=== PATIENT | male | born 1990 | race Two or more races ===

== ENCOUNTER → 2021-10-05 08:54 | Outpatient (BNVA) | payer MEDICAID, SELFPAY | PROVIDERS: PCP Internal Medicine; Visit Provider Internal Medicine Endocrinology, Diabetes & Metabolism | DX: E10.65 Type 1 diabetes mellitus with hyperglycemia (principal) | CPT/HCPCS: 82947; 83036; 99202 ==

== ENCOUNTER 2021-10-09 13:44 | Outpatient (REF) | payer MEDICAID, SELFPAY ==
[2021-10-09 15:16] LABS: Thyroid Stimulating Hormone 0.69 uIU/mL (0.32-4.0)
[2021-10-09 16:03] LABS: Creatinine Urine 72.47 mg/dL; Microalbumin Urine < 5.0 mg/L
[2021-10-12 14:17] LABS: Glutamic acid decarboxylase Ab <5 IU/mL (<5)
== END 2021-10-09 13:45 | disposition home or self-care (01) ==
LOC: HO.LAB 13:44
PROVIDERS: PCP Internal Medicine; Visit Provider Internal Medicine Endocrinology, Diabetes & Metabolism
DX: E10.65 Type 1 diabetes mellitus with hyperglycemia (principal)
CPT/HCPCS: 36415; 82043; 84439; 84443; 86341

== ENCOUNTER → 2021-10-20 07:55 | Outpatient (BNVA) | payer MEDICAID, SELFPAY | PROVIDERS: PCP Internal Medicine; Visit Provider Registered Nurse Diabetes Educator | DX: E10.65 Type 1 diabetes mellitus with hyperglycemia (principal) | CPT/HCPCS: 99211 ==

== ENCOUNTER → 2021-10-30 09:56 | Outpatient (BNVA) | payer MEDICAID, SELFPAY | PROVIDERS: PCP Internal Medicine; Visit Provider Dietitian, Registered | DX: E10.65 Type 1 diabetes mellitus with hyperglycemia (principal) | CPT/HCPCS: 97802 ==

== ENCOUNTER → 2021-11-03 09:58 | Outpatient (BNVA) | payer MEDICAID, SELFPAY | PROVIDERS: PCP Internal Medicine; Visit Provider Registered Nurse Diabetes Educator | DX: E10.65 Type 1 diabetes mellitus with hyperglycemia (principal); Z71.89 Other specified counseling | CPT/HCPCS: 99211 ==

== ENCOUNTER → 2021-12-04 10:05 | Outpatient (BNVA) | payer MEDICAID, SELFPAY | PROVIDERS: PCP Internal Medicine; Visit Provider Dietitian, Registered | DX: E10.65 Type 1 diabetes mellitus with hyperglycemia (principal) | CPT/HCPCS: 97803 ==

== ENCOUNTER → 2022-05-02 09:41 | Outpatient (BNVA) | payer MEDICAID, SELFPAY | PROVIDERS: PCP Internal Medicine; Visit Provider Internal Medicine Endocrinology, Diabetes & Metabolism | DX: E10.65 Type 1 diabetes mellitus with hyperglycemia (principal) | CPT/HCPCS: 82947; 83036; 99212 ==

== ENCOUNTER 2022-05-03 10:04 | Outpatient (REF) | payer MEDICAID, SELFPAY | END 2022-05-03 10:05 | disposition home or self-care (01) | LOC: HO.LAB 10:04 | PROVIDERS: PCP Internal Medicine; Visit Provider Internal Medicine Endocrinology, Diabetes & Metabolism | DX: Z13.89 Encounter for screening for other disorder (principal) ==

== ENCOUNTER 2022-05-10 15:17 | Outpatient (REF) | payer MEDICAID, SELFPAY ==
[2022-05-10 16:32] LABS: Glucose Random 215 mg/dL (60-115)
[2022-05-11 22:43] LABS: C Peptide 3.55 ng/mL (0.80-3.85)
== END 2022-05-10 15:18 | disposition home or self-care (01) ==
LOC: HO.LAB 15:17
PROVIDERS: PCP Internal Medicine; Visit Provider Internal Medicine Endocrinology, Diabetes & Metabolism
DX: E10.65 Type 1 diabetes mellitus with hyperglycemia (principal)
CPT/HCPCS: 36415; 82947; 84681

== ENCOUNTER 2022-12-20 16:01 | Outpatient (REF) | payer MEDICAID, SELFPAY ==
[2022-12-20 18:52] LABS: Anion Gap 15 (12-20); Blood Urea Nitrogen 12 mg/dL (9-16); Calcium 8.3 mg/dL (8.4-10.2); Carbon Dioxide 21 mmol/L (22-29); Chloride 106 mmol/L (96-108); Cholesterol 155 mg/dL; Estimated Glomerular Filt Rate > 60; Glucose Random 258 mg/dL (60-115); HDL Cholesterol 30 mg/dL; LDL Cholesterol Calculated 67 mg/dl; Potassium 3.9 mmol/L (3.3-5.1); Sodium 138 mmol/L (135-145); Triglycerides 290 mg/dL
[2022-12-20 18:59] LABS: Creatinine Urine 171.36 mg/dL; Microalbum/Creatinine Ratio Ur 7.5 ug/mg cr
== END 2022-12-20 16:02 | disposition home or self-care (01) ==
LOC: HO.LAB 16:01
PROVIDERS: PCP Internal Medicine; Visit Provider Internal Medicine Endocrinology, Diabetes & Metabolism
DX: E10.65 Type 1 diabetes mellitus with hyperglycemia (principal)
CPT/HCPCS: 36415; 80048; 80061; 82043

== ENCOUNTER 2022-12-21 09:17 | Outpatient (AMB) | payer MEDICAID, SELFPAY ==
--- NOTE | 2022-12-21 09:19 | MHC.OFFVIS ---
Intake Vital Signs 12/21/22 09:23 Height 5 ft 3 in Weight 222 lb 3.615 oz BMI 39.4 BP 140/86 H Blood Pressure Location Lt brachial Position Sitting Pulse 69 Intake Visit Reasons: DM Intake Note: Patient present today to follow up on Type 1 Diabetes Mellitus. Patient receives DME supplies through: [employer] Last Diabetic Eye exam: Last Podiatry Visit: Random Glucose: 292mg/dl HgA1C: 11.3 Barrel Tester Required: No Accompanied by: Self / Same As Patient Allergies levofloxacin [From Levaquin] Adverse Reaction (Verified 12/21/22 09:26) Swelling, drooling quetiapine [From Seroquel] Adverse Reaction (Verified 12/21/22 09:26) Swelling HPI HPI Comments History of Present Illness Details 32 YO M with is seen in consultation for T1DM at the request of PCP. Initially diagnosed with TDM in 2 wks ago 2021 when presented with DKA. Was initially started on treatment with insulin . Current regimen: Lantus 37 units Humalog 6- 10 units AC TID Tried Mounjaro - had GI side effects Unfortunately, patient did not bring log book or glucometer to follow-up visit Does not Reports low sugars never. . Family history of autoimmunity no -in grandparents have Type 2 Has eyes checked yearly, last eye exam yrs ago needs to make appt , no retinopathy. Denies neuropathy, . Denies nephropathy,Not on FRANCA/ARB. Has HLD, on statin recently started by PCP. Denies history of CAD. Not Had diabetes education. Diet/Carb counting: No Denies prior episodes of DKA. Denies prior severe episodes of hypoglycemia requiring help or hospitalization. Labs: Anti-LOREN 65 Ab were negative. C-peptide response was adequate [facility] Medical History (Updated 12/05/21 @ 14:11 by Krupa Rodriguez, RD, LDN) Uncontrolled type 1 diabetes mellitus with hyperglycemia, without long-term current use of insulin Surgical History History of lung surgery Family History Mother Arthritis Other Family history of diabetes mellitus Social History Alcohol intake: current Alcohol intake frequency: a few times a week Patient Tobacco Use Status: Never used Tobacco Substance Use Type: Marijuana Physical Exam Vital Signs: Last Vital Signs Pulse 69 12/21/22 09:23 BP 140/86 H 12/21/22 09:23 BMI result Body Mass Index 39.4 Absence of Cushingoid features. Absence of acromegalic features. Neck exam reveals nl size thyroid about 15 gms. No thyroid nodules palpable. No carotid bruits present. Lungs CTA. Heart S1 S2, Reg R/R. No M/R/ G. Skin exam reveals absence of vitiligo or acanthosis nigricans. Abdominal exam reveals Soft NT/ND with NA BS. No organomegaly present. Extrem Other: Visual exam of foot performed. No ulcerations or open lesions. No onchomycosis, no callouses.Pulses 2 + distally. Sensation intact to monofilament exam. Vibratory sensation sensed 10 seconds in right, 10 seconds in left with 128 Hz tuning fork Results AMB Hemoglobin A1c AMB Hemoglobin A1c 11.3 % Last Edit by Lashay Tompkins on 12/21/22 09:44 Results Reviewed Results Reviewed: 12/21/22 09:30 Glucose, Whole Blood Routine Laboratory Last Values Glucose (Clinic) 292 mg/dL (60-115) H 12/21/22 09:30 Assessment & Plan Assessment & Plan (1) Uncontrolled type 1 diabetes mellitus with hyperglycemia, without long-term current use of insulin: Comment: Pt gaining weight, he has gained 13 lbs from October to November Code(s): E10.65 - Type 1 diabetes mellitus with hyperglycemia Plan: Is a 32-year-old male recently admitted with new onset diabetes? Type 1 versus type 2 with atypical presentation of DKA. He is currently being treated with basal-bolus insulin with excellent glycemic control. There is no known microvascular or macrovascular complications . Antibodies were negative suggesting presence of type 2 diabetes. Measurement of C-peptide shows patient has good insulin reserve Plan is to start Trulicity 0.75 mg Q weekly and titrate as patient tolerates. Will also prescribe Dexcom G7 S patient to technical supervisor the Dexcom G7 prior to initiating the Trulicity. Went over side effects of Trulicity including but not limited to nausea, vomiting risk pancreatitis. Could also start metformin and/or an SGLT 2 inhibitor in future if needed. Will also have patient follow up with informatics educator Orders: Orders AMB Hemoglobin A1c Today E11.9 - Type 2 diabetes mellitus without complications Medications: New blood-glucose sensor (Dexcom G7 Sensor device) As directed change every 10 days 3 ea 4RF dulaglutide (Trulicity) 0.75 mg (0.5 mL) subcut QWEEK 2 mL 5RF Coding Level of Care Code Est Pt Level 4 (63562) Diagnoses Uncontrolled type 1 diabetes mellitus with hyperglycemia, without long-term current use of insulin E10.65
[2022-12-21 09:23] VITALS: BP 140/86; PULSE 69; BMI 39.4
[2022-12-21 09:34] LABS: Glucose, Whole Blood 292 mg/dL (60-115)
== END 2022-12-21 09:45 | disposition home or self-care (01) ==
PROVIDERS: PCP Internal Medicine; Visit Provider Internal Medicine Endocrinology, Diabetes & Metabolism
DX: E11.9 Type 2 diabetes mellitus without complications (principal); E10.65 Type 1 diabetes mellitus with hyperglycemia
CPT/HCPCS: 99214

== ENCOUNTER → 2022-12-21 09:17 | Outpatient (BNVA) | payer MEDICAID, SELFPAY | PROVIDERS: Visit Provider Internal Medicine Endocrinology, Diabetes & Metabolism | DX: E10.65 Type 1 diabetes mellitus with hyperglycemia (principal) | CPT/HCPCS: 82947; 83036; 99212 ==

== ENCOUNTER 2023-02-28 14:33 | Outpatient (REF) | payer MEDICAID, SELFPAY ==
--- NOTE | ~2023-02-28 | XR_ITS ---
EXAMINATION: XR HIP, RIGHT CLINICAL INFORMATION: Right hip pain. COMPARISON: None available. TECHNIQUE: AP and frog-leg lateral views of the right hip. FINDINGS: No fracture. Alignment is anatomic. Hip joint space is maintained. Soft tissues are unremarkable. XR/XR hip RT min 2V IMPRESSION: Normal right hip.
[2023-02-28 15:49] LABS: Estimated Average Glucose 260 mg/dL; Hemoglobin A1c % 10.7 % (<6.0)
[2023-02-28 16:27] LABS: Alanine Aminotransferase 21 U/L (0-40); Albumin Level 3.9 g/dL (3.5-5.0); Alkaline Phosphatase 123 U/L (39-117); Anion Gap 17 (12-20); Aspartate Amino Transferase 22 U/L (5-37); Bilirubin Total 0.7 mg/dL (0.0-1.0); Blood Urea Nitrogen 11 mg/dL (9-16); Calcium 8.8 mg/dL (8.4-10.2); Carbon Dioxide 21 mmol/L (22-29); Chloride 102 mmol/L (96-108); Cholesterol 142 mg/dL (<200); Estimated Glomerular Filt Rate > 60; HDL Cholesterol 26 mg/dL (>40); LDL Cholesterol Calculated 58 mg/dL (<100); Sodium 136 mmol/L (135-145); Total Protein 7.7 g/dL (6.5-8.0); Triglycerides 294 mg/dL (<150)
[2023-02-28 17:57] LABS: Glucose Random 485 mg/dL (60-115)
[2023-02-28 18:02] LABS: Creatinine Urine 127.63 mg/dL
== END 2023-02-28 14:34 | disposition home or self-care (01) ==
LOC: HO.LAB 14:33
PROVIDERS: PCP Internal Medicine; Visit Provider Internal Medicine
DX: Z00.01 Encounter for general adult medical examination with abnormal findings (principal); M25.551 Pain in right hip; E11.65 Type 2 diabetes mellitus with hyperglycemia; E78.00 Pure hypercholesterolemia, unspecified; I10 Essential (primary) hypertension
CPT/HCPCS: 36415; 73502; 80053; 80061; 82043; 82570; 83036

== ENCOUNTER 2023-07-24 08:09 | Outpatient (AMB) | payer OTHER, SELFPAY ==
--- NOTE | 2023-07-24 08:12 | A.OFFVIS_ITS ---
Intake Vital Signs 07/24/23 08:13 Height 53 ft Weight 208 lb 8.917 oz BMI 0.4 BP 130/94 H Blood Pressure Location Lt brachial Position Sitting Pulse 70 Pulse Source Pulse Oximeter Intake Visit Reasons: DM-Confirmed Intake Note: Patient presents today to follow up on D1MT. Last Diabetic Eye exam: 05/2023 Last Podiatry Visit: Doesn't have one. Random Glucose: 323 mg/dl HgA1c: 11.9% Three Dimensional Map Modeler Required: No Allergies levofloxacin [From Levaquin] Adverse Reaction (Verified 12/21/22 09:26) Swelling, drooling quetiapine [From Seroquel] Adverse Reaction (Verified 12/21/22 09:26) Swelling Medication List - Last Reconciled 07/24/23 by Roderick Trejo MD alcohol swabs (Alcohol Prep Pads) pad topical atorvastatin 40 mg PO DAILY blood sugar diagnostic (FreeStyle Lite Strips) As directed 3 times a day blood-glucose sensor ([employer] G7 Sensor device) As directed change every 10 days dulaglutide (Trulicity) 1.5 mg (0.5 mL) subcut QWEEK glucagon 3 mg/actuation (Baqsimi) 3 mg intranasal ONCE insulin glargine-yfgn (Semglee (insulin glargine-yfgn) Pen) 28 units subcut DAILY insulin lispro (Humalog KwikPen (U-100) Insulin) 6 - 16 units subcut TID lancets (FreeStyle Lancets) As directed 3 times a day losartan 50 mg PO DAILY pen needle, diabetic (BD Ultra-Fine Mini Pen Needle) As directed pen needle, diabetic (BD Stephanie 2nd Gen Pen Needle) As directed HPI HPI Comments History of Present Illness Details 32 YO M with is seen in consultation fo r T1DM at the request of PCP. Initially diagnosed with TDM in 2 wks ago 2021 when presented with DKA. Was initially started on treatment with insulin . Current regimen: Lantus 37 units Humalog 6- 10 units AC TID Tried Mounjaro - had GI side effects . On Trulicity 0.75 mg Q weekly Unfortunately, patient did not bring log book or glucometer to follow-up visit. Was not on sensor but started today Does not Reports low sugars never. . Family history of autoimmunity no -in grandparents have Type 2 Has eyes checked yearly, last eye exam2 mos ago , no retinopathy. Denies neuropathy, . Denies nephropathy,Not on FRANCA/ARB. Has HLD, on statin recently started by PCP. Denies history of CAD. Had diabetes education. Diet/Carb counting: No Denies prior episodes of DKA. Denies prior severe episodes of hypoglycemia requiring help or hospitalization. No recent episodes of hypoglycemia Labs: Anti-LOREN 65 Ab were negative. C-peptide response was adequate [facility] Medical History (Updated 12/24/22 @ 16:51 by Roderick Trejo MD) Uncontrolled type 2 diabetes mellitus with hyperglycemia Uncontrolled type 1 diabetes mellitus with hyperglycemia, without long-term current use of insulin Surgical History History of lung surgery Family History Mother Arthritis Other Family history of diabetes mellitus Social History Alcohol intake: current Alcohol intake frequency: a few times a week Patient Tobacco Use Status: Never used Tobacco Substance Use Type: Marijuana Physical Exam Vital Signs: Last Vital Signs Pulse 70 07/24/23 08:13 BP 130/94 H 07/24/23 08:13 BMI result Body Mass Index 0.4 Absence of Cushingoid features. Absence of acromegalic features. Neck exam reveals nl size thyroid about 15 gms. No thyroid nodules palpable. No carotid bruits present. Lungs CTA. Heart S1 S2, Reg R/R. No M/R/ G. Skin exam reveals absence of vitiligo or acanthosis nigricans. Abdominal exam reveals Soft NT/ND with NA BS. No organomegaly present. Extrem Other: Visual exam of foot performed. No ulcerations or open lesions. No onchomycosis, no callouses.Pulses 2 + distally. Sensation intact to monofilament exam. Vibratory sensation sensed 10 seconds in right, 10 seconds in left with 128 Hz tuning fork Results AMB Hemoglobin A1c AMB Hemoglobin A1c 11.9 % Last Edit by MONI Edwards on 07/24/23 08:33 Results Reviewed Results Reviewed: Laboratory Last Values Glucose (Clinic) 323 mg/dL (60-115) H 07/24/23 08:22 Assessment & Plan Assessment & Plan (1) Uncontrolled type 1 diabetes mellitus with hyperglycemia, without long-term current use of insulin: Comment: Pt gaining weight, he has gained 13 lbs from October to November Code(s): E10.65 - Type 1 diabetes mellitus with hyperglycemia Plan: See plan for type 2 diabetes (2) Uncontrolled type 2 diabetes mellitus with hyperglycemia: Code(s): E11.65 - Type 2 diabetes mellitus with hyperglycemia Plan: Is a 32-year-old male recently admitted with new onset Type 2 DM diabetes? He is currently being treated with basal-bolus insulin with excellent glycemic control. There is no known microvascular or macrovascular complications . Antibodies were negative suggesting presence of type 2 diabetes. Plan is to increase the Trulicity to 1.5 mg Q weekly will have the patient r reinitiate the sensor Dexcom. . Will also have patient follow up with nurse educator. Once again, went over relationship with the patient of poor glycemic control to development of progression complications Orders: Orders AMB Hemoglobin A1c Today E11.65 - Type 2 diabetes mellitus with hyperglycemia, Z13.9 - Encounter for screening, unspecified Medications: New dulaglutide (Trulicity) 1.5 mg (0.5 mL) subcut QWEEK 2 mL 5RF Discontinued dulaglutide (Trulicity) Discontinued Reason: Doctor's Order 0.75 mg (0.5 mL) subcut QWEEK 2 mL 5RF Coding Level of Care Code Est Pt Level 4 (48346) Diagnoses Uncontrolled type 1 diabetes mellitus with hyperglycemia, without long-term current use of insulin E10.65 Uncontrolled type 2 diabetes mellitus with hyperglycemia E11.65
[2023-07-24 08:13] VITALS: BP 130/94; PULSE 70
[2023-07-24 08:26] LABS: Glucose, Whole Blood 323 mg/dL (60-115)
== END 2023-07-24 09:02 | disposition home or self-care (01) ==
PROVIDERS: PCP Internal Medicine; Visit Provider Internal Medicine Endocrinology, Diabetes & Metabolism
DX: E11.65 Type 2 diabetes mellitus with hyperglycemia (principal); Z79.4 Long term (current) use of insulin
CPT/HCPCS: 99214

== ENCOUNTER → 2023-07-24 08:09 | Outpatient (BNVA) | payer OTHER, SELFPAY | PROVIDERS: PCP Internal Medicine; Visit Provider Internal Medicine Endocrinology, Diabetes & Metabolism | DX: E10.65 Type 1 diabetes mellitus with hyperglycemia (principal) | CPT/HCPCS: 82947; 83036 ==

== ENCOUNTER 2023-08-14 06:58 | Outpatient (AMB) | payer OTHER, SELFPAY ==
--- NOTE | 2023-08-14 07:30 | MHC.AMDMED ---
Intake Intake Visit Reasons: DM-confirmed Injection Molding Machine Offbearer Required: No Accompanied by: Self / Same As Patient Allergies levofloxacin [From Levaquin] Adverse Reaction (Verified 12/21/22 09:26) Swelling, drooling quetiapine [From Seroquel] Adverse Reaction (Verified 12/21/22 09:26) Swelling HPI Comprehensive Diabetes Asmnt Most Recent Diabetes Results: Microalb/Creat Ratio 7.0 ug/mg cr (<30) 02/28/23 Cholesterol 142 mg/dL (<200) 02/28/23 HDL Cholesterol 26 mg/dL (>40) L 02/28/23 Triglycerides 294 mg/dL (<150) H 02/28/23 Creatinine 1.31 mg/dL (0.5-1.4) 02/28/23 Blood Urea Nitrogen 11 mg/dL (9-16) 02/28/23 Sodium 136 mmol/L (135-145) 02/28/23 Potassium 4.0 mmol/L (3.3-5.1) 02/28/23 Chloride 102 mmol/L (96-108) 02/28/23 Carbon Dioxide 21 mmol/L (22-29) L 02/28/23 Calcium 8.8 mg/dL (8.4-10.2) 02/28/23 AST 22 U/L (5-37) 02/28/23 ALT 21 U/L (0-40) 02/28/23 Total Protein 7.7 g/dL (6.5-8.0) 02/28/23 Albumin 3.9 g/dL (3.5-5.0) 02/28/23 [facility] Medical History (Updated 12/24/22 @ 16:51 by Roderick Trejo MD) Uncontrolled type 2 diabetes mellitus with hyperglycemia Uncontrolled type 1 diabetes mellitus with hyperglycemia, without long-term current use of insulin Surgical History History of lung surgery Family History Mother Arthritis Other Family history of diabetes mellitus Social History Alcohol intake: current Alcohol intake frequency: a few times a week Patient Tobacco Use Status: Never used Tobacco Substance Use Type: Marijuana Assessment & Plan Assessment & Plan (1) Uncontrolled type 2 diabetes mellitus with hyperglycemia: Code(s): E11.65 - Type 2 diabetes mellitus with hyperglycemia Plan: CGM Info Instructed Pt on what CGM can and can't do CGM Can: Give Pt minute by minute reading of glucose levels Displays glucose trend arrows that represents the direction glucose levels are fluctuating Give insight on decisions about how to dose insulin CGM cannot: Improve glucose control on its own Completely eliminate the need for all finger sticks Make dosing decision for you CGM is the reading of glucose in the interstitial fluid not actual blood glucose, finger sticks are still necessary when Pt's symptom?s do not match sensor reading and if sensors prompts Pt to do a fingerstick Patient? is interested in the Dexcom G7 Reviewed delay of CGM from fingersticks Reminded pt that if symptoms do not match sensor still needs to check fingersticks. Pump Assessment: Type of DM: Type 2 Dx at age: 31 Previous DKA: yes, at diagnosis 2021 Current Insulin Rx: MDI Patient takes insulin as prescribed: yes Patient? will be restarting Dexcom G7 Downloaded meter today? Patient did not bring meter today Patient? reports glycemic control as: poor Most recent Hgb A1C: 11.9% July 2023 Frequency of low BG: Unknown Low BG treatment: Fruit juice Frequency of high BG: daily Does patient check Ketones? no Has pt been on a pump in the past? no Reviewed insulin pump basics today with Patient. Explained pros and cons of insulin pumps. Showed pt various pumps, infusion sets, and cgms currently available. Reviewed need to wear pump 24/7 and need to change infusion set every 3 days. Also stressed importance of frequent BG checks, 4x daily minimum or use pump that is integrated with CGM.? TDD: 76 units Patient demonstrated motivation for continued insulin pump education and understands the need to complete education prior to starting insulin pump for best outcome. Will follow up for continued education. Coding Level of Care Code Est Pt Level 1 (83237) Diagnoses Uncontrolled type 2 diabetes mellitus with hyperglycemia E11.65
== END 2023-08-14 07:33 | disposition home or self-care (01) ==
PROVIDERS: PCP Internal Medicine; Visit Provider Registered Nurse Diabetes Educator
DX: E11.65 Type 2 diabetes mellitus with hyperglycemia (principal)

== ENCOUNTER → 2023-08-14 06:58 | Outpatient (BNVA) | payer OTHER, SELFPAY | PROVIDERS: PCP Internal Medicine; Visit Provider Registered Nurse Diabetes Educator | DX: E11.65 Type 2 diabetes mellitus with hyperglycemia (principal) | CPT/HCPCS: 99211 ==

== ENCOUNTER 2023-09-04 14:03 | Outpatient (AMB) | payer OTHER, SELFPAY ==
[2023-09-04 14:06] VITALS: BP 120/76; PULSE 94; BMI 37.5
--- NOTE | 2023-09-04 14:06 | A.OFFVIS_ITS ---
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 Patient's symptoms of hemoptysis and recurrent pneumonia that time. Subsequent radiographic diagnose of cancer and undergoing left lower lobectomy. Since then he is done well and has no recurrence issues. A for about a year he has been diagnose with diabetes which has remained uncontrolled with hemoglobin A1c 10.4 range. He is currently on also high-intensity statin therapy since he was diagnose with diabetes and he said last checked his LDL was within normal limits although do not have a copy of it. 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 Symptoms lasted for some time but then dissipated. He then had chest pain over the next 4 days. Since then he has not had any recurrent chest pain. He said he can walk few miles without short of breath if he walks at a normal pace. However if he carries weight up a flight of stairs or tries to run he does get short of breath immediately. Thinks this is due to his reduced pulmonary capacity. He has no wheezing. Denies smoking. Denies any strong family history of premature coronary artery disease. Denies lightheadedness, syncope. No heart failure symptoms. He had EKG done at your office which was abnormal and was therefore referred here for further evaluation. [facility] Medical History Uncontrolled type 2 diabetes mellitus with hyperglycemia Uncontrolled type 1 diabetes mellitus with hyperglycemia, without long-term current use of insulin Surgical History History of lung surgery Family History Mother Arthritis Other Family history of diabetes mellitus Social History Alcohol intake: current Alcohol intake frequency: a few times a week Patient Tobacco Use Status: Never used Tobacco Substance Use Type: Marijuana Physical Exam Vital Signs: Last Vital Signs Pulse 94 09/04/23 14:06 BP 120/76 09/04/23 14:06 BMI result Body Mass Index 37.5 Const General: cooperative, comfortable, no acute distress, alert, awake and Physically active Nutritional Appearance: obese Orientation/consciousness: patient oriented x3 Limitations: no limitations HEENT Head: Yes normocephalic and Yes atraumatic Neck Neck: Yes trachea midline, Yes supple and Yes no JVD Carotids: no bruits Resp Effort & Inspection: normal respiratory effort Auscultation: clear to auscultation bilaterally Cardio Jugular venous distension: no JVD Palpation: normal PMI Rate: regular rate Rhythm: regular rhythm Heart sounds: S1 normal heart sound present, S2 normal heart sound present, no click, no gallops, no murmurs and no rubs GI Auscultation: normal bowel sounds Skin General skin exam: no rashes or lesions noted Neuro General: patient oriented x3 and no focal motor deficits Extrem General: Yes no clubbing, cyanosis or edema Office Procedures EKG Details: EKG shows normal sinus rhythm with inferior Q-waves [id number], Complete Assessment & Plan Assessment & Plan (1) Atypical chest pain: Code(s): R07.89 - Other chest pain Plan: Atypical chest pain in a young male with history of uncontrolled diabetes and hyperlipidemia developed chest pain syndrome after exertional activity although not immediately but a day later. Patient then had the symptoms for about 4 days intermittently. Concern would be myocardial ischemia given his diabetes and hyperlipidemia and sedentary lifestyle. Suggest him to undergo exercise treadmill stress test especially given that his EKG shows Q-waves in lead 3 and AVF which is most likely due to body habitus. Also obtain echocardiogram to assess for LV systolic and diastolic function. As well as to evaluate for wall motion abnormality. These tests will be scheduled in near future. I had a long discussion with him about risk factor modification. Aggressive diabetes management goal hemoglobin A1c less than 7% needs to be pursued. Advised him lifestyle modification with weight loss as well as increase aerobic activity once his cardiac workup was within normal limits. Also target goal LDL less than 70 mg/dL being pursue through office. Follow up in the clinic in 6 weeks time, sooner p.r.n.. Thank you for allowing me to partake in his care Coding Level of Care Code New Pt Level 4 (42717) Diagnoses Atypical chest pain R07.89 CPT Codes EKG - CPT: 12632-[id number], Complete ([id number])
== END 2023-09-04 14:46 | disposition home or self-care (01) ==
PROVIDERS: PCP Internal Medicine; Visit Provider Internal Medicine Cardiovascular Disease
DX: R07.89 Other chest pain (principal)
CPT/HCPCS: 93010; 99204

== ENCOUNTER → 2023-09-04 14:03 | Outpatient (BNVA) | payer OTHER, SELFPAY | PROVIDERS: PCP Internal Medicine; Visit Provider Internal Medicine Cardiovascular Disease | DX: R07.89 Other chest pain (principal); E11.9 Type 2 diabetes mellitus without complications; E78.5 Hyperlipidemia, unspecified | CPT/HCPCS: 93005 ==

== ENCOUNTER → 2023-09-09 08:02 | Outpatient (REF) | payer OTHER, SELFPAY ==
--- NOTE | 2023-09-09 08:04 | CA_ITS ---
Acquisition Time: 2023-09-09 09:22:12 Total Exercise Time: 00:07:55 Test Indications: ATYPICAL CHEST PAIN Medications: HUMALOG ATROVASTATIN Protocol: USMAN Max HR: 160 BPM 85% of Pred: 187 BPM Max BP: 150/080 mmHG Max Work Load: 9.9 METS Exercise stress test exercise 7 min 55 sec of Usman protocol achieving 85% MPHR, with mild SOB, without chest discomfort, without arrhythmias, with normotensive resposne to exercise, without EKG changes. Breathing resolved with rest. Test reviewed with Dr. Nava Referred By: Min Nava Overread By: Keira Juarez
--- NOTE | 2023-09-09 08:04 | CA_ITS ---
Transthoracic Echocardiogram Patient (Last, First, Middle): Bautista Wiggins I Gender: Male Date of : 1990 Age: 33 Procedure Date: 09/09/2023 Procedure Type: Transthoracic Echocardiogram Location: OP Height: 160.02 cm Weight: 94.35 kg BSA: 1.97 m2 Heart Rate: 75 bpm BP: 118 / 82 mmHg Psychiatric Clinical Nurse Specialist: ED Referring MD: Min Nava MD Grapple Operator: Min Nava MD Symptoms: R07.89 - Other chest pain Study Quality: Adequate ECG Rhythm: Sinus Conclusions: - 1. Technically limited study 2. Normal LV ejection fraction 55-60% next 3. Cardiac valvular Dopplers within normal limits Findings Procedure Information Contrast agent, definity, is being given per protocol without apparent complications. The quality of the study was technically difficult. The study quality is limited by patients body habitus. Left Ventricle Normal left ventricular size, thickness, and systolic function. The visually estimated ejection fraction is between 55-60%. Spectral Doppler is indicative of a normal filling pattern. Right Ventricle Normal right ventricular cavity size and systolic function. Atria The left atrium is normal in size. Interatrial shunt cannot be excluded. The right atrium was not well visualized. Aortic Valve The aortic valve structure and function is likely normal. There is no aortic valve stenosis. There is no aortic valve regurgitation. Mitral Valve Likely normal mitral valve structure and function. There is trace mitral valve regurgitation. There is no mitral valve stenosis. Pulmonic Valve The pulmonic valve was not well visualized. Tricuspid Valve The tricuspid valve was not well visualized. Tricuspid regurgitation envelope is inadequate for calculation of right ventricular systolic pressure. Normal right atrial pressure. Great Vessels The aorta was not well visualized. The pulmonary artery was not well visualized. Venous The inferior vena cava is normal in size and collapses greater than 50% with inspiration. Pericardium/Pleural The pericardium was not well visualized. Prior Study Comparison No prior study available for comparison. Measurements 2D Linear Measurements IVSd: 0.79 0.6-0.9/0.6-1.0 cm LVIDd: 4.95 3.9-5.3/4.2-5.9 cm LVIDd Index: 2.51 2.4-3.2/2.2-3.1 cm/m2 LVIDs: 3.40 2.0-3.6 cm LVPWd: 0.76 0.7-1.1 cm LA Diam: 3.80 2.7-3.8/3.0-4.0 cm LAIDs Index: 1.93 1.5-2.3 cm/m2 LV Mass: 159.47 67-162/88-224 g LV Mass Index: 80.95 43-95/49-115 g/m2 LVOT Diam: 2.00 3.0+(-)1.3 cm 2D Systolic Function EF 4C: 57.20 >55% EF 2C: 55.60 >55% EF BiP: 55.70 >55% Mitral Valve MV Pk E: 0.81 MV PK A: 0.75 MV Decel Time: 145.00 E/A: 1.10 E'Lateral: 7.83 E'Medial: 6.53 E/E' Med: 12.30 E/E' Lat: 10.30 PHT: 43.00 MVA PHT: 5.12 Decel [place]: 5.55 Aortic Valve AoV Pk Jose Alberto: 1.22 AoV Pk Grad: 6.00 ELIZABETH: 2.62 LVOT LVOT Pk Jose Alberto: 1.05 LVOT Mn Jose Alberto: 0.73 LVOT VTI: 0.22 LVOT Pk Grad: 4.00 LVOT Mn Grad: 2.00 LVOT Diam: 2.00 LVOT Area: 3.14 Diastolic Function MV Pk E: 0.81 MV Pk A: 0.75 E/A: 1.10 E'Medial: 6.53 E/E' Med: 12.30 E' Laterial: 7.83 E/E' Lat: 10.30 Right Ventricle TAPSE (mm): 15.30 TVS' Jose Alberto: 10.00 Tricuspid Valve RA Press: 8.00 Great Vessels Aorta Sinus of Valsalva: 3.50 2.0-3.5 cm Ao Asc: 2.90 2.1-3.4 cm Pulmonary Veins Pulm Vein S/D 1.00 Pulmonary Valve PV Pk Jose Alberto: 1.06 Peak PV Grad: 4.00 Updated in Other Vendor System with Status of Final Min Nava MD electronically signed on 09/09/2023 4:45:50 PM with status of Final
== END ==
LOC: HO.CARD 08:02
PROVIDERS: PCP Internal Medicine; Visit Provider Internal Medicine Cardiovascular Disease
DX: R07.89 Other chest pain (principal)
CPT/HCPCS: 93017; 93306; Q9957

== ENCOUNTER → 2023-09-09 08:04 | Outpatient (BNV) | payer OTHER, SELFPAY | PROVIDERS: PCP Internal Medicine; Visit Provider Nurse Practitioner | DX: R06.02 Shortness of breath (principal); R07.89 Other chest pain | CPT/HCPCS: 93016; 93018; 93320; 93325; 93350; 93352 ==

== ENCOUNTER 2023-09-11 07:06 | Outpatient (AMB) | payer OTHER, SELFPAY ==
--- NOTE | 2023-09-11 07:25 | MHC.AMDMED ---
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 by: Self / Same As Patient Allergies levofloxacin [From Levaquin] Adverse Reaction (Verified 12/21/22 09:26) Swelling, drooling quetiapine [From Seroquel] Adverse Reaction (Verified 12/21/22 09:26) Swelling HPI Comprehensive Diabetes Asmnt Most Recent Diabetes Results: Microalb/Creat Ratio 7.0 ug/mg cr (<30) 02/28/23 Cholesterol 142 mg/dL (<200) 02/28/23 HDL Cholesterol 26 mg/dL (>40) L 02/28/23 Triglycerides 294 mg/dL (<150) H 02/28/23 Creatinine 1.31 mg/dL (0.5-1.4) 02/28/23 Blood Urea Nitrogen 11 mg/dL (9-16) 02/28/23 Sodium 136 mmol/L (135-145) 02/28/23 Potassium 4.0 mmol/L (3.3-5.1) 02/28/23 Chloride 102 mmol/L (96-108) 02/28/23 Carbon Dioxide 21 mmol/L (22-29) L 02/28/23 Calcium 8.8 mg/dL (8.4-10.2) 02/28/23 AST 22 U/L (5-37) 02/28/23 ALT 21 U/L (0-40) 02/28/23 Total Protein 7.7 g/dL (6.5-8.0) 02/28/23 Albumin 3.9 g/dL (3.5-5.0) 02/28/23 [facility] Medical History Uncontrolled type 2 diabetes mellitus with hyperglycemia Uncontrolled type 1 diabetes mellitus with hyperglycemia, without long-term current use of insulin Surgical History History of lung surgery Family History Mother Arthritis Other Family history of diabetes mellitus Social History Alcohol intake: current Alcohol intake frequency: a few times a week Patient Tobacco Use Status: Never used Tobacco Substance Use Type: Marijuana Assessment & Plan Assessment & Plan (1) Uncontrolled type 2 diabetes mellitus with hyperglycemia: Code(s): E11.65 - Type 2 diabetes mellitus with hyperglycemia Plan: Personal Continuous Glucose Monitor: Patients CGM information reviewed Reviewed patient's sensor data: Hypoglycemia: ? 0% Hyperglycemia:? 40% Time in Range:?60% Average glucose for the last 2 weeks? 174 mg/dL Glucose has improved, Pt reports he has been mmore consistent with take both Lantus and Humalog 15 min before meals Pt has decided to start insulin pump therapy with the ilet. Reviewed how to interpret trend arrows Reminded patient that to check finger sticks if symptoms do not match sensor reading. Discussed lag time between finger stick and sensor data.? Patient able to insert sensor independently at home without issue.? Patient Instructions: Patient instruction: CGM provides information on blood glucose control throughout the day, including hyperglycemia and hypoglycemia. ? Continue to monitor blood glucose as instructed. Follow nutrition guidelines provided. Report any discomfort promptly to health care provider. ?Stay well-hydrated. You can bathe ,shower, swim and exerce while wearing the glucose sensor. Do not submerge glucose sensor in water for more than 30 minutes. Remove sensor for MRI or CAT scan. Avoid Xray machine in airports - remove sensor or request wand Coding Level of Care Code Est Pt Level 1 (94205) Diagnoses Uncontrolled type 2 diabetes mellitus with hyperglycemia E11.65
== END 2023-09-11 07:37 | disposition home or self-care (01) ==
PROVIDERS: PCP Internal Medicine; Visit Provider Registered Nurse Diabetes Educator
DX: E11.65 Type 2 diabetes mellitus with hyperglycemia (principal)

== ENCOUNTER → 2023-09-11 07:06 | Outpatient (BNVA) | payer OTHER, SELFPAY | PROVIDERS: PCP Internal Medicine; Visit Provider Registered Nurse Diabetes Educator | DX: E11.65 Type 2 diabetes mellitus with hyperglycemia (principal) | CPT/HCPCS: 99211 ==

== ENCOUNTER 2023-10-03 09:29 | Outpatient (AMB) | payer OTHER, SELFPAY ==
--- NOTE | 2023-10-03 10:15 | A.OFFVIS_ITS ---
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 by: Self / Same As Patient Allergies levofloxacin [From Levaquin] Adverse Reaction (Verified 12/21/22 09:26) Swelling, drooling quetiapine [From Seroquel] Adverse Reaction (Verified 12/21/22 09:26) Swelling HPI Comprehensive Diabetes Asmnt Most Recent Diabetes Results: No Data to Display [facility] Medical History Uncontrolled type 2 diabetes mellitus with hyperglycemia Uncontrolled type 1 diabetes mellitus with hyperglycemia, without long-term current use of insulin Surgical History History of lung surgery Family History Mother Arthritis Other Family history of diabetes mellitus Social History Alcohol intake: current Alcohol intake frequency: a few times a week Patient Tobacco Use Status: Never used Tobacco Substance Use Type: Marijuana Assessment & Plan Assessment & Plan (1) Uncontrolled type 2 diabetes mellitus with hyperglycemia: Code(s): E11.65 - Type 2 diabetes mellitus with hyperglycemia Plan: Patient presents for pump training for iLet pump and CGM training today. The following topics were reviewed today: -Pump therapy basic concepts: Basal/bolus -Device settings: Bluetooth/mobile connection (if applicable), correct date and time, sound volume -CGM settings(if integrated system): CGM graft views and trend arrows, alerts and alarms, Start new sensor Insulin delivery settings Instructed patient to only use room temperature insulin, how to load cartridge or fill pod, with insulin. Fill tubing and cannula (if applicable) Inserting infusion set or starting pod Troubleshooting after starting new pod or inserting new insulin set: Occlusion, adhesive tape sensitivity, redness Check BG 2 hours after site change Safety information: Importance of a backup plan, for manual injections, proper prescriptions and emergency supplies ketone strips, and rules for testing for ketones Patient was able to insert insulin set today without difficulty. Patient understands the basic concepts of pump therapy, how to give insulin for meals and snacks, how to troubleshoot for hyper and hypoglycemia. Patient will follow up with CDE as instructed Patient will contact CDE with questions or concerns, patient given IT number to support in any technical issues related to insulin pump Patient Instructions: Patient will follow-up with teachers' assistant in 1 week Coding Level of Care Code Est Pt Level 1 (61352) Diagnoses Uncontrolled type 2 diabetes mellitus with hyperglycemia E11.65
== END 2023-10-03 10:51 | disposition home or self-care (01) ==
PROVIDERS: PCP Internal Medicine; Visit Provider Registered Nurse Diabetes Educator
DX: E11.65 Type 2 diabetes mellitus with hyperglycemia (principal)

== ENCOUNTER → 2023-10-03 09:29 | Outpatient (BNVA) | payer OTHER, SELFPAY | PROVIDERS: PCP Internal Medicine; Visit Provider Registered Nurse Diabetes Educator | DX: Z46.81 Encounter for fitting and adjustment of insulin pump (principal); E11.65 Type 2 diabetes mellitus with hyperglycemia | CPT/HCPCS: 99211 ==

== ENCOUNTER 2023-10-15 09:55 | Outpatient (AMB) | payer OTHER, SELFPAY ==
--- NOTE | 2023-10-15 10:08 | MHC.AMDMED ---
Intake Intake Visit Reasons: New pump f/u Allergies levofloxacin [From Levaquin] Adverse Reaction (Verified 12/21/22 09:26) Swelling, drooling quetiapine [From Seroquel] Adverse Reaction (Verified 12/21/22 09:26) Swelling HPI Comprehensive Diabetes Asmnt Most Recent Diabetes Results: Microalb/Creat Ratio 7.0 ug/mg cr (<30) 02/28/23 Cholesterol 142 mg/dL (<200) 02/28/23 HDL Cholesterol 26 mg/dL (>40) L 02/28/23 Triglycerides 294 mg/dL (<150) H 02/28/23 Creatinine 1.31 mg/dL (0.5-1.4) 02/28/23 Blood Urea Nitrogen 11 mg/dL (9-16) 02/28/23 Sodium 136 mmol/L (135-145) 02/28/23 Potassium 4.0 mmol/L (3.3-5.1) 02/28/23 Chloride 102 mmol/L (96-108) 02/28/23 Carbon Dioxide 21 mmol/L (22-29) L 02/28/23 Calcium 8.8 mg/dL (8.4-10.2) 02/28/23 AST 22 U/L (5-37) 02/28/23 ALT 21 U/L (0-40) 02/28/23 Total Protein 7.7 g/dL (6.5-8.0) 02/28/23 Albumin 3.9 g/dL (3.5-5.0) 02/28/23 [facility] Medical History Uncontrolled type 2 diabetes mellitus with hyperglycemia Uncontrolled type 1 diabetes mellitus with hyperglycemia, without long-term current use of insulin Surgical History History of lung surgery Family History Mother Arthritis Other Family history of diabetes mellitus Social History Alcohol intake: current Alcohol intake frequency: a few times a week Patient Tobacco Use Status: Never used Tobacco Substance Use Type: Marijuana Assessment & Plan Assessment & Plan (1) Uncontrolled type 2 diabetes mellitus with hyperglycemia: Code(s): E11.65 - Type 2 diabetes mellitus with hyperglycemia Plan: Patient presents for pump training for iLet pump and CGM training today. The following topics were reviewed today: -Pump therapy basic concepts: Basal/bolus -Always dose 15 minutes prior to meals - Off pump backup insulin plan ??? High Alert: 70 mg/dl ??? Low Alert: 180 mg/dl CGM Above target 7.3% At target 92.2% Below target 0.2% Patient's average glucose for the past 7 days 137 mg/dL TDD: 37.9 units Basal: 18 units Instructed patient to only use room temperature insulin, how to load cartridge or fill pod, with insulin. Fill tubing and cannula (if applicable) Troubleshooting after starting new pod or inserting new insulin set: Occlusion, adhesive tape sensitivity, redness Check BG 2 hours after site change Reviewed Safety information: Importance of a backup plan, for manual injections, proper prescriptions and emergency supplies ketone strips, and rules for testing for ketones Patient understands the basic concepts of pump therapy, how to give insulin for meals and snacks, how to troubleshoot for hyper and hypoglycemia. Patient will follow up with [facility] as needed Patient will contact [facility] with questions or concerns, patient given IT number to support in any technical issues related to insulin pump Portions of this note were created using voice recognition software, please excuse any words or phrases that may have been misinterpreted. Coding Level of Care Code Est Pt Level 1 (85602) Diagnoses Uncontrolled type 2 diabetes mellitus with hyperglycemia E11.65
== END 2023-10-15 10:11 | disposition home or self-care (01) ==
PROVIDERS: PCP Internal Medicine; Visit Provider Registered Nurse Diabetes Educator
DX: E11.65 Type 2 diabetes mellitus with hyperglycemia (principal)

== ENCOUNTER → 2023-10-15 09:55 | Outpatient (BNVA) | payer OTHER, SELFPAY | PROVIDERS: PCP Internal Medicine; Visit Provider Registered Nurse Diabetes Educator | DX: Z46.81 Encounter for fitting and adjustment of insulin pump (principal); E11.65 Type 2 diabetes mellitus with hyperglycemia | CPT/HCPCS: 99211 ==

== ENCOUNTER 2023-11-01 05:37 | Emergency (ER) | payer OTHER, SELFPAY ==
--- NOTE | ~2023-11-01 | XR_ITS ---
EXAMINATION: XR HAND, RIGHT CLINICAL INFORMATION: Injury. COMPARISON: None available. TECHNIQUE: PA, lateral, and oblique views of the right hand. FINDINGS: Mildly displaced impacted fracture involving the base of the fifth digit proximal phalanx. No definite intra-articular extension. No dislocation. Regional soft tissue swelling. XR/XR hand RT 2V IMPRESSION: Mildly displaced impacted fracture involving the base of the fifth digit proximal phalanx.
[2023-11-01 05:39] VITALS: BP 144/93; PULSE 64; RESP 16; TEMP 36.8; O2SAT 99; BMI 38.3
--- NOTE | 2023-11-01 06:39 | ED_ITS ---
HPI - Extremity Problem General Chief complaint: Extremity Injury, Upper Stated complaint: r hand inj Time Seen by Provider: 11/01/23 06:35 Source: patient Mode of arrival: ambulatory Limitations: no limitations History of Present Illness ED Provider: Erin Palacio PA-C HPI Narrative: Patient is a 33 year old assigned male at with a history of DM presenting to the emergency department today with right 5th finger pain. Patient states that 2 days ago he was working on something and fell onto his right hand with a closed fist. Patient states that he has had pain ever since. Patient denies any head strike, loss of consciousness, dizziness, lightheadedness, abdominal pain, nausea, vomiting, fever, chills, blurry vision, double vision, loss of vision, chest pain, difficulty breathing, shortness of breath, back pain, night sweats, pain with urination, increased urinary frequency, increased urinary urgency, blood in his urine or stool, syncope or a near syncopal episode, bowel incontinence, bladder incontinence, or any other complaints at this time. MD Complaint: extremity pain Onset (ago): day(s) (2) Pain Consistency: constant Location: right and other (5th finger) Severity scale (1-10): 4 Quality: aching and dull Radiation: none Relieving factors: immobilization Exacerbating factors: range of motion and palpation Associated symptoms: denies other symptoms Related Data Home Medications ?Medication ?Instructions ?Recorded ?Confirmed alcohol swabs (Alcohol Prep Pads) pad topical 10/05/21 09/04/23 insulin lispro 100 unit/mL 6 - 16 unit subcut TID 10/05/21 09/04/23 subcutaneous pen (Humalog KwikPen (U-100) Insulin) pen needle, diabetic 31 gauge x #50 ea 10/05/21 05/02/22 3/16 (BD Ultra-Fine Mini Pen Needle) blood sugar diagnostic (FreeStyle #10 ea 05/02/22 05/02/22 Lite Strips) lancets 28 gauge (FreeStyle #100 ea 05/02/22 05/02/22 Lancets) pen needle, diabetic 32 gauge x #50 ea 05/02/22 05/02/22/32 (BD Stephanie 2nd Gen Pen Needle) atorvastatin 40 mg tablet 40 mg PO DAILY 07/24/23 09/04/23 losartan 50 mg tablet 50 mg PO DAILY 07/24/23 09/04/23 dulaglutide 1.5 mg/0.5 mL 1.5 mg subcut QWEEK 09/04/23 09/04/23 subcutaneous pen injector (Trulicity) Previous Rx's ?Medication ?Instructions ?Recorded glucagon 3 mg/actuation nasal 3 mg intranasal ONCE #1 ea 10/05/21 spray (Baqsimi) blood-glucose sensor (Dexcom G7 #3 ea 12/21/22 Sensor device) acetone (urine) test (Ketostix #100 ea 09/11/23 strips) insulin glargine 100 unit/mL (3 44 unit (0.44 mL) subcut QAM #45 mL 09/30/23 mL) subcutaneous pen (Lantus Solostar U-100 Insulin) insulin lispro 100 unit/mL See Rx Instructions subcut TID #30 09/30/23 subcutaneous solution (Humalog mL U-100 Insulin) Allergies Allergy/AdvReac Type Severity Reaction Status Date / Time levofloxacin [From Levaquin] AdvReac Swelling, Verified 11/01/23 05:42 drooling quetiapine [From Seroquel] AdvReac Swelling Verified 11/01/23 05:42 Review of Systems Constitutional: Constitutional: Reports no additional constitutional complaints, Denies chills, Denies fever(s) and Denies night sweats Eyes: Eyes: Reports no additional eye complaints, Denies blurry vision, Denies change in vision, Denies diplopia, Denies eye discharge, Denies loss of vision and Denies eye pain ENT: Denies dizziness Cardiovascular: Cardiovascular: Reports no additional cardiovascular complaints, Denies chest pain, Denies lightheadedness, Denies Loss of Consciousness and Denies dyspnea Respiratory: Respiratory: Reports no additional respiratory complaints and Denies dyspnea Gastrointestinal: Gastrointestinal: Reports no additional gastrointestinal c omplaints, Denies abdominal pain, Denies melena, Denies hematochezia, Denies change in bowel habits and Denies change in stool character Genitourinary: Genitourinary: Reports no additional male genitourinary complaints, Denies hematuria, Denies oliguria, Denies difficulty urinating, Denies dysuria, Denies urinary frequency, Denies urinary hesitancy, Denies urinary incontinence and Denies urinary urgency Musculoskeletal: Musculoskeletal: Reports no additional musculoskeletal complaints, Denies numbness and Denies tingling Comments: right 5th finger pain Neurologic: Denies dizziness, Denies loss of vision, Denies numbness and Denies tingling Psychiatric: Psychiatric: Reports no additional psychiatric complaints Endocrine: Endocrine: Reports no additional endocrine complaints Hematologic/Lymphatic: Hematologic/Lymphatic: Reports no additional hematologic/lymphatic complaints Allergic/Immunologic: Allergic/Immunologic: Reports no additional allergic/immunologic complaints PMF Past Medical History Attestation statement: The following information was validated with the patient. Source: old records reviewed and nursing notes reviewed Medical History Uncontrolled type 2 diabetes mellitus with hyperglycemia Uncontrolled type 1 diabetes mellitus with hyperglycemia, without long-term current use of insulin Surgical History History of lung surgery Family History Family History Mother Arthritis Other Family history of diabetes mellitus Social History Social History Alcohol intake: current Alcohol intake frequency: a few times a week Patient Tobacco Use Status: Never used Tobacco Substance Use Type: Marijuana Physical Exam Vital Signs: Vital Signs: Last Vital Signs Temp 97.8 F 11/01/23 08:57 Pulse 62 11/01/23 08:57 Resp 18 11/01/23 08:57 BP 142/89 H 11/01/23 08:57 Pulse Ox 98 11/01/23 08:57 O2 Del Method Room Air 11/01/23 08:57 BMI result Body Mass Index 38.3 Const: General: cooperative, no acute distress, alert and awake Nutritional Appearance: well nourished Orientation/consciousness: patient oriented x3 Limitations: no limitations HEENT: Head: Yes normal to inspection and Yes atraumatic Ears: hearing grossly normal bilaterally and external ears normal General nose exam: Normal external nose present, no nasal discharge noted and no epistaxis Face and sinus: Yes normal facial exam, No abrasion and No laceration Mouth: Normal oral and palatal mucosa present, no drooling and no muffled voice Eyes: General: appearance normal, both eyes and all related structures Periorbital: periorbital findings normal Eyelids: Yes eyelids normal Conjunctivae: conjunctivae normal Pupils: Equal, round and reactive pupils present EOM: EOMs intact bilaterally Neck: Neck: Yes normal visual inspection, Yes full ROM and Yes no lymphadenopathy Chest: Chest palpation & inspection: normal inspection of the chest Resp: Effort & Inspection: normal respiratory effort and able to speak in complete sentences GI: Inspection: Yes normal to inspection Neuro: General: patient oriented x3 and moves all extremities Cranial nerves: Yes Equal, round and reactive pupils present Cognition (Neuro): normal cognition Motor exam (neuro): 5/5 motor strength present throughout Sensory Exam: Normal double simultaneous stimulation for sensation Coordination: [id number] test normal Extrem: Other: pain with palpation of the right 5th finger. Able to passive General: Yes normal to inspection and Yes capillary refill normal Psych: Appearance: grossly normal Mental Status: mental status grossly normal Affect: normal affect Attitude: cooperative Thought process: Normal thought process present Thought content: Normal thought content pr esent Insight: Good insight present (Psych) Medical Decision Making Medical Decision Making MDM Narrative: Patient is a 33 year old assigned male at with a history of DM presenting to the emergency department today with right 5th finger pain. Patient's physical exam was as noted in the physical exam portion of this note. Patient's right hand x-ray showed a mildly displaced impacted fracture involving the base of the 5th digits proximal phalanx. I spoke to the orthopedic PA in home sales consultant who evaluated the patient and recommended an ulnar gutter splint with the 5th finger in extension and mild radial deviation. I explained my physical exam findings as well as all test results to the patient. I answered all questions asked by the patient. Patient's right 5th finger was placed in an ulnar gutter splint, without incident. Patient's PMS was intact prior to and after splint placement. Patient was also placed in a sling, without incident. Patient's PMS was intact prior to and after sling placement. I advised the patient that he should only be using the sling when ambulating. I stressed the importance of the patient taking his medication as prescribed. I stressed the importance of the patient following up with his primary care provider and an orthopedic provider. I stressed the importance of the patient returning to the emergency department immediately if his symptoms were to worsen or if he were to develop any dizziness, shortness of breath, difficulty breathing, chest pain, blurry vision, loss of vision, nausea, vomiting, abdominal pain, fever, chills, back pain, or any other complaints. Patient verbalized agreement and understanding with this treatment plan and discharge. Differential Diagnosis Differential Diagnoses: The differential diagnosis associated with the presentation includes Finger fracture Hand fracture Admission/Observation Consideration of admission/observation: Escalation of care including admission/observation considered Patient would have been admitted to the hospital had his work up had any findings where hospital admission was appropriate and his clinical presentation warranted hospital admission. Consult Healthcare Provider Management of the patient was discussed with: Medical Assistant Per Diem (spoke with the orthopedic PA as noted in the MDM Rationale portion of this note.) Independent Interpretation I performed an independent interpretation of an: Plain X-Ray Interpretation: My interpretation is in agreement with the radiologist's impression of this imaging study. ---- EXAMINATION: XR HAND, RIGHT CLINICAL INFORMATION: Injury. COMPARISON: None available. TECHNIQUE: PA, lateral, and oblique views of the right hand. FINDINGS: Mildly displaced impacted fracture involving the base of the fifth digit proximal phalanx. No definite intra-articular extension. No dislocation. Regional soft tissue swelling. XR/XR hand RT 2V IMPRESSION: Mildly displaced impacted fracture involving the base of the fifth digit proximal phalanx. Dictated By: Craig Silva MD Signed By: Electronically signed by Craig Silva MD 11/01/23 0818 Radiology Impression Discussion of test interpretation with radiology: I have reviewed the radiologist's reading. Procedures Orthopedic Splinting/Casting Injury #1: Side: right Upper Extremity Injury Location: finger (5th) Upper Extremity Immobilizer: sling/shoulder immobilizer and ulnar gutter Critical Care Time Critical Care Time Critical Care Time: Yes Total Critical Care Time: 38 Attestation: I spent 38 minutes of Critical Care Time with this patient. This does not include time spent on separately reported billable procedures. Discharge Plan Discharge Clinical Impression: Finger fracture Patient Disposition: Home, Self-Care Instructions: Finger Fracture (ED) Additional Instructions: Follow up with your primary care provider and an orthopedic provider. Do NOT get the splint wet. Please leave the splint in place. If your fingers begin to tingle or change color, loosen the outside FRANCA wrap. If you find yourself loosening the FRANCA wrap to the point where you see the splinting material underneath, please return to the ER immediately. Return to the emergency department immediately if your symptoms worsen or if you develop any dizziness, shortness of breath, difficulty breathing, chest pain, blurry vision, loss of vision, nausea, vomiting, abdominal pain, fever, chills, back pain, or any other complaints. Prescriptions: No Action (DME) Ketostix Strip See Rx Instructions .Route Qty: 100 4RF Rx Instructions: As directed insulin lispro [Humalog U-100 Insulin] 100 unit/mL solution See Rx Instructions subcut TID Qty: 30 4RF Rx Instructions: infuse up to 80 units via insulin pump subcutaneously 3 times a day; insulin glargine [Lantus Solostar U-100 Insulin] 100 unit/mL (3 mL) insulin pen 44 unit subcut QAM Qty: 45 4RF insulin lispro [Humalog KwikPen Insulin] 100 unit/mL insulin pen 6 - 16 unit subcut TID (DME) pen needle, diabetic [BD Ultra-Fine Mini Pen Needle] 31 gauge x 3/16 needle See Rx Instructions .ROUTE QID Qty: 50 Rx Instructions: As directed alcohol swabs [Alcohol Prep Pads] Pads, Medicated topical Baqsimi 3 mg/actuation spray,non-aerosol 3 mg intranasal ONCE Qty: 1 4RF (DME) lancets [FreeStyle Lancets] 28 gauge misc See Rx Instructions topical QID Qty: 100 Rx Instructions: As directed 3 times a day (DME) pen needle, diabetic [BD Stephanie 2nd Gen Pen Needle] 32 gauge x 5/32 needle See Rx Instructions .ROUTE QID Qty: 50 Rx Instructions: As directed (DME) FreeStyle Lite Strips Strip See Rx Instructions .ROUTE .MEDSUPPLY Qty: 10 Rx Instructions: As directed 3 times a day (DME) Dexcom G7 Sensor Device See Rx Instructions .Route Qty: 3 4RF Rx Instructions: As directed change every 10 days atorvastatin 40 mg tablet 40 mg PO DAILY losartan 50 mg tablet 50 mg PO DAILY Trulicity 1.5 mg/0.5 mL pen injector 1.5 mg subcut QWEEK Referrals: [facility] [Provider Group] (Call to establish and follow up with an orthopedic provider. ) Emelina Yanez MD [Primary Care Provider] - Stand Alone Forms: Work/School Release Interventions: ED Discharge Assessment Last Done: 11/01/23 08:57 Discharge Date/Time: 11/01/23 08:58 Print Language: Togolese
--- NOTE | 2023-11-01 08:04 | P.CONOP_ITS ---
History of Present Illness HPI Consult date: 11/01/23 <LIOR Coleman - Last Filed: 11/01/23 08:29> Chief complaint: r hand inj <LIOR Coleman - Last Filed: 11/01/23 08:29> Narrative: Patient is a 33-year-old male who presents to the ED after a fall onto the ulnar aspect of his right hand 2 days ago. The patient reports that he was attempting repairs on his car, when he slipped, fell, and landed with all of his weight on the ulnar aspect of his right hand. He reports that since that time, he has noticed that he is unable to extend his finger fully, and reports severe pain whenever something applied axial pressure to the small digit. While in the ED, x-rays were taken of his right hand, which demonstrate an extra-articular fracture in the base of the right small finger proximal phalanx. <LIOR Coleman - Last Filed: 11/01/23 08:29> Review of Systems Review of Systems: Yes all other systems are reviewed and are negative <LIOR Coleman - Last Filed: 11/01/23 08:29> [facility] Past Medical History Medical History: Medical History Uncontrolled type 2 diabetes mellitus with hyperglycemia Uncontrolled type 1 diabetes mellitus with hyperglycemia, without long-term current use of insulin <LIOR Coleman - Last Filed: 11/01/23 08:29> Family History Family History: Family History Mother Arthritis Other Family history of diabetes mellitus <LIOR Coleman - Last Filed: 11/01/23 08:29> Surgical History Surgical History: Surgical History History of lung surgery <LIOR Coleman - Last Filed: 11/01/23 08:29> Social History Social History: Social History Alcohol intake: current Alcohol intake frequency: a few times a week Patient Tobacco Use Status: Never used Tobacco Substance Use Type: Marijuana Advance Directives: No Advance Directives Information Provided: Yes <LIOR Coleman - Last Filed: 11/01/23 08:29> Meds Allergies/Adverse reactions: Allergies Allergy/AdvReac Type Severity Reaction Status Date / Time levofloxacin [From Levaquin] AdvReac Swelling, Verified 11/01/23 05:42 drooling quetiapine [From Seroquel] AdvReac Swelling Verified 11/01/23 05:42 <LIOR Coleman - Last Filed: 11/01/23 08:29> Home medications: Home Medications ?Medication ?Instructions ?Recorded ?Confirmed ?Last Taken ?Type alcohol swabs (Alcohol Prep Pads) pad topical 10/05/21 09/04/23 Unknown History insulin lispro 100 unit/mL 6 - 16 unit subcut TID 10/05/21 09/04/23 Unknown History subcutaneous pen (Humalog KwikPen (U-100) Insulin) pen needle, diabetic 31 gauge x #50 ea 10/05/21 05/02/22 Unknown History 3/16 (BD Ultra-Fine Mini Pen Needle) blood sugar diagnostic (FreeStyle #10 ea 05/02/22 05/02/22 Unknown History Lite Strips) lancets 28 gauge (FreeStyle #100 ea 05/02/22 05/02/22 Unknown History Lancets) pen needle, diabetic 32 gauge x #50 ea 05/02/22 05/02/22 Unknown History (BD Stephanie 2nd Gen Pen Needle) atorvastatin 40 mg tablet 40 mg PO DAILY 07/24/23 09/04/23 Unknown History losartan 50 mg tablet 50 mg PO DAILY 07/24/23 09/04/23 Unknown History dulaglutide 1.5 mg/0.5 mL 1.5 mg subcut QWEEK 09/04/23 09/04/23 Unknown History subcutaneous pen injector (Trulicity) <LIOR Coleman - Last Filed: 11/01/23 08:29> Physical Exam Vital Signs: Vital Signs: Last Vital Signs Temp 98.2 F 11/01/23 05:39 Pulse 64 11/01/23 05:39 Resp 16 11/01/23 05:39 BP 144/93 H 11/01/23 05:39 Pulse Ox 99 11/01/23 05:39 O2 Del Method Room Air 11/01/23 05:39 BMI result Body Mass Index 38.3 <LIOR Coleman - Last Filed: 11/01/23 08:29> Const: Other: Patient is alert, oriented, cooperative, and in no acute distress <LIOR Coleman Lori Last Filed: 11/01/23 08:29> HEENT: Head: Yes normocephalic and Yes atraumatic <LIOR Coleman Lori Last Filed: 11/01/23 08:29> Resp: Effort & Inspection: normal respiratory effort and able to speak in complete sentences <LIOR Coleman Lori Last Filed: 11/01/23 08:29> Cardio: Jugular venous distension: no JVD <LIOR Coleman Lori Last Filed: 11/01/23 08:29> Neuro: General: gait normal <LIOR Coleman Lori Last Filed: 11/01/23 08:29> Cognition (Neuro): normal cognition <LIOR Coleman Lori Last Filed: 11/01/23 08:29> Extrem: Other: On inspection, the patient demonstrates mild swelling in the right small finger. The patient holds the right small finger and approximately 30 degrees of flexion at the MCP joint, and 45 degrees of flexion at the PIP joint. There is ulnar deviation noted in the right small finger. Mild pain to palpation of the right small digit. The patient is able to fully make a fist with difficulty, is able to return the small finger to the same position he was holding it at rest, but is unable to extend his small finger fully at the MCP or PIP joints. No rotational deformity noted. NVI. All other findings WNL. <LIOR Coleman Lori Last Filed: 11/01/23 08:29> Psych: Appearance: grossly normal <LIOR Coleman Lori Last Filed: 11/01/23 08:29> Mental Status: mental status grossly normal <LIOR Coleman Lori Last Filed: 11/01/23 08:29> Results Labs Labs: All other labs normal. <LIOR Coleman Last Filed: 11/01/23 08:29> Diagnostic results Wrist/Hand x-ray: report reviewed and image reviewed (X-rays obtained in the ED today and independently reviewed by me, Felix Chahal PA-C, demonstrate extra-articular fracture of the right small finger proximal phalanx, with radial deviation. ) <LIOR Coleman - Last Filed: 11/01/23 08:29> Assessment and Plan (1) Fracture of proximal phalanx of digit of right hand: Qualifiers: Encounter type: initial encounter Fracture type: closed Qualified Code(s): S62.619A - Displaced fracture of proximal phalanx of unspecified finger, initial encounter for closed fracture <LIOR Coleman - Last Filed: 11/01/23 08:29> Status: Acute <LIOR Coleman - Last Filed: 11/01/23 08:29> At this time, the plan for this patient is to be placed into an ulnar gutter splint with the fingers held in extension with mild radial deviation. Patient will be seen in clinic by Dr. Quintana on Saturday for evaluation of fracture and potential extensor tendon injury. In the meantime, patient is advised to avoid heavy lifting with his right hand, the to keep the splint on at all times. <LIOR Coleman - Last Filed: 11/01/23 08:29> Procedures Date of Service Date of Service: 11/01/23 <LIOR Coleman - Last Filed: 11/01/23 08:29> 11/01/23 <Adan Lang PA-C - Last Filed: 11/01/23 08:53>
[2023-11-01 08:41] VITALS: BP 142/89; PULSE 62; RESP 18; TEMP 36.6; O2SAT 98
[2023-11-01 08:57] VITALS: BP 142/89; PULSE 62; RESP 18; TEMP 36.6; O2SAT 98
== END 2023-11-01 08:58 | disposition home or self-care (01) ==
PROVIDERS: Emergency Provider Emergency Medicine; PCP Internal Medicine
DX: S62.606A Fracture of unspecified phalanx of right little finger, initial encounter for closed fracture (principal); M79.644 Pain in right finger(s); W01.10XA Fall on same level from slipping, tripping and stumbling with subsequent striking against unspecified object, initial encounter; Y93.9 Activity, unspecified; Y92.9 Unspecified place or not applicable; Y99.8 Other external cause status
CPT/HCPCS: 29130; 73120; 99283; 99284

== ENCOUNTER → 2023-11-01 05:45 | Outpatient (BNV) | payer OTHER, SELFPAY | PROVIDERS: Emergency Provider Emergency Medicine; PCP Internal Medicine; Visit Provider Physician Assistant | DX: S62.616A Displaced fracture of proximal phalanx of right little finger, initial encounter for closed fracture (principal) | CPT/HCPCS: 99283 ==

== ENCOUNTER 2023-11-05 09:46 | Outpatient (REF) | payer OTHER, SELFPAY ==
--- NOTE | ~2023-11-05 | XR_ITS ---
EXAMINATION: XR HAND, RIGHT CLINICAL INFORMATION: Pain in right hand, attention small finger. COMPARISON: November 01, 2023. TECHNIQUE: 4 views of the hand, right hand. FINDINGS: Redemonstration of mildly displaced, impacted fracture involving the base of the fifth digit proximal phalanx. No definitive intra-articular extension. Regional soft tissue swelling. Fracture lines are less distinct, suggesting some mild interval bridging callus formation. Ulnar minus variance. XR/XR hand RT min 3V IMPRESSION: Redemonstration of mildly displaced, impacted fracture involving the base of the fifth digit proximal phalanx. No definitive intra-articular extension. Regional soft tissue swelling. Fracture lines are less distinct, suggesting some mild interval bridging callus formation.
== END 2023-11-05 09:47 | disposition home or self-care (01) ==
LOC: HO.HOSX 09:46
PROVIDERS: Visit Provider Orthopaedic Surgery
DX: M79.641 Pain in right hand (principal)
CPT/HCPCS: 73130

== ENCOUNTER 2023-11-05 12:25 | Outpatient (AMB) | payer OTHER, SELFPAY ==
--- NOTE | 2023-11-05 12:39 | A.OFFVIS_ITS ---
Vital Signs 11/05/23 12:49 Height 5 ft 3 in Weight 216 lb BMI 38.3 Intake Visit Reasons: FC-RT small digit fx w/ potential extensor tendon Intake Note: Bautista is a 33 year old right hand dominant male who presents today for fracture care on right small digit with potential extensor tendon. Patient reports he lost his footing causing him to trip and fall, attempting to block his face with his right hand he hit his hand on the curb. He presented to [facility] a couple of days later due to swelling and not able to move his finger. Patient was placed into an ulnar gutter splint with the fingers held in extension with mild radial deviation on 11/01/23 by TM. He continues to have pain and discomfort in his SF with a slight tingling sensation at the tip of his small finger. Allergies levofloxacin [From Levaquin] Adverse Reaction (Verified 11/05/23 12:52) Swelling, drooling quetiapine [From Seroquel] Adverse Reaction (Verified 11/05/23 12:52) Swelling HPI HPI FC-RT small digit fx w/ potential extensor tendon: Details: Bautista is a 33 year old right hand dominant Diabetic man who presents for a right small finger fracture, DOI: 10/30/23. He says he tripped and fell, landing on his right hand which he used to protect his face. He was seen in the ED on 11/01/23 for pain & stiffness, and was fitted for an ulnar gutter splint. He presents today complaining of some pain & discomfort in his small finger, and tingling to the tip of his small finger. His most recent HgA1c was 11.9% on 07/24/23. He says he has been working hard to improve his Diabetes and overall health in the last 3 months. He now has an insulin pump & a says his daily sugars are much lower and better controlled. He smokes Marijuana occasionally. 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 He says he has dogs and drives a stick shift, which he is worried will be difficult. He is concerned there will not be light duty for him at work. [facility]LY [facility], [facility] Medical History Uncontrolled type 2 diabetes mellitus with hyperglycemia Uncontrolled type 1 diabetes mellitus with hyperglycemia, without long-term current use of insulin Surgical History History of lung surgery Family History Mother Arthritis Other Family history of diabetes mellitus Social History (Updated 11/05/23 @ 12:48 by MONI Montes) Alcohol intake: current Alcohol intake frequency: a few times a week Patient Tobacco Use Status: Never used Tobacco Substance Use Type: Marijuana Current occupational status: employed Current occupation: [employer] [facility] [facility] [place], right hand dominant Review of Systems Const All systems reviewed & are unremarkable except as noted in HPI and below Physical Exam Vital Signs: BMI result Body Mass Index 38.3 Const General: cooperative, healthy appearing and no acute distress Orientation/consciousness: patient oriented x3 HEENT Head: Yes normocephalic and Yes atraumatic Eyes EOM: EOMs intact bilaterally Resp Effort & Inspection: normal respiratory effort and able to speak in complete sentences Cardio Jugular venous distension: no JVD Skin General skin exam: turgor normal Rashes: no rashes Neuro General: patient oriented x3 Extrem Other: Evaluation of Right Upper Extremity: The patient is alert, oriented, and in no acute distress Neuro: Median, Ulnar, Radial nerves motor and sensory intact and sensation is normal to the tips of all digits Vascular: Cap refill brisk ROM: He can bring his fingers closed to a weak fist. When extending his digits, he went into some hyper extension extension at the small finger fracture site and had an ~30-40 degree extensor lag at the PIP joint When bringing the MCP joint into flexion, this reduced the PIP joint to an ~10 degree extensor lag Mild ABduction of the small finger, he could actively ADduct No clinical mal-rotation He has a clinical apex volar angular deformity at the small finger base of the proximal phalanx fracture site Radiographs: 3 views of the right hand, with attention to the small finger, were taken and viewed by me today in clinic. They show a small finger proximal phalanx base fracture, with ~23 degrees+ apex volar angulation and slight apex radial angulation Psych Appearance: grossly normal Affect: normal affect Attitude: cooperative Assessment & Plan Assessment & Plan (1) Fracture of proximal phalanx of digit of right hand: Comment: R SF Code(s): S62.619A - Displaced fracture of proximal phalanx of unspecified finger, initial encounter for closed fracture Category: Medical Qualifiers: Encounter type: initial encounter Fracture type: closed Qualified Code(s): S62.619A - Displaced fracture of proximal phalanx of unspecified finger, initial encounter for closed fracture (2) Uncontrolled type 2 diabetes mellitus with hyperglycemia: Code(s): E11.65 - Type 2 diabetes mellitus with hyperglycemia Category: Medical Plan Assessment & Plan: 1. Right small finger proximal phalanx base fracture DOI: 10/30/23 Good FDS & FDP tendon function I educated him about this condition I discussed operative and non-operative treatment options The patient would like to proceed with surgery His ring & small fingers were rober-taped today. The risks and benefits of operative treatment were discussed with the patient and the patient wishes to proceed with surgery. These risks include, but are not limited to risk of damage to blood vessels, nerves, tendons, infection, recurrence, incomplete relief of preoperative symptoms, persistent pain, possible need for further surgery and the risks associated with regional blocks and anesthesia. The plan is to take the patient to the operating room sometime on either 11/07/23 or 11/11/23 for the following procedures: 1. Left small finger CRPP, under general All of the preoperative paperwork including the consent was reviewed today. All the patient's questions were answered. The patient understands that they will be contacted by our field artillery cannoneer soon to schedule this procedure He denies blood thinners, asthma, heart, lung, kidney issues He is a Diabetic, his most recent HgA1c was 11.9% on 07/24/23. He has been working on managing his Diabetes in the last few months and feels he has greatly improved since he began using an insulin pump I educated him about the effects of smoking on bone healing, and explained that he should quit smoking Marijuana for the next few weeks at least while he is healing. He expressed understanding. Scribed for Makayla Quintana MD by Blayne Gilliland, medical manager, on 11/05/23 at 1:05 PM, EST. Orders: Orders XR hand RT min 3V Today M79.641 - Pain in right hand Coding Level of Care Code Est Pt Level 4 (90214) Diagnoses Closed fracture of proximal phalanx of digit of right hand, initial encounter S62.619A Encounter type: initial encounter Fracture type: closed Uncontrolled type 2 diabetes mellitus with hyperglycemia E11.65
[2023-11-05 12:49] VITALS: BMI 38.3
== END 2023-11-05 13:26 | disposition home or self-care (01) ==
PROVIDERS: PCP Internal Medicine; Visit Provider Orthopaedic Surgery
DX: S62.616A Displaced fracture of proximal phalanx of right little finger, initial encounter for closed fracture (principal); E11.65 Type 2 diabetes mellitus with hyperglycemia
CPT/HCPCS: 99214

== ENCOUNTER 2023-11-11 08:58 | Day surgery (SDC) | payer OTHER, SELFPAY ==
[2023-11-11] VITALS (8 sets, daily range): BP systolic 89–116; BP diastolic 50–77; PULSE 57–89; RESP 16–18; TEMP 36.2–37.2; O2SAT 94–99; BMI 39.4
--- NOTE | ~2023-11-11 | FL_ITS ---
EXAMINATION: XR FLUOROSCOPY WITH IMAGES CLINICAL INFORMATION: Fracture right small finger. COMPARISON: Right hand radiographs 11/05/2023. TECHNIQUE: Fluoroscopy Supervised By: Dr. Makayla Quintana. Fluoroscopy Time: 21.92 seconds. Cumulative Dose: 0.4709 mGy. DAP: 0.0285 Gycm2. Images: 3. FINDINGS: Intraoperative fluoroscopy and spot films were performed during a procedure in the OR. 2 pins are seen through the fractured base of the fifth proximal phalanx. Please correlate with Dr. Makayla Quintana's report for complete details. FL/FL guidance in OR IMPRESSION: Intraoperative fluoroscopy and spot films were obtained. Please see Dr. Makayla Quintana's report for complete details.
[2023-11-11] MEDS: Lactated Ringers 1,000 ML 100 ML IVCONT (09:35)
[2023-11-11 09:39] LABS: Glucose, Whole Blood 141 mg/dL (60-115)
--- NOTE | 2023-11-11 10:30 | P.CONAN_ITS ---
Documented by User: Kayla Neal NP 11/07/23 11:53 HPI - Anesthesia Eval Consult details Narrative: 33yo M for Right Small Finger Closed Reduction Perc Pinning 08/2023 [place] [facility] [place] atypical [place]. Testing ok Anesthesia Pre-Procedure Meds Is the patient on any of the following meds?: GLP1/DPP4 PMFSH Active Problems Active Problems: All Active Problems Fracture of proximal phalanx of digit of right hand (Acute) Atypical chest pain (Acute) Uncontrolled type 2 diabetes mellitus with hyperglycemia (Acute) Uncontrolled type 1 diabetes mellitus with hyperglycemia, without long-term current use of insulin (Acute) Past Medical History Medical History Uncontrolled type 2 diabetes mellitus with hyperglycemia Uncontrolled type 1 diabetes mellitus with hyperglycemia, without long-term current use of insulin Family History Family History Mother Arthritis Other Family history of diabetes mellitus Surgical History Surgical History History of lung surgery Social History Social History (Updated 11/05/23 @ 12:48 by MONI Montes) Alcohol intake: current Alcohol intake frequency: does not drink Patient Tobacco Use Status: Never used Tobacco Second Hand Smoke Exposure: No Use of substances other than those prescribed or required for medical reasons: Yes Substance Use Type: Marijuana Substance Use Frequency: Daily Are you DNR?: No Advance Directives: No Advance Directives Information Provided: Yes Advance Directives on File: No Current occupational status: employed Current occupation: [employer] [place] right hand dominant Meds Allergies Allergy/AdvReac Type Severity Reaction Status Date / Time levofloxacin [From Levaquin] AdvReac Swelling, Verified 11/05/23 12:52 drooling quetiapine [From Seroquel] AdvReac Swelling Verified 11/05/23 12:52 Home Medications ?Medication ?Instructions ?Recorded ?Confirmed ?Last Taken ?Type alcohol swabs (Alcohol Prep Pads) pad topical 10/05/21 09/04/23 Unknown History insulin lispro 100 unit/mL 6 - 16 unit subcut TID 10/05/21 09/04/23 Unknown History subcutaneous pen (Humalog KwikPen (U-100) Insulin) pen needle, diabetic 31 gauge x #50 ea 10/05/21 05/02/22 Unknown History 08/02 (BD Ultra-Fine Mini Pen Needle) blood sugar diagnostic (FreeStyle #10 ea 05/02/22 05/02/22 Unknown History Lite Strips) lancets 28 gauge (FreeStyle #100 ea 05/02/22 05/02/22 Unknown History Lancets) pen needle, diabetic 32 gauge x #50 ea 05/02/22 05/02/22 Unknown History (BD Stephanie 2nd Gen Pen Needle) atorvastatin 40 mg tablet 40 mg PO DAILY 07/24/23 09/04/23 Unknown History losartan 50 mg tablet 50 mg PO DAILY 07/24/23 09/04/23 Unknown History dulaglutide 1.5 mg/0.5 mL 1.5 mg subcut QWEEK 09/04/23 09/04/23 Unknown History subcutaneous pen injector (Trulicity) Exam Pertinent Lab Results Pertinent Lab Results: A1C 07/2022 = 11.9 Narrative Narrative: EKG 08/2023 normal sinus rhythm with inferior Q-waves ECHO 08/2023 Conclusions: - 1. Technically limited study 2. Normal LV ejection fraction 55-60% next 3. Cardiac valvular Dopplers within normal limits Exercise Stress 08/2023 Protocol: YURIY Max HR: 160 BPM 85% of Pred: 187 BPM Max BP: 150/080 mmHG Max Work Load: 9.9 METS Exercise stress test exercise 7 min 55 sec of Yuriy protocol achieving 85% MPHR, with mild SOB, without chest discomfort, without arrhythmias, with normotensive resposne to exercise, without EKG changes. Breathing resolved with rest. Test reviewed with Dr. Nava Assessment and Plan Assessment Anesthesia Assessment: Chart Reviewed Documented by User: Chelle Cortés DO 11/11/23 10:34 [facility]LY [facility] Past Medical History Medical History Uncontrolled type 2 diabetes mellitus with hyperglycemia Uncontrolled type 1 diabetes mellitus with hyperglycemia, without long-term current use of insulin Family History Family History Mother Arthritis Other Family history of diabetes mellitus Family history of problems with anesthesia: No Surgical History Surgical History History of lung surgery History of Problems with Anesthesia: No Social History Social History (Updated 11/05/23 @ 12:48 by MONI Montes) Alcohol intake: current Alcohol intake frequency: does not drink Patient Tobacco Use Status: Never used Tobacco Second Hand Smoke Exposure: No Use of substances other than those prescribed or required for medical reasons: Yes Substance Use Type: Marijuana Substance Use Frequency: Daily Are you DNR?: No Advance Directives: No Advance Directives Information Provided: Yes Advance Directives on File: No Current occupational status: employed Current occupation: [employer], right hand dominant Meds Allergies Allergy/AdvReac Type Severity Reaction Status Date / Time levofloxacin [From Levaquin] AdvReac Swelling, Verified 11/05/23 12:52 drooling quetiapine [From Seroquel] AdvReac Swelling Verified 11/05/23 12:52 Home Medications ?Medication ?Instructions ?Recorded ?Confirmed ?Last Taken ?Type alcohol swabs (Alcohol Prep Pads) pad topical 10/05/21 09/04/23 Unknown History insulin lispro 100 unit/mL 6 - 16 unit subcut TID 10/05/21 09/04/23 Unknown History subcutaneous pen (Humalog KwikPen (U-100) Insulin) pen needle, diabetic 31 gauge x #50 ea 10/05/21 05/02/22 Unknown History 3 (BD Ultra-Fine Mini Pen Needle) blood sugar diagnostic (FreeStyle #10 ea 05/02/22 05/02/22 Unknown History Lite Strips) lancets 28 gauge (FreeStyle #100 ea 05/02/22 05/02/22 Unknown History Lancets) pen needle, diabetic 32 gauge x #50 ea 05/02/22 05/02/22 Unknown History (BD Stephanie 2nd Gen Pen Needle) atorvastatin 40 mg tablet 40 mg PO DAILY 07/24/23 09/04/23 Unknown History losartan 50 mg tablet 50 mg PO DAILY 07/24/23 09/04/23 Unknown History dulaglutide 1.5 mg/0.5 mL 1.5 mg subcut QWEEK 09/04/23 09/04/23 Unknown History subcutaneous pen injector (Trulicity) Exam Exam Date and Time: November 11, 2023 1030 Height,Weight and Vital Signs: Height 5 ft 3 in Weight 100.868 kg Vital Signs Temperature 98.9 F 11/11/23 09:35 Pulse Rate 89 11/11/23 09:35 Respiratory Rate 16 11/11/23 09:35 Blood Pressure 112/76 11/11/23 09:35 Pulse Oximetry 96 11/11/23 09:35 Oxygen Delivery Method Room Air 11/11/23 09:35 Temperature 98.9 F 11/11/23 09:35 Pulse Rate 89 11/11/23 09:35 Respiratory Rate 16 11/11/23 09:35 Blood Pressure 112/76 11/11/23 09:35 Pulse Oximetry 96 11/11/23 09:35 Oxygen Delivery Method Room Air 11/11/23 09:35 Airway Mallampati Class: III TM Dist: >3cm Neck ROM: Full Loose/Missing/Broken Teeth: No (patient denies any loose or broken teeth) Heart: S1S2 Lungs: CTAB Assessment and Plan Assessment Anesthesia Assessment: Anesthesia Plan Discussed and Chart Reviewed Final Anesthetic Review Family History of Problems with Anesthesia: No History of Problems with Anesthesia: No NPO: Yes ASA Class: III Final Preanesthetic Review: No Changes in Pt Med Stat, Meds/Allgs Chart Reviewed, Consent Obtained/Reviewed and Anes Risks/Benef Reviewed Patient Risk: Intermediate Procedure Risk: Low Anesthetic Plan Anesthetic Plan: GA and Agree w/ Assess. and Plan Disposition: Standard PACU
--- NOTE | 2023-11-11 11:12 | MHC.SHP ---
Pre-Procedural Eval Section A - 24 Hr Update-Section A only Date of Service: 11/11/23 The patient is an INPATIENT: No Changes since office visit: No Cold of Flu in the past 2 weeks, No New Medical Problems, No Changes in Medication and No Patient answered all questions The patient has been examined within 24 hours of the surgical procedure. The History & Physical has been completed within 30 days and I have reviewed it.: Yes Section B - Complete if H&P > 30 days Chief Complaint: Displaced fracture of proximal phalanx of unspecif Allergies: Allergies Allergy/AdvReac Type Severity Reaction Status Date / Time levofloxacin [From Levaquin] AdvReac Swelling, Verified 11/05/23 12:52 drooling quetiapine [From Seroquel] AdvReac Swelling Verified 11/05/23 12:52 Plan I have reviewed the history and physical and performed a pertinent physical examination on my patient. No changes have occurred unless specified. Time Spent With Patient Time: Total time managing care of this patient today ____ minutes.
--- NOTE | 2023-11-11 11:13 | W.PM.OPN ---
Operative Note Operative Note Date of Service: 11/11/23 Narrative: Operative Note Narrative: Preop diagnosis: 1. Right small finger proximal phalanx base fracture Postop diagnosis: Same Procedure: 1. Right small finger proximal phalanx fracture closed reduction percutaneous pinning 2. Ulnar nerve block Surgeon: Makayla Quintana MD Anesthesia: General Anesthesia Findings: finger fracture Implants: 0.045 K-wires times 2 Tourniquet time: None EBL: Minimal Specimen: None Drains: None Complications: None Disposition: Brought to the recovery room in stable condition Plan: Follow-up in 10-14 days for a wound check, postop radiographs and for placement in a short-arm finger spica cast Anticipate K-wire removal in 4 weeks based on interval bony healing Educate the patient that full fracture healing anticipated in approximately 8-12 weeks. Indications: The patient is 33 years old with right small finger proximal phalanx base fracture . The risks and benefits of operative treatment, including but not limited to risk of damage to blood vessels, nerves, tendons, infection, recurrence, delayed or nonunion of fracture, persistent pain or numbness, incomplete resolution of preoperative symptoms, or need for further surgery were discussed with the patient and they wished to proceed with surgery. Procedure: Once consent was obtained patient was brought back to the operating suite and placed in the operating table in a supine position. . Perioperative antibiotics and general anesthesia was administered by the anesthesia team. A tourniquet was applied to the proximal aspect of the right upper extremity and the limb was prepped and draped in a standard surgical fashion. Tourniquet was not inflated during the case. The FluoroScan was used during the case to assist with our fracture reduction and placement of all implants. A closed reduction was performed on the patient's right small finger proximal phalanx base fracture. A 0.045 K-wire was placed through the ulnar base of the proximal phalanx. This was advanced across the fracture site and into the shaft. A 2nd 0.045 K-wire was placed through the radial base of the proximal phalanx and similarly advanced across the fracture site and into the shaft. Fracture alignment was assessed for both angular and rotational malalignment. Once satisfied with our fracture reduction and implant placement, the K-wires were bent and cut short and pin caps applied. Final fluoroscopic images were then obtained. The wounds were copiously irrigated with normal saline. An ulnar nerve block was then performed by infiltrating about the ulnar nerve at the wrist with some 1% lidocaine with epinephrine for postop pain control. A Sterile dressing and short volar splint extending to the forearm was applied. The patient appears to have tolerated the procedure well and with no complications. All digits were well vascularized at the conclusion of the case.
[2023-11-11] MEDS: oxyCODONE HCl Immed Release 5 MG TABLET PO (12:48)
== END 2023-11-11 13:22 | disposition home or self-care (01) ==
PROVIDERS: PCP Internal Medicine; Visit Provider Orthopaedic Surgery
PROC: (CPT 26727; principal; 2023-11-11 10:30)
DX: S62.616A Displaced fracture of proximal phalanx of right little finger, initial encounter for closed fracture (principal); W01.198A Fall on same level from slipping, tripping and stumbling with subsequent striking against other object, initial encounter; Y93.9 Activity, unspecified; Y92.410 Unspecified street and highway as the place of occurrence of the external cause; Y99.9 Unspecified external cause status; E10.65 Type 1 diabetes mellitus with hyperglycemia; Z79.4 Long term (current) use of insulin; Z79.85 Long-term (current) use of injectable non-insulin antidiabetic drugs; R07.89 Other chest pain; Z79.899 Other long term (current) drug therapy; Z96.41 Presence of insulin pump (external) (internal); Z88.1 Allergy status to other antibiotic agents; Z88.8 Allergy status to other drugs, medicaments and biological substances
CPT/HCPCS: 26727; 82947; J0131; J0690; J1100; J2250; J2405; J2704; J2795; J3010

== ENCOUNTER → 2023-11-11 08:58 | Outpatient (BNV) | payer OTHER, SELFPAY | PROVIDERS: PCP Internal Medicine; Visit Provider Orthopaedic Surgery | DX: S62.616A Displaced fracture of proximal phalanx of right little finger, initial encounter for closed fracture (principal) | CPT/HCPCS: 26727 ==

== ENCOUNTER 2023-11-26 10:16 | Outpatient (AMB) | payer OTHER, SELFPAY ==
--- NOTE | 2023-11-26 10:21 | MHC.OFFVIS ---
Vital Signs 11/26/23 10:33 Height 5 ft 3 in Weight 216 lb BMI 38.3 Handedness Right Intake Visit Reasons: PO-Rt SF CRPP 11/11/23 Intake Note: Bautista is a 33 year old right hand dominant male who presents today post operatively s/p Right Small Finger CRPP 11/11/23. Patient reports on and off pain since last visit. He states he had dull radiating pain when he had to flatten his hand for his x-rays today. The oxycodone did provide him with relief when his pain came on. Hx of DM. Allergies levofloxacin [From Levaquin] Adverse Reaction (Verified 11/26/23 10:36) Swelling, drooling quetiapine [From Seroquel] Adverse Reaction (Verified 11/26/23 10:36) Swelling HPI HPI PO-Rt SF CRPP 11/11/23: Details: Bautista is a 33 year old right hand dominant Diabetic man who returns S/P right small finger proximal phalanx CRPP, DOS: 11/11/23. He says he tripped and fell, landing on his right hand which he used to protect his face, DOI: 10/30/23. He reports having an increase of pain when placing his hand flat for X-rays today. He says the tingling in his small finger has not improved, he also feels his ring finger sensation is not normal either when compared to his index or middle fingers. His most recent HgA1c was 11.9% on 07/24/23. He says he has been working hard to improve his Diabetes and overall health in the last 3 months. He now has an insulin pump & a says his daily sugars are much lower and better controlled. He smokes Marijuana occasionally. 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 He says he has dogs and drives a stick shift, which he is worried will be difficult. He is concerned there will not be light duty for him at work. PENDING SALE TO [facility] Medical History Uncontrolled type 2 diabetes mellitus with hyperglycemia Uncontrolled type 1 diabetes mellitus with hyperglycemia, without long-term current use of insulin Surgical History History of lung surgery Family History Mother Arthritis Other Family history of diabetes mellitus Social History Alcohol intake: current Alcohol intake frequency: does not drink Patient Tobacco Use Status: Never used Tobacco Second Hand Smoke Exposure: No Substance Use Type: Marijuana Current occupational status: employed Current occupation: [employer], right hand dominant Review of Systems Const All systems reviewed & are unremarkable except as noted in HPI and below Physical Exam Vital Signs: BMI result Body Mass Index 38.3 Const General: no acute distress and alert Orientation/consciousness: patient oriented x3 Neuro General: patient oriented x3 Extrem Other: The patient was alert oriented and in no acute distress The pin-sites are healing well with no erythema drainage or evidence of infection. Fracture site not particularly tender today. Sensation is intact Cap refill is brisk Radiographs: 3 views of the right hand, with attention to the small finger, were taken and viewed by me today in clinic. They show a small finger proximal phalanx fracture with satisfactory fracture alignment and position of all K-wires. Psych Appearance: grossly normal Affect: normal affect Attitude: cooperative Assessment & Plan Assessment & Plan (1) Fracture of proximal phalanx of digit of right hand: Comment: R Code(s): S62.619A - Displaced fracture of proximal phalanx of unspecified finger, initial encounter for closed fracture Category: Medical Qualifiers: Encounter type: initial encounter Fracture type: closed Qualified Code(s): S62.619A - Displaced fracture of proximal phalanx of unspecified finger, initial encounter for closed fracture (2) Uncontrolled type 2 diabetes mellitus with hyperglycemia: Code(s): E11.65 - Type 2 diabetes mellitus with hyperglycemia Category: Medical Plan Assessment & Plan: 1. Right small finger proximal phalanx base fracture, S/P CRPP DOI: 10/30/23 DOS: 11/11/23 Good FDS & FDP tendon function The patient appears to be doing well post-operatively I educated him about the post-operative course & pin-site care He was placed in a short arm finger spica cast, to be worn for the next 2 weeks I explained the signs and symptoms of infection, if the patient develops any new or worsening erythema, drainage, pain, or warmth they should contact the clinic or attend the ED. I discussed activity modifications, he is to lift nothing heavier than a cellphone for the next 3 weeks I educated him about the effects of smoking on bone healing, and explained that he should quit smoking Marijuana for the next few weeks at least while he is healing. He expressed understanding. 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 He says he is on FMLA and does not need a work note at this time. We also encouraged him to continue to work on maintaining better control of his diabetes. He will follow up in 2 weeks, with X-rays 3V attn R SF. Anticipate K-wire removal depending on healing. Scribed for Makayla Quintana MD by Blayne Gilliland, internist medical doctor md, on 11/26/23 at 10:55 AM EST. Orders: Orders XR hand RT min 3V Today M79.641 - Pain in right hand Scribe Plan - Not visible on output: Scribed for Makayla Quintana MD by Blayne Gilliland internist medical doctor md, on [ ] at [ ], EST. Coding Level of Care Code Global (98722) Diagnoses Closed fracture of proximal phalanx of digit of right hand, initial encounter S62.619A Encounter type: initial encounter Fracture type: closed Uncontrolled type 2 diabetes mellitus with hyperglycemia E11.65
[2023-11-26 10:33] VITALS: BMI 38.3
== END 2023-11-26 12:12 | disposition home or self-care (01) ==
PROVIDERS: PCP Internal Medicine; Visit Provider Orthopaedic Surgery
DX: S62.619A Displaced fracture of proximal phalanx of unspecified finger, initial encounter for closed fracture (principal); E11.65 Type 2 diabetes mellitus with hyperglycemia
CPT/HCPCS: 99024

== ENCOUNTER 2023-11-26 11:30 | Outpatient (REF) | payer OTHER, SELFPAY ==
--- NOTE | ~2023-11-26 | XR_ITS ---
EXAMINATION: XR HAND, RIGHT CLINICAL INFORMATION: Pain in right hand. COMPARISON: 11/11/2023 fluoroscopy images, 11/05/2023 and 11/01/2023 radiographs. TECHNIQUE: PA, lateral, and oblique views of the right hand. FINDINGS: Two (2) pins span previously noted fracture at the base of the fifth proximal phalanx. Hardware appears intact. Fracture lines are less distinct suggesting some interval bridging callus formation. Ulnar minus variance. XR/XR hand RT min 3V IMPRESSION: Two (2) pins span previously noted fracture at the base of the fifth proximal phalanx. Hardware appears intact. Fracture lines are less distinct suggesting some interval bridging callus formation.
== END 2023-11-26 11:31 | disposition home or self-care (01) ==
LOC: HO.HOSX 11:30
PROVIDERS: Visit Provider Orthopaedic Surgery
DX: M79.641 Pain in right hand (principal)
CPT/HCPCS: 73130

== ENCOUNTER 2023-11-27 08:23 | Outpatient (AMB) | payer OTHER, SELFPAY ==
[2023-11-27 08:26] VITALS: BP 120/74; PULSE 86; BMI 39.4
--- NOTE | 2023-11-27 08:26 | A.OFFVIS_ITS ---
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 Accompanied by: Self / Same As Patient Allergies levofloxacin [From Levaquin] Adverse Reaction (Verified 11/27/23 08:27) Swelling, drooling quetiapine [From Seroquel] Adverse Reaction (Verified 11/27/23 08:27) Swelling Medication List - Last Reconciled 11/27/23 by Kate Hdez MD acetone (urine) test (Ketostix strips) As directed alcohol swabs (Alcohol Prep Pads) pad topical atorvastatin 40 mg PO DAILY blood sugar diagnostic (FreeStyle Lite Strips) As directed 3 times a day blood-glucose sensor (Dexcom G7 Sensor device) As directed change every 10 days glucagon 3 mg/actuation (Baqsimi) 3 mg intranasal ONCE insulin infusion set-cartridge (iLET Infusion Kit-Inset 23 combo pack) As directed insulin lispro (Humalog U-100 Insulin) infuse up to 80 units via insulin pump subcutaneously 3 times a day; lancets (FreeStyle Lancets) As directed 3 times a day losartan 50 mg PO DAILY pen needle, diabetic (BD Ultra-Fine Mini Pen Needle) As directed pen needle, diabetic (BD Stephanie 2nd Gen Pen Needle) As directed subcutaneous insulin pump (iLet Insulin Pump) As directed HPI Comments Details: The patient is a 33 year old male with a past medical history of type 2 diabetes presenting for follow up. Diagnosed in 2021 in DKA Since his last MD visit he has initiated the iLet pump and the results have been remarkable. 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 Current regimen: humalog via iLET pump. On ARB, statin. Previously on short and long acting insulin preparations. Tried Mounjaro - had GI side effects. Stopped trulicity. POC A1C today 6.8%. Dexcom downloaded today and reviewed GMI 6.7% with avg glucose 141 with SD 31, target range 9%, high 1%, very high <1%, 0%low No known microvascular, macrovascular complications. (-)alb/cr, LDL<100 Notes UTD eye exam Labs: Anti-LOREN 65 Ab were negative. C-peptide response was adequate ROS CONSTITUTIONAL: Denies weight loss, fever and chills. HEENT: Denies changes in vision and hearing. RESPIRATORY: Denies SOB and cough. CV: Denies palpitations and CP GI: Denies abdominal pain, nausea, vomiting and diarrhea. : Denies dysuria and urinary frequency. MSK: Denies new myalgia and joint pain. SKIN: Denies rash and pruritus. NEUROLOGICAL: Denies headache PSYCHIATRIC: Denies recent changes in mood. PHYSICAL EXAM: GENERAL: Alert and oriented x 3. NAD EYES: EOMI. Anicteric. HENT: Moist mucous membranes. No scleral icterus. No cervical lymphadenopathy. LUNGS: Clear to auscultation bilaterally. CARDIOVASCULAR: Regular rate and rhythm. No murmur. No JVD. ABDOMEN: Soft, non-tender +bs EXTREMITIES: No edema. Non-tender. SKIN: No rashes or lesions. Warm. NEUROLOGIC: No focal neurological deficits. CN II-XII grossly intact. Normal monofilament. Normal vibratory exam. +DP pulses bilaterally PSYCHIATRIC: Cooperative. Appropriate mood and affect [facility] Medical History Uncontrolled type 2 diabetes mellitus with hyperglycemia Uncontrolled type 1 diabetes mellitus with hyperglycemia, without long-term current use of insulin Surgical History History of lung surgery Family History Mother Arthritis Other Family history of diabetes mellitus Social History Alcohol intake: current Alcohol intake frequency: does not drink Patient Tobacco Use Status: Never used Tobacco Second Hand Smoke Exposure: No Substance Use Type: Marijuana Current occupational status: employed Current occupation: [employer] [place] [place], right hand dominant Physical Exam Vital Signs: Last Vital Signs Pulse 86 11/27/23 08:26 BP 120/74 11/27/23 08:26 BMI result Body Mass Index 39.4 Results AMB Hemoglobin A1c AMB Hemoglobin A1c 6.8 % Last Edit by MONI Sy on 11/27/23 08:47 Results Reviewed Results Reviewed: Laboratory Last Values Glucose (Clinic) 144 mg/dL (60-115) H 11/27/23 08:35 Assessment & Plan Assessment & Plan (1) Controlled type 2 diabetes mellitus: Code(s): E11.9 - Type 2 diabetes mellitus without complications Category: Medical Qualifiers: Diabetes mellitus half-way insulin use: with half-way use Diabetes mellitus complication status: without complication Qualified Code(s): E11.9 - Type 2 diabetes mellitus without complications; Z79.4 - [facility] (current) use of insulin (2) Long-term insulin use: Code(s): 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 Due for lipids, urine and A1C prior to next visit. These are ordered. 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
[2023-11-27 08:39] LABS: Glucose, Whole Blood 144 mg/dL (60-115)
== END 2023-11-27 08:57 | disposition home or self-care (01) ==
PROVIDERS: PCP Internal Medicine; Visit Provider Internal Medicine
DX: E11.9 Type 2 diabetes mellitus without complications (principal); Z79.4 Long term (current) use of insulin
CPT/HCPCS: 99215

== ENCOUNTER → 2023-11-27 08:23 | Outpatient (BNVA) | payer OTHER, SELFPAY | PROVIDERS: PCP Internal Medicine; Visit Provider Internal Medicine | DX: E11.9 Type 2 diabetes mellitus without complications (principal); Z79.4 Long term (current) use of insulin | CPT/HCPCS: 82947; 83036 ==

== ENCOUNTER 2023-11-29 13:14 | Outpatient (REF) | payer OTHER, SELFPAY ==
--- NOTE | ~2023-11-29 | XR_ITS ---
EXAMINATION: XR HAND, RIGHT CLINICAL INFORMATION: Pain right hand. COMPARISON: 11/26/2023, 11/11/2023 fluoroscopy images, 11/05/2023 and 11/01/2023 radiographs. TECHNIQUE: PA, lateral, and oblique views of the right hand. FINDINGS: Two (2) pins redemonstrated spanning previously noted fracture at the base of the fifth digit proximal phalanx. Hardware appears intact. Alignment maintained. Ulnar minus variance. XR/XR hand RT min 3V IMPRESSION: Status post ORIF fifth digit proximal phalanx fracture.
== END 2023-11-29 13:15 | disposition home or self-care (01) ==
LOC: HO.HOSX 13:14
PROVIDERS: PCP Internal Medicine
DX: S62.606D Fracture of unspecified phalanx of right little finger, subsequent encounter for fracture with routine healing (principal)
CPT/HCPCS: 73130

== ENCOUNTER 2023-11-29 13:14 | Outpatient (AMB) | payer OTHER, SELFPAY ==
--- NOTE | 2023-11-29 13:19 | A.OFFVIS_ITS ---
Intake Visit Reasons: PO- Cast evaluation Rt SF CRPP 11/11/23 Intake Note: Bautista is a 33 year old male who presents today for a cast evaluation s/p Right Small Finger CRPP 11/11/23 w/ AR. Patient reports he went to sleep and woke up the today and feels like his cast shifted and moved up on his arm/hand. Says he feels pressure around his pins when he moves his hand certain ways. Allergies levofloxacin [From Levaquin] Adverse Reaction (Verified 11/29/23 13:21) Swelling, drooling quetiapine [From Seroquel] Adverse Reaction (Verified 11/29/23 13:21) Swelling HPI HPI PO- Cast evaluation Rt SF CRPP 11/11/23: Details: Patient is a 33-year-old male who presents for cast change and evaluation status post right small finger CRPP with Dr. Quintana, DOS 11/11/2023. Patient reports that he woke up this morning and he felt his cast had shifted distally. Patient reports that he was working in the yard for his grandmother, and feels that he may have gotten sweaty year than he should have, and feels that this is likely what caused the cast shifting overnight. The patient also expresses concern that the cast shifting may have moved his pins, so he would like evaluation that as well. Patient reports no pain or other associated symptoms, but that the diminished sensation in his small finger he has been experiencing since prior to surgery has remained. [facility] Medical History Uncontrolled type 2 diabetes mellitus with hyperglycemia Uncontrolled type 1 diabetes mellitus with hyperglycemia, without long-term current use of insulin Surgical History History of lung surgery Family History Mother Arthritis Other Family history of diabetes mellitus Social History Alcohol intake: current Alcohol intake frequency: does not drink Patient Tobacco Use Status: Never used Tobacco Second Hand Smoke Exposure: No Substance Use Type: Marijuana Current occupational status: employed Current occupation: [employer], right hand dominant Physical Exam Extrem Other: R Hand Exam Pins in place, no evidence of shifting No evidence of infection Patient reports no pain at this time Dressing in place Results Reviewed Results Reviewed: X-rays obtained in the office today and independently reviewed by me, Felix Chahal PA-C, demonstrate well approximated fracture of the proximal phalanx of the right small finger, with pins in place, unchanged from previous post fitzpatrick rgical x-rays. Assessment & Plan Assessment & Plan (1) Fracture of proximal phalanx of digit of right hand: Comment: R Code(s): S62.619A - Displaced fracture of proximal phalanx of unspecified finger, initial encounter for closed fracture Category: Medical Qualifiers: Encounter type: initial encounter Fracture type: closed Qualified Code(s): S62.619A - Displaced fracture of proximal phalanx of unspecified finger, initial encounter for closed fracture Plan 1. Proximal phalanx fracture of right small finger Patient is recovering well postoperatively Patient is educated about the typical postoperative course Cast changed today Pain still in satisfactory clinical placement, unchanged from previous x-rays Patient will follow-up with me for previously scheduled postop appointment, sooner with any acute concerns Orders: Orders XR hand RT min 3V Today M79.641 - Pain in right hand Coding Level of Care Code Global (78972) Diagnoses Closed fracture of proximal phalanx of digit of right hand, initial encounter S62.619A Encounter type: initial encounter Fracture type: closed
== END 2023-11-29 14:34 | disposition home or self-care (01) ==
PROVIDERS: PCP Internal Medicine
DX: S62.619A Displaced fracture of proximal phalanx of unspecified finger, initial encounter for closed fracture (principal)
CPT/HCPCS: 99024

== ENCOUNTER 2023-12-11 09:52 | Outpatient (REF) | payer OTHER, SELFPAY ==
--- NOTE | ~2023-12-11 | XR_ITS ---
EXAMINATION: XR HAND, RIGHT CLINICAL INFORMATION: Pain in the right hand COMPARISON: Multiple prior x-rays most recent 11/29/2023 TECHNIQUE: PA, lateral, and oblique views of the right hand. FINDINGS: [address] wires remain in place longitudinally extending through the previously noted fracture of the proximal portion of the fifth proximal phalanx. The fracture remains visible but unchanged in alignment. The remaining bones joints and soft tissues unremarkable. XR/XR hand RT min 3V IMPRESSION: Stable postsurgical changes of the proximal fifth metacarpal as above
== END 2023-12-11 09:53 | disposition home or self-care (01) ==
LOC: HO.HOSX 09:52
DX: M79.641 Pain in right hand (principal)
CPT/HCPCS: 73130

== ENCOUNTER 2023-12-11 11:06 | Outpatient (AMB) | payer OTHER, SELFPAY ==
--- NOTE | 2023-12-11 11:33 | MHC.OFFVIS ---
Vital Signs 12/11/23 11:39 Height 5 ft 3 in Weight 222 lb BMI 39.3 Handedness Right Intake Visit Reasons: PO-Rt SF CRPP 11/11/23-w/Xrays cast off Intake Note: Bautista is a 33 year old male who presents today for a cast evaluation s/p Right Small Finger CRPP 11/11/23 w/ AR. Patient reports he is doing well. No pain or discomfort at the moment. He states when he was outside he could feel his sweat go into the pins so he turned on his AC. Allergies levofloxacin [From Levaquin] Adverse Reaction (Verified 12/11/23 11:38) Swelling, drooling quetiapine [From Seroquel] Adverse Reaction (Verified 12/11/23 11:38) Swelling HPI HPI PO-Rt SF CRPP 11/11/23-w/Xrays cast off: Details: Patient is a 33-year-old male who presents for 1 month postop evaluation of minimally displaced fracture of proximal phalanx of right small finger, status post CRPP with Dr. Quintana, DOS 11/11/2023. Today, the patient reports that he is feeling well, and has no acute complaints or concerns. Patient reports that the sensation in the right small finger, diminished at last visit, has begun to return. Patient reports no pain at this time. Patient does report that his fingers have become stiff, although he attributes this to the pins. [facility] Medical History Uncontrolled type 2 diabetes mellitus with hyperglycemia Uncontrolled type 1 diabetes mellitus with hyperglycemia, without long-term current use of insulin Surgical History History of lung surgery Family History Mother Arthritis Other Family history of diabetes mellitus Social History Alcohol intake: current Alcohol intake frequency: does not drink Patient Tobacco Use Status: Never used Tobacco Second Hand Smoke Exposure: No Substance Use Type: Marijuana Current occupational status: employed Current occupation: [employer], right hand dominant Review of Systems Const All systems reviewed & are unremarkable except as noted in HPI and below Physical Exam Vital Signs: BMI result Body Mass Index 39.3 Extrem Other: Patient is alert, oriented, and in no acute distress. Neuro: Median, ulnar, radial nerves motor and sensory intact and sensation is normal to the tips of all digits. Vascular: Cap refill brisk Pain: Patient reports no tenderness to palpation at this time. ROM: Patient has limited range of motion of the ring and small fingers of the right hand, likely secondary to cast and pins Skin: No evidence of drainage or infection about the pin sites General: No ecchymosis, erythema, or evidence of infection. Psych: Appears grossly normal Affect normal Attitude cooperative Results Reviewed Results Reviewed: X-rays obtained in the office today and independently reviewed by me, Felix Chahal PA-C, demonstrate minimally displaced fracture of the proximal phalanx of the right small finger, with evidence of interval bony healing. Pins in place. Assessment & Plan Assessment & Plan (1) Fracture of proximal phalanx of digit of right hand: Comment: R SF Code(s): S62.619A - Displaced fracture of proximal phalanx of unspecified finger, initial encounter for closed fracture Category: Medical Qualifiers: Encounter type: initial encounter Fracture type: closed Qualified Code(s): S62.619A - Displaced fracture of proximal phalanx of unspecified finger, initial encounter for closed fracture Plan 1. Right small finger proximal phalanx fracture, minimally displaced, status post CRPP DOS 11/11/2023 Patient is recovering well postoperatively Patient is educated about the typical recovery course Pins are removed at this time, antibiotic ointment and bandages applied Patient is educated to cover pin sites and avoid getting the pin sites wet until they close Patient is amenable to this plan Patient is taken out of the cast at this time Patient is to rober tape the small and ring fingers for the next 4 weeks Patient is also provided with a Velcro wrist splint to wear crowded areas or with public activities in order to remind himself and others that he has an injury to his hand, and to prevent any accidental worsening of his injury Patient inquires if he can return to work on a light duty basis starting next week Patient is given a note stating that he has a 2 lb weight restriction in his right hand, but can return to work in a light duty basis Patient is amenable to this Patient will follow-up in 4 weeks with repeat x-rays for reassessment, sooner with any acute concerns Orders: Orders XR hand RT min 3V Today M79.641 - Pain in right hand Coding Level of Care Code Global (29971) Diagnoses Closed fracture of proximal phalanx of digit of right hand, initial encounter S62.619A Encounter type: initial encounter Fracture type: closed
[2023-12-11 11:39] VITALS: BMI 39.3
== END 2023-12-11 12:07 | disposition home or self-care (01) ==
PROVIDERS: PCP Internal Medicine
DX: S62.619A Displaced fracture of proximal phalanx of unspecified finger, initial encounter for closed fracture (principal)
CPT/HCPCS: 99024

== ENCOUNTER 2023-12-19 13:29 | Outpatient (AMB) | payer OTHER, SELFPAY ==
--- NOTE | 2023-12-19 13:55 | MHC.OFFVIS ---
Vital Signs 12/19/23 13:56 Height 5 ft 3 in Weight 220 lb BMI 39.0 BP 118/68 Blood Pressure Location Lt brachial Position Sitting Pulse 78 Pulse Source Pulse Oximeter Intake Visit Reasons: follow up after testing Allergies levofloxacin [From Levaquin] Adverse Reaction (Verified 12/20/23 15:09) Swelling, drooling quetiapine [From Seroquel] Adverse Reaction (Verified 12/20/23 15:09) Swelling HPI Comments Details: 33[facility]. He had a stress test and echocardiogram performed. He reports he has had no chest pains, shortness of breath, palpitations, or orthopnea. He just got a glucose pump and has felt great since then. His blood sugar levels have improved. [facility], [facility] Medical History Uncontrolled type 2 diabetes mellitus with hyperglycemia Uncontrolled type 1 diabetes mellitus with hyperglycemia, without long-term current use of insulin Surgical History History of lung surgery Family History Mother Arthritis Other Family history of diabetes mellitus Social History Alcohol intake: current Alcohol intake frequency: does not drink Patient Tobacco Use Status: Never used Tobacco Second Hand Smoke Exposure: No Substance Use Type: Marijuana Current occupational status: employed Current occupation: [employer], right hand dominant Review of Systems Const Denies weakness ENT Denies dizziness Card Denies chest pain, Denies chest pain with activity, Denies syncope, Denies rapid heart rate, Denies pedal edema, Denies edema, Denies leg edema, Denies lightheadedness, Denies palpitations, Denies dyspnea, Denies dyspnea on exertion and Denies orthopnea Resp Denies cough, Denies dyspnea and Denies dyspnea on exertion GI Denies hematochezia and Denies change in stool character Musc Denies abnormal gait, Denies muscle cramps, Denies muscle weakness, Denies numbness, Denies radiating pain into limb and Denies tingling Neuro Denies abnormal gait, Denies dizziness, Denies syncope, Denies numbness, Denies tingling and Denies weakness Endo Denies palpitations Physical Exam Vital Signs: Last Vital Signs Pulse 78 12/19/23 13:56 BP 118/68 12/19/23 13:56 BMI result Body Mass Index 39.0 Const General: healthy appearing and no acute distress Orientation/consciousness: patient oriented x3 HEENT Head: Yes normal to inspection Eyes General: appearance normal, both eyes and all related structures Neck Neck: Yes normal visual inspection Chest Chest palpation & inspection: normal inspection of the chest Resp Effort & Inspection: normal respiratory effort Auscultation: clear to auscultation bilaterally Cardio Jugular venous distension: no JVD Palpation: normal PMI Rate: regular rate Rhythm: regular rhythm Heart sounds: S1 normal heart sound present, S2 normal heart sound present, no click, no gallops, no murmurs and no rubs GI Inspection: Yes normal to inspection Palpation (GI): Soft to palpation Skin General skin exam: no rashes or lesions noted Neuro General: patient oriented x3 Extrem General: Yes normal to inspection Psych Appearance: grossly normal Results Reviewed Results Reviewed: Protocol: USMAN Max HR: 160 BPM 85% of Pred: 187 BPM Max BP: 150/080 mmHG Max Work Load: 9.9 METS Exercise stress test exercise 7 min 55 sec of Usman protocol achieving 85% MPHR, with mild SOB, without chest discomfort, without arrhythmias, with normotensive resposne to exercise, without EKG changes. Breathing resolved with rest. Test reviewed with Dr. Nava Conclusions: - 1. Technically limited study 2. Normal LV ejection fraction 55-60% next 3. Cardiac valvular Dopplers within normal limits Assessment & Plan Assessment & Plan (1) Atypical chest pain: Code(s): R07.89 - Other chest pain Category: Medical Plan Atypical chest pains with no reoccurrence. Diabetes better controlled now on CGM which has improved his blood sugar greatly. A1C down to 6.8. Discussed the risk factors of uncontrolled diabetes to the cardiovascular system. Patient reports understanding. Weight loss and heart healthy diet encouraged. If any new symptoms occur patient can schedule an appointment for evaulation. ED care if needed. Coding Level of Care Code Est Pt Level 3 (18919) Diagnoses Atypical chest pain R07.89
[2023-12-19 13:56] VITALS: BP 118/68; PULSE 78; BMI 39.0
== END 2023-12-19 14:44 | disposition home or self-care (01) ==
PROVIDERS: PCP Internal Medicine; Visit Provider Nurse Practitioner
DX: R07.89 Other chest pain (principal)
CPT/HCPCS: 99213

== ENCOUNTER → 2023-12-19 13:29 | Outpatient (BNVA) | payer OTHER, SELFPAY | PROVIDERS: PCP Internal Medicine; Visit Provider Nurse Practitioner | DX: R07.89 Other chest pain (principal) ==

== ENCOUNTER 2023-12-20 14:57 | Outpatient (AMB) | payer OTHER, SELFPAY ==
[2023-12-20 15:06] VITALS: BMI 39.0
--- NOTE | 2023-12-20 15:06 | MHC.OFFVIS ---
Vital Signs 12/20/23 15:06 Height 5 ft 3 in Weight 220 lb BMI 39.0 Intake Visit Reasons: PO-Rt SF CRPP 11/11/23 ROM check Intake Note: Bautista a 33 year old male who presents today for a post operative ROM check s/p right SF CRPP on 11/11/23 AR. Patient reports no improvement in his ROM, states he is not able to extend his finger. Patient continues to do at home hand exercises. He is concerned of redness located at his PIP. Allergies levofloxacin [From Levaquin] Adverse Reaction (Verified 12/24/23 15:11) Swelling, drooling quetiapine [From Seroquel] Adverse Reaction (Verified 12/24/23 15:11) Swelling HPI HPI PO-Rt SF CRPP 11/11/23 ROM check: Details: Patient is a 33 YO M who presents for evaluation of redness and decreased ROM of the Rt Small finger s/p CRPP on 11/11/[address] Quintana. Patient reports that over the last 2-3 days, he has noticed decreased capacity for range of motion, in addition to increasing erythema and edema of the proximal phalanx of the right small finger. The patient is very concerned that this could be suspicious for infection, or the fracture worsening, so he requested repeat evaluation. The patient reports that there is no increased erythema, edema, or discharge from the pin sites just distal to the 5th MCP joint. No other acute complaints or concerns at this time. [facility] Medical History Uncontrolled type 2 diabetes mellitus with hyperglycemia Uncontrolled type 1 diabetes mellitus with hyperglycemia, without long-term current use of insulin Surgical History History of lung surgery Family History Mother Arthritis Other Family history of diabetes mellitus Social History Alcohol intake: current Alcohol intake frequency: does not drink Patient Tobacco Use Status: Never used Tobacco Second Hand Smoke Exposure: No Substance Use Type: Marijuana Current occupational status: employed Current occupation: [employer], right hand dominant Physical Exam Vital Signs: BMI result Body Mass Index 39.0 Extrem Other: Patient is alert, oriented, and in no acute distress. Neuro: Median, ulnar, radial nerves motor and sensory intact and sensation is normal to the tips of all digits. Vascular: Cap refill brisk Pain: Pain to palpation over the radial and ulnar aspects of the proximal phalanx of the right small finger noted. No tenderness to palpation at or about the pin sites. ROM: Decreased range of motion of the right small finger noted Skin: No lacerations or abrasions. General: Noted erythema and slight edema of the radial and ulnar aspects of the proximal phalanx of the right small finger noted However, there is noted to be edema on the radial and ulnar aspects of the proximal phalanges of other digits as well, although less pronounced No erythema, edema, evidence of infection at or about the pin sites Psych: Appears grossly normal Affect normal Attitude cooperative Assessment & Plan Assessment & Plan (1) Fracture of proximal phalanx of digit of right hand: Comment: R SF Code(s): S62.619A - Displaced fracture of proximal phalanx of unspecified finger, initial encounter for closed fracture Category: Medical Qualifiers: Encounter type: initial encounter Fracture type: closed Qualified Code(s): S62.619A - Displaced fracture of proximal phalanx of unspecified finger, initial encounter for closed fracture Plan 1. 1. Fracture of proximal phalanx of right small finger, status post CRPP DOS 11/11/2023 At this time, due to increasing redness, pain, and decreased range of motion, the patient is placed on a 1 week course of Augmentin Patient is also advised to continue to take it easy on the right hand, with a strict 2 lb weight limit being reinforced Patient is advised to finish his course of Augmentin Patient is amenable to this plan Patient will follow-up next week with Dr. Quintana for repeat evaluation and assessment of right small finger, sooner with any acute concerns. Medications: New amoxicillin-pot clavulanate 875-125 mg 1 tab PO BID 14 tabs 0RF 7 days Coding Level of Care Code Global (37447) Diagnoses Closed fracture of proximal phalanx of digit of right hand, initial encounter S62.619A Encounter type: initial encounter Fracture type: closed
== END 2023-12-20 15:24 | disposition home or self-care (01) ==
PROVIDERS: PCP Internal Medicine
DX: S62.619A Displaced fracture of proximal phalanx of unspecified finger, initial encounter for closed fracture (principal)
CPT/HCPCS: 99024

== ENCOUNTER → 2023-12-20 14:57 | Outpatient (BNVA) | payer OTHER, SELFPAY | PROVIDERS: PCP Internal Medicine ==

== ENCOUNTER 2023-12-24 11:13 | Outpatient (REF) | payer OTHER, SELFPAY ==
--- NOTE | ~2023-12-24 | XR_ITS ---
EXAMINATION: XR HAND, RIGHT CLINICAL INFORMATION: Pain COMPARISON: 12/11/2023 and 11/05/2023 TECHNIQUE: PA, lateral, and oblique views of the right hand. FINDINGS: Fifth digit K wires have been removed. Mild increased sclerosis identified about mildly displaced fracture at the base of the fifth proximal phalanx identified on 11/05/2023 study. XR/XR hand RT min 3V IMPRESSION: Healing fifth proximal phalangeal fracture following K wire removals. Electronically signed by: Emmy Cloud MD 01/21/2024 11:23 AM EDT
== END 2023-12-24 11:14 | disposition home or self-care (01) ==
LOC: HO.HOSX 11:13
PROVIDERS: Visit Provider Orthopaedic Surgery
DX: M79.641 Pain in right hand (principal); S62.616D Displaced fracture of proximal phalanx of right little finger, subsequent encounter for fracture with routine healing; Z98.890 Other specified postprocedural states
CPT/HCPCS: 73130

== ENCOUNTER 2023-12-24 14:32 | Outpatient (AMB) | payer OTHER, SELFPAY ==
--- NOTE | 2023-12-24 15:10 | A.OFFVIS_ITS ---
Intake Visit Reasons: PO-Rt SF CRPP 11/11/23 Intake Note: Bautista is a 33 yo right hand dominant male who presents today for a post operative ROM check s/p right SF CRPP on 11/11/23 AR. Patient reports no improvement in his ROM, states he is not able to extend his finger. Patient continues to do at home hand exercises. He is concerned of redness located at his PIP. Patient continues to take Augmentin. He reports his main concern today is the fact he is unable to move his finger. Allergies levofloxacin [From Levaquin] Adverse Reaction (Verified 12/24/23 15:11) Swelling, drooling quetiapine [From Seroquel] Adverse Reaction (Verified 12/24/23 15:11) Swelling HPI HPI PO-Rt SF CRPP 11/11/23: Details: Bautista is a 33 year old right hand dominant Diabetic man who returns S/P right small finger proximal phalanx CRPP, DOS: 11/11/23. He returns today with complaints of stiffness in his small finger, and he says that he is struggling to make a closed fist without pain. He also says he is struggling to fully extend his small finger, and he finds this motion the most difficult. He continues to perform ROM exercises at home and says this has not been helpful. He has been Seven-taping his ring & small fingers. The redness in his finger has resolved. He denies any drainage or evidence of infection near his pin-sites. He has been taking his PO Augmentin as instructed. His most recent HgA1c was 11.9% on 07/24/23. He says he has been working hard to improve his Diabetes and overall health in the last 3 months. He now has an insulin pump & a says his daily sugars are much lower and better controlled. He smokes Marijuana occasionally. 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 He says he has dogs and drives a stick shift, which he is worried will be difficult. He was cleared to return to work on light duty with a 2lb weight limit on 12/11/23 [facility] Medical History Uncontrolled type 2 diabetes mellitus with hyperglycemia Uncontrolled type 1 diabetes mellitus with hyperglycemia, without long-term current use of insulin Surgical History History of lung surgery Family History Mother Arthritis Other Family history of diabetes mellitus Social History Alcohol intake: current Alcohol intake frequency: does not drink Patient Tobacco Use Status: Never used Tobacco Second Hand Smoke Exposure: No Substance Use Type: Marijuana Current occupational status: employed Current occupation: [employer] [place], right hand dominant Physical Exam Const General: no acute distress and alert Orientation/consciousness: patient oriented x3 Neuro General: patient oriented x3 Extrem Other: The patient was alert oriented and in no acute distress The pin-sites are well-healed with no erythema drainage or evidence of infection. No erythema or swelling. Fracture is completely nontender He does have some small finger stiffness. We worked on ROM exercises today in clinic. After these exercises he could passively bring his small fingertip closed to a full fist and then actively hold this for 10 seconds. After he could better actively bring his finger down to a fist He has good extension of the small finger at the MCP joint, poor extension at the PIP & DIP joints, with a mild flexion contracture No tenderness over the fracture site Sensation is intact Cap refill is brisk Radiographs: 3 views of the right hand, with attention to the small finger, were taken and viewed by me today in clinic. They show a small finger proximal phalanx fracture with satisfactory fracture alignment and good evidence of interval bony healing. Psych Appearance: grossly normal Affect: normal affect Attitude: cooperative Assessment & Plan Assessment & Plan (1) Fracture of proximal phalanx of digit of right hand: Comment: R Code(s): S62.619A - Displaced fracture of proximal phalanx of unspecified finger, initial encounter for closed fracture Category: Medical Qualifiers: Encounter type: initial encounter Fracture type: closed Qualified Code(s): S62.619A - Displaced fracture of proximal phalanx of unspecified finger, initial encounter for closed fracture (2) Stiffness of finger joint of right hand: Code(s): M25.641 - Stiffness of right hand, not elsewhere classified Category: Medical (3) Controlled type 2 diabetes mellitus: Code(s): E11.9 - Type 2 diabetes mellitus without complications Category: Medical Qualifiers: Diabetes mellitus complication status: without complication Diabetes mellitus fdc insulin use: with fdc use Qualified Code(s): E11.9 - Type 2 diabetes mellitus without complications; Z79.4 - ocean transportation intermediary (current) use of insulin Plan Assessment & Plan: 1. Right small finger proximal phalanx base fracture, S/P CRPP DOI: 10/30/23 DOS: 11/11/23 Good FDS & FDP tendon function K-wires removed: 12/11/23 2. 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 We also encouraged him to continue to work on maintaining better control of his diabetes. He will follow up in 4 weeks for a ROM check Scribed for Makayla Quintana MD by Blayne Gilliland medical sales consultant, on 12/24/23 at 3:30 PM EST. Orders: Orders OT Evaluation and Treatment Today M25.649 - Stiffness of unspecified hand, not elsewhere classified, S62.619A - Displaced fracture of proximal phalanx of unspecified finger, initial encounter for closed fracture XR hand RT min 3V Today M79.641 - Pain in right hand Scribe Plan - Not visible on output: Scribed for Makayla Quintana MD by Blayne Gilliland medical sales consultant, on [ ] at [ ], EST. 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
== END 2023-12-24 15:49 | disposition home or self-care (01) ==
PROVIDERS: PCP Internal Medicine; Visit Provider Orthopaedic Surgery
DX: S62.619A Displaced fracture of proximal phalanx of unspecified finger, initial encounter for closed fracture (principal); M25.641 Stiffness of right hand, not elsewhere classified; E11.9 Type 2 diabetes mellitus without complications; Z79.4 Long term (current) use of insulin
CPT/HCPCS: 99024

== ENCOUNTER 2024-01-08 08:29 | Outpatient (AMB) | payer OTHER, SELFPAY ==
--- NOTE | 2024-01-08 08:39 | A.OFFVIS_ITS ---
Vital Signs 01/08/24 08:44 Handedness Right Intake Visit Reasons: PO-Rt SF CRPP 11/11/23 Intake Note: Bautista is a 33 year old right hand dominant male who presents today for a post operative visit s/p right Small Finger CRPP, DOS: 11/11/23 w/ AR. Patient reports he is still having trouble with his ROM of the right small finger. He is currently still doing OT, his last visit was this morning. They provided him with home exercises so he can continue to work on ROM at home. He expresses it is uncomfortable when he tries to straighten his finger but has no major concerns besides that. Denies numbness, tingling, and pain. Allergies levofloxacin [From Levaquin] Adverse Reaction (Verified 01/08/24 08:43) Swelling, drooling quetiapine [From Seroquel] Adverse Reaction (Verified 01/08/24 08:43) Swelling HPI HPI PO-Rt SF CRPP 11/11/23: Details: Patient is a 33-year-old male who presents for follow-up postop evaluation status post right small finger CRPP DOS 11/11/2023. Today, the patient reports that he is feeling well, and isn't experiencing any pain at this time. However, patient does report that he is still experiencing difficulty with extension of the right small finger, particularly in the PIP joint. The patient reports that he has been working with occupational therapy, and his range of motion of the right small finger has not improved significantly. The patient reports that he is able to extend fully at the MCP and PIP joints, but continues to experience difficulty with extension at the PIP joint. The patient reports that OT told him that they are not concerned for an extensor tendon injury, as he is able to extend to his current baseline of extension, but they feel that he is just weak in his joint and needs to work on his range of motion. The patient reports that he is able to passively extend the finger fully without difficulty. Patient reports no numbness or tingling at this time. No other acute complaints or concerns. [facility] Medical History Uncontrolled type 2 diabetes mellitus with hyperglycemia Uncontrolled type 1 diabetes mellitus with hyperglycemia, without long-term current use of insulin Surgical History History of lung surgery Family History Mother Arthritis Other Family history of diabetes mellitus Social History Alcohol intake: current Alcohol intake frequency: does not drink Patient Tobacco Use Status: Never used Tobacco Second Hand Smoke Exposure: No Substance Use Type: Marijuana Current occupational status: employed Current occupation: [employer], right hand dominant Physical Exam Extrem Other: Patient is alert, oriented, and in no acute distress. Neuro: Patient reports normal sensation to the tips of all digits of the right hand Vascular: Cap refill brisk Pain: Patient reports mild ?discomfort and ?tightness? with passive full extension of the right small finger, but does not report any brittny pain No other tenderness to palpation or pain with range of motion noted. ROM: Of note, the patient is noted to have an approximately 45 degree extensor lag in the PIP joint of the right small finger Able to passively extend without difficulty Patient is able to extend both the PIP and MCP joints of the right small finger fully without difficulty All other range of motion of the right hand full and intact Skin: Well-healed pin sites over the 5th metacarpal No open areas, or evidence of infection noted General: No ecchymosis, erythema, or evidence of infection. Psych: Appears grossly normal Affect normal Attitude cooperative Assessment & Plan Assessment & Plan (1) Stiffness of finger joint of right hand: Code(s): M25.641 - Stiffness of right hand, not elsewhere classified Category: Medical (2) Fracture of proximal phalanx of digit of right hand: Comment: R Code(s): S62.619A - Displaced fracture of proximal phalanx of unspecified finger, initial encounter for closed fracture Category: Medical Qualifiers: Encounter type: initial encounter Fracture type: closed Qualified Code(s): S62.619A - Displaced fracture of proximal phalanx of unspecified finger, initial encounter for closed fracture Plan 1. Fracture proximal phalanx of the small finger status post CRPP Date of injury 10/30/2023 DOS 11/11/2023 Patient appears to be recovering well postoperatively Patient is educated about the typical recovery course Patient is educated that the likelihood of an extensor tendon injury in the area where he is having difficulty extending is quite low, so he should continue working with occupational hand therapy to improve his range of motion Patient is also informed that there is no mechanical obstruction to extension, as he is able to passively extend fully Patient is amenable to this plan Patient will follow up in 6 weeks for xqdnv-bz-[id number] check, sooner with any acute concerns Coding Level of Care Code Global (98414) Diagnoses Stiffness of finger joint of right hand M25.641 Closed fracture of proximal phalanx of digit of right hand, initial encounter S62.619A Encounter type: initial encounter Fracture type: closed
== END 2024-01-08 09:02 | disposition home or self-care (01) ==
PROVIDERS: PCP Internal Medicine
DX: M25.641 Stiffness of right hand, not elsewhere classified (principal); S62.619A Displaced fracture of proximal phalanx of unspecified finger, initial encounter for closed fracture
CPT/HCPCS: 99024

== ENCOUNTER → 2024-01-08 08:29 | Outpatient (BNVA) | payer OTHER, SELFPAY | PROVIDERS: PCP Internal Medicine ==

== ENCOUNTER 2024-01-21 08:49 | Outpatient (REF) | payer OTHER, SELFPAY | END 2024-01-21 08:50 | disposition home or self-care (01) | LOC: HO.HOSX 08:49 | PROVIDERS: Visit Provider Orthopaedic Surgery | DX: Z13.89 Encounter for screening for other disorder (principal) ==

== ENCOUNTER 2024-01-21 11:12 | Outpatient (AMB) | payer OTHER, SELFPAY ==
[2024-01-21 11:35] VITALS: BMI 39.0
--- NOTE | 2024-01-21 11:35 | A.OFFVIS_ITS ---
Vital Signs 01/21/24 11:35 Height 5 ft 3 in Weight 220 lb BMI 39.0 Intake Visit Reasons: PO-Rt SF CRPP 11/11/23 Intake Note: Bautista is a 33 year old right hand dominant male who presents today for ROM check s/p right Small Finger CRPP, DOS: 11/11/[address] Quintana. Patient reports minimal improvement with PT/OT. He reports he is unable to fully extend his right small finger. Allergies levofloxacin [From Levaquin] Adverse Reaction (Verified 01/21/24 11:35) Swelling, drooling quetiapine [From Seroquel] Adverse Reaction (Verified 01/21/24 11:35) Swelling HPI HPI PO-Rt SF CRPP 11/11/23: Details: Bautista is a 33 year old right hand dominant Diabetic man who returns S/P right small finger proximal phalanx CRPP, DOS: 11/11/23. He is here for a ROM check. He continues to have difficulty with & is struggling to fully extend his small finger, particularly at the PIP joint. He has been attending OT hand therapy and finds limited improvement. He continues to perform ROM exercises at home and says this has not been helpful. He has been wearing the finger splint given to him by OT, both overnight & occasionally during the day. He is frustrated that he has not improved as much as he would like. His most recent HgA1c was 6.8% on 11/27/23. He smokes Marijuana occasionally. 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 He says he has dogs and drives a stick shift, which he is wor ried will be difficult. He was cleared to return to work on light duty with a 2lb weight limit on 12/11/23 [facility] Medical History Uncontrolled type 2 diabetes mellitus with hyperglycemia Uncontrolled type 1 diabetes mellitus with hyperglycemia, without long-term current use of insulin Surgical History History of lung surgery Family History Mother Arthritis Other Family history of diabetes mellitus Social History Alcohol intake: current Alcohol intake frequency: does not drink Patient Tobacco Use Status: Never used Tobacco Second Hand Smoke Exposure: No Substance Use Type: Marijuana Current occupational status: employed Current occupation: [employer], right hand dominant Review of Systems Const All systems reviewed & are unremarkable except as noted in HPI and below Physical Exam Vital Signs: BMI result Body Mass Index 39.0 Const General: no acute distress and alert Orientation/consciousness: patient oriented x3 Neuro General: patient oriented x3 Extrem Other: Evaluation of Right Upper Extremity: The patient is alert, oriented, and in no acute distress Neuro: Median, Ulnar, Radial nerves motor and sensory intact and sensation is normal to the tips of all digits Vascular: Cap refill brisk ROM: He can bring his fingers closed to a fist He can actively extend his thumb, index, middle, and ring fingers fully at the MCP & PIP joints He can actively extend his small finger MCP joint, and also bring it into slight hyperextension He has an ~45 degree active extensor lag of the small finger PIP joint Passively his small finger can be brought almost into full extension He continues to have some tightness in the volar plate Radiographs: 3 views of the right hand, with attention to the small finger, were taken and viewed by me today in clinic. They show a small finger proximal phalanx fracture with satisfactory fracture alignment and good evidence of interval bony healing. 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 Right small finger proximal phalanx base fracture, S/P CRPP DOI: 10/30/23 DOS: 11/11/23 Good FDS & FDP tendon function K-wires removed: 12/11/23 2. Right small finger stiffness & lacking about 45 degrees of active PIP joint extension The patient appears to be doing well post-operatively His fracture has gone on to heal well. He has had some improvement in the small finger MCP extension, and in the range of motion of the ring finger MCP and PIP joints It sounds like the PIP joint is improving but not as fast as he would like. He has been attending OT hand therapy & working on ROM exercises at home He should continue with OT hand therapy on ROM & normalizing hand function, with a focus on passive and active PIP extension We worked on range of motion exercises today in clinic. 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 He will return in 4 weeks for a follow up appointment with LI[facility] [place] for rang e-of-motion check. No radiographs are necessary. I am hopeful that he will continue to improve with his exercises. Scribed for Makayla Quintana MD by Blayne Gilliland, medical device sales representative, on 01/21/24 at 12:05 PM EST. Orders: Orders XR hand RT min 3V Today M79.641 - Pain in right hand Scribe Plan - Not visible on output: Scribed for Makayla Quintana MD by Blayne Gilliland medical device sales representative, on [ ] at [ ], EST. Coding Level of Care Code Global (67215) Diagnoses Stiffness of finger joint of right hand M25.641 Controlled type 2 diabetes mellitus without complication, with long-term current use of insulin E11.9; Z79.4 Diabetes mellitus complication status: without complication Diabetes mellitus group home insulin use: with group home use
== END 2024-01-21 12:22 | disposition home or self-care (01) ==
PROVIDERS: PCP Internal Medicine; Visit Provider Orthopaedic Surgery
DX: M25.641 Stiffness of right hand, not elsewhere classified (principal); E11.9 Type 2 diabetes mellitus without complications; Z79.4 Long term (current) use of insulin
CPT/HCPCS: 99024

== ENCOUNTER 2024-01-28 08:00 | Outpatient (RCR) | payer OTHER, SELFPAY ==
--- NOTE | 2023-12-31 13:02 | MHC.OT.OEV ---
[address] [phone] F: [phone] Occupational Therapy Evaluation Patient Name: Bautista Wiggins Diagnosis: (R)SF CRPP Date of Onset: 10/30/23 Date of Surgery: 11/11/23 Attending Provider: Makayla Quintana Prescribed Treatment: Follow Up Appointment: History of Current Condition: Patient is a 33 y/o male with PMHx of Lung CA (2013), and DMII 7 weeks s/p (R)SF CRPP from a fall at his grandmothers house. Per patient report he trip on untied shoe laces and place hand out to block his fall resulting in a displaced proximal phalanx fx. 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 He lives with raven in a 1 level home. He enjoys driving, play video games and snow boarding. He stated he has difficulty with writing, gripping/grabbing items, washing a counter down or doing the dishes. He states his pain is a 0/10 at rest and 4/10 with movement. He has numbness/tingling that comes and goes. His main goal for therapy is for his small finger to be straight again. Significant Medical History: DM II Lung CA (10 years ago) Precautions/Contraindications: Patient Goals: Hopefully, for the finger to work the right way. 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 [employer] Drives, plays video games, snow boards Living Situation, Family and/or Social Support: Lives with girlfriend Current Level of Function and Occupation Self Care, Employment, Leisure: min (A)ADLs/IADLs Sleep: Driving: Vision: Balance: Pain Assessment Pain Score: 4 Pain Scale Used: Numeric (0 - 10) Pain Location and Description: lateral side of SF 4/10 pain Aggravating Factors: Alleviating Factors: Not using anything Skin and Soft Tissue Assessment Skin and Soft Tissue: Comments: Nerve assessment Ulnar Nerve: Median Nerve: Radial Nerve: Comments: Sensory Assessment Temperature: Light Touch: Proprioception: Vibration: Comments: Monofilament Test= WFL Edema Assessment Upper Extremity: Lower Extremity: Comments: mild edema present (R)SF PIP Dexterity Assessment Dexterity: Comments: Functional Dexterity Test= WFL Special Tests Comments: AROM(PROM) Strength Cervical Cervical Flexion: Cervical Extension: Cervical Lateral Flexion: Cervical Rotation: Comments: Shoulder Flexion: Extension: Abduction: Internal Rotation: External Rotation: Comments: WFL Flexion: Extension: Abduction: Internal Rotation: External Rotation: Comments: WFL Elbow Flexion: Extension: Pronation: Supination: Comments: Flexion: Extension: Pronation: Supination: Comments: WFL Wrist Flexion: Extension: Ulnar Deviation: Radial Deviation: Comments: WFL Flexion: Extension: Ulnar Deviation: Radial Deviation: Comments: WFL Thumb Thumb CMC Flexion: Thumb MCP Flexion: Thumb IP Flexion: Radial Abduction: Palmar Abduction: [place] (Kapandji 0-10): Comments: WFL Digits Index MCP: PIP: DIP: Long MCP: PIP: DIP: Ring MCP: PIP: DIP: Small MCP: WFL PIP: 59 flexion/ 30 extension/ 10 Passively DIP: 52* flexion Comments: Gross Grasp: (L)85lbs. (R)N/A Lateral Pinch: Two-Point Pinch: Three-Jaw Merlin: Comments: Patient Education Primary Language: Romanian Warp Bleaching Vat Tender Required: No Current Knowledge: Teaching Method: Education Needs Identified on Evaluation: How did patient/family demonstrate learning? Barriers to Learning: Readiness for Learning: Who was educated? Comments: Plan of Care Assessment: Patient is a 33 y/o male 7weeks s/p SF CRPP with c/o limited ROM. Based on initial assessment patient's current (R)5th digit ROM is as follows: MCP WFL, PIP 59* flexion, 30* extension, 10 passive extension, DIP 52* flexion, WFL extension. He reports 4/10 pain during activity with tingling/ numbness that comes and goes. Monofilament Test= WFL, Functional Dexterity Test= WFL. Quick DASH=50 indicating patient's perceived impairment on UE during self care tasks. Patient's CLOF is min (A) as patient presents with impaired ROM, impaired strength, pain and impaired performance during self care tasks. Due to the documented impairments it is recommended that patient receive skilled OT services in order for patient to achieve his PLOF. Thank you for your referral. STG Duration: 2 weeks Short Term Goals: Patient will be (I) with wear schedule of finger extension brace Patient will report 2/10 pain in (R)SF Patient will increase (R)SF PIP extension by 10* LTG Duration: 4 weeks Custodial Goals: Patient will be (I) with HEP Patient will achieve 0* PIP extension Patient will report 0/10 pain Frequency and Duration: The patient will be seen 2x a week for 4 weeks Treatment Plan: Therapeutic Exercise Therapeutic Activity Home Exercise Program Splinting Edema Control OT eval and treat Electronically Signed By: Kayla Freitas OTR/L Reviewed/agree with student documentation: Therapist: Please sign and return to therapist, Thank you for your referral.
--- NOTE | 2024-01-15 08:49 | MHC.OT.OP ---
[address] [phone] F: [phone] Occupational Therapy Progress Note Patient Name: Bautista Wiggins Diagnosis: (R) SF CRPP Date of Surgery: 11/11/23 Date of Evaluation: 12/30/23 Treatments to Date: 5 Subjective: I can see progress but not as fast as I want Pain Score: 1 Pain Location: right small finger Objective Measures: Full digit flexion and passive PIP extension Pt w/ PIP extensor lag ~40 degrees, but actively to 30 w/ MCP blocked in flexion Gross grasp R 70lb L 100lb Status: Progressing Assessment: 9 weeks post-op D5 CRPP, good follow through w/ HEP including ROM and scar management. He has good gross grasp and composite fist, full passive small finger extension, but still w/ extension lag. Focus has been on scar management and active movement, progressing but slowly. Short Term Goals: Patient will be (I) with wear schedule of finger extension brace Patient will report 2/10 pain in (R)SF Patient will increase (R)SF PIP extension by 10* Nursing Home Goals: Patient will be (I) with HEP Patient will achieve 0* PIP extension Patient will report 0/10 pain Frequency and Duration: The patient will be seen 2x/wk for 4 weeks Treatment Plan: Therapeutic Exercise Therapeutic Activity Home Exercise Program Splinting Patient Education Edema Control ADL Training Ultrasound Paraffin Fluidotherapy MHP Cold Packs Joint Mobilization Soft Tissue Mobilization Kinesiotaping OT eval and treat Electronically Signed By: Lucia Escobar, OTR/L CHT Reviewed/agree with student documentation: Therapist:
--- NOTE | 2024-03-12 09:28 | MHC.OT.DC ---
[address] [phone] F: [phone] Occupational Therapy Discharge Note Patient Name: Bautista Wiggins Provider: Makayla Quintana Diagnosis: (R) SF CRPP Date of Surgery: 11/11/23 Date of Evaluation: 12/30/23 Date of Discharge: Treatments to Date: 7 Cancellations to Date: No Shows to Date: Discharge Status: Visit Non-compliance Discharge Summary: Patient is discharged Electronically Signed By: JUDD Hill/Neris, CLT Reviewed/agree with student documentation: Therapist: Please Sign and return to therapist, thank you for your referral.
== END 2024-03-12 09:29 | disposition home or self-care (01) ==
LOC: HO.OT 08:00
PROVIDERS: PCP Internal Medicine; Visit Provider Orthopaedic Surgery
DX: S62.616D Displaced fracture of proximal phalanx of right little finger, subsequent encounter for fracture with routine healing (principal); M25.641 Stiffness of right hand, not elsewhere classified
CPT/HCPCS: 97110; 97140; 97165; 97760

== ENCOUNTER 2024-02-24 08:04 | Outpatient (AMB) | payer OTHER, SELFPAY ==
--- NOTE | 2024-02-24 08:19 | A.OFFVIS_ITS ---
Vital Signs 02/24/24 08:20 Height 5 ft 3 in Weight 220 lb BMI 39.0 Handedness Right Intake Visit Reasons: PO-Rt SF CRPP 11/11/23 Intake Note: Bautista is a 33 year old right hand dominant male who presents today for a post operative visit s/p right Small Finger CRPP, DOS: 11/11/[address] Quintana. Patient expresses his ROM is the same as his last visit, has not improved or changed. He continues doing the exercises from OT at home. Denies numbness, tingling or pain. Allergies levofloxacin [From Levaquin] Adverse Reaction (Verified 02/24/24 08:21) Swelling, drooling quetiapine [From Seroquel] Adverse Reaction (Verified 02/24/24 08:21) Swelling HPI HPI PO-Rt SF CRPP 11/11/23: Details: Patient is a 33-year-old male who presents for bbdkt-vo-uhsmjy check status post right small finger CRPP with Dr. Quintana, DOS 11/11/2023. Today, the patient reports that he does feel his range of motion has improved, although he is still unable to straight in the right small finger fully at the PIP joint. The patient reports that he was discharged from occupational therapy early due to missing to appointments, but states that he did feel it was more helpful to do aqwse-eu-vdhuai exercises at home then occupational therapy was in the 1st place. Patient reports that he has been back to work full duty without difficulty. No numbness or tingling in the right hand. No other acute complaints or concerns at this time. [facility] Medical History Uncontrolled type 2 diabetes mellitus with hyperglycemia Uncontrolled type 1 diabetes mellitus with hyperglycemia, without long-term current use of insulin Surgical History History of lung surgery Family History Mother Arthritis Other Family history of diabetes mellitus Social History Alcohol intake: current Alcohol intake frequency: does not drink Patient Tobacco Use Status: Never used Tobacco Second Hand Smoke Exposure: No Substance Use Type: Marijuana Current occupational status: employed Current occupation: [employer], right hand dominant Physical Exam Vital Signs: BMI result Body Mass Index 39.0 Const General: no acute distress and alert Orientation/consciousness: patient oriented x3 Neuro General: patient oriented x3 Extrem Other: Evaluation of Right Upper Extremity: The patient is alert, oriented, and in no acute distress Neuro: Median, Ulnar, Radial nerves motor and sensory intact and sensation is normal to the tips of all digits Vascular: Cap refill brisk ROM: He can bring his fingers closed to a fist He can actively extend his thumb, index, middle, and ring fingers fully at the MCP & PIP joints He can actively extend his small finger MCP joint, and also bring it into slight hyperextension He has an ~30-34 degree active extensor lag of the small finger PIP joint Passively his small finger can be brought almost into full extension He continues to have some tightness in the volar plate Psych Appearance: grossly normal Affect: normal affect Attitude: cooperative Assessment & Plan Assessment & Plan (1) Stiffness of finger joint of right hand: Code(s): M25.641 - Stiffness of right hand, not elsewhere classified Category: Medical (2) Controlled type 2 diabetes mellitus: Code(s): E11.9 - Type 2 diabetes mellitus without complications Category: Medical Qualifiers: 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 Right small finger proximal phalanx base fracture, S/P CRPP DOI: 10/30/23 DOS: 11/11/23 Good FDS & FDP tendon function K-wires removed: 12/11/23 2. Right small finger stiffness & lacking about 45 degrees of active PIP joint extension The patient appears to be doing well post-operatively His fracture has gone on to heal well. He has had some improvement in the small finger MCP extension, and in the range of motion of the ring finger MCP and PIP joints It sounds like the PIP joint is improving but not as fast as he would like. Patient should continue with home brekh-tq-qtahle exercises to help to improve range of motion and functional capacity, but should call our office if he feels he does not experience any further improvement to be re-referred to occupational therapy We worked on range of motion exercises today in clinic. He should continue working on ROM exercises at home, with a focus on extension of the small finger PIP joint volar plate He will follow-up in 4-6 weeks for prltu-[id number] check with either myself or Dr. Quintana, sooner with any acute concerns Scribe Plan - Not visible on output: Scribed for Makayla Quintana MD by Blayne Gilliland, medical records administrator, on [ ] at [ ], EST. 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
[2024-02-24 08:20] VITALS: BMI 39.0
== END 2024-02-24 08:43 | disposition home or self-care (01) ==
PROVIDERS: PCP Internal Medicine
DX: M25.641 Stiffness of right hand, not elsewhere classified (principal); E11.9 Type 2 diabetes mellitus without complications; Z79.4 Long term (current) use of insulin
CPT/HCPCS: 99213

== ENCOUNTER → 2024-02-24 08:04 | Outpatient (BNVA) | payer OTHER, SELFPAY | PROVIDERS: PCP Internal Medicine ==

== ENCOUNTER 2024-02-27 08:23 | Outpatient (AMB) | payer OTHER, SELFPAY ==
--- NOTE | 2024-02-27 08:37 | A.OFFVIS_ITS ---
Vital Signs 02/27/24 08:38 Height 5 ft 3 in Weight 220 lb 7.396 oz BMI 39.0 BP 120/80 Blood Pressure Location Rt brachial Position Sitting Pulse 70 Pulse Source Pulse Oximeter Intake Visit Reasons: DM/CONFIRMED Intake Note: Patient presents today for a follow-up on DM TYPE 2: Most recent Diabetic Eye Exam: 06/2023 Most recent Podiatry Exam: Does not see a Microbiology Instructor Most recent HbA1c: 6.9%, 02/27/2024 Random Glucose- 199 mg/dL, Ring Stamper Required: No Accompanied by: Self / Same As Patient Allergies levofloxacin [From Levaquin] Adverse Reaction (Verified 02/24/24 08:21) Swelling, drooling quetiapine [From Seroquel] Adverse Reaction (Verified 02/24/24 08:21) Swelling HPI Comments Details: The patient is a 33 year old male with a past medical history of type 2 diabetes presenting for follow up. Diagnosed in 2021 in DKA Since his last MD visit he has initiated the iLet pump and the results have been remarkable. He has been following with our senior clinical data manager. Current regimen: humalog via iLET pump. On ARB, statin. Previously on short and long acting insulin preparations. Tried Mounjaro - had GI side effects. Stopped trulicity. POC A1C today 6.8%. Dexcom downloaded today and reviewed GMI 6.6% with avg glucose 138, TGT 100% No known microvascular, macrovascular complications. (-)alb/cr, LDL<100 Notes UTD eye exam Labs: Anti-LOREN 65 Ab were negative. C-peptide response was adequate ROS CONSTITUTIONAL: Denies weight loss, fever and chills. HEENT: Denies changes in vision and hearing. RESPIRATORY: Denies SOB and cough. CV: Denies palpitations and CP GI: Denies abdominal pain, nausea, vomiting and diarrhea. : Denies dysuria and urinary frequency. MSK: Denies new myalgia and joint pain. SKIN: Denies rash and pruritus. NEUROLOGICAL: Denies headache PSYCHIATRIC: Denies recent changes in mood. PHYSICAL EXAM: GENERAL: Alert and oriented x 3. NAD EYES: EOMI. Anicteric. HENT: Moist mucous membranes. No scleral icterus. No cervical lymphadenopathy. LUNGS: Clear to auscultation bilaterally. CARDIOVASCULAR: Regular rate and rhythm. No murmur. No JVD. ABDOMEN: Soft, non-tender +bs EXTREMITIES: No edema. Non-tender. SKIN: No rashes or lesions. Warm. NEUROLOGIC: No focal neurological deficits. CN II-XII grossly intact. Normal monofilament. Normal vibratory exam. +DP pulses bilaterally PSYCHIATRIC: Cooperative. Appropriate mood and affect [facility] Medical History Uncontrolled type 2 diabetes mellitus with hyperglycemia Uncontrolled type 1 diabetes mellitus with hyperglycemia, without long-term current use of insulin Surgical History History of lung surgery Family History Mother Arthritis Other Family history of diabetes mellitus Social History Alcohol intake: current Alcohol intake frequency: does not drink Patient Tobacco Use Status: Never used Tobacco Second Hand Smoke Exposure: No Substance Use Type: Marijuana Current occupational status: employed Current occupation: [employer] [place], right hand dominant Physical Exam Vital Signs: Last Vital Signs Pulse 70 02/27/24 08:38 BP 120/80 02/27/24 08:38 BMI result Body Mass Index 39.0 Results AMB Hemoglobin A1c AMB Hemoglobin A1c 6.9 % Last Edit by MONI Sy on 02/27/24 08:50 Results Reviewed Results Reviewed: Laboratory Last Values Glucose (Clinic) 199 mg/dL (60-115) H 02/27/24 08:42 Hgb A1c (Clinic) 6.9 % (4.0-6.0) H 02/27/24 08:46 Assessment & Plan Assessment & Plan (1) Controlled type 2 diabetes mellitus: Code(s): E11.9 - Type 2 diabetes mellitus without complications Category: Medical Qualifiers: Diabetes mellitus complication status: without complication Diabetes mellitus terminal computer operator insulin use: with terminal computer operator use Qualified Code(s): E11.9 - Type 2 diabetes mellitus without complications; Z79.4 - skilled nursing (current) use of insulin Plan: Well controlled. Continue iLet, current dosing. Return in 3 months Orders: Orders AMB Hemoglobin A1c Today E11.65 - Type 2 diabetes mellitus with hyperglycemia Hemoglobin A1c 3 Months E11.9 - Type 2 diabetes mellitus without complications, Z79.4 - terminal computer operator (current) use of insulin Coding Level of Care Code Est Pt Level 3 (83612) Diagnoses Controlled type 2 diabetes mellitus without complication, with long-term current use of insulin E11.9; Z79.4 Diabetes mellitus complication status: without complication Diabetes mellitus fci insulin use: with fci use
[2024-02-27 08:38] VITALS: BP 120/80; PULSE 70; BMI 39.0
[2024-02-27 08:46] LABS: Glucose, Whole Blood 199 mg/dL (60-115)
== END 2024-02-27 09:01 | disposition home or self-care (01) ==
PROVIDERS: PCP Internal Medicine; Visit Provider Internal Medicine
DX: E11.9 Type 2 diabetes mellitus without complications (principal); Z79.4 Long term (current) use of insulin; E11.65 Type 2 diabetes mellitus with hyperglycemia

== ENCOUNTER → 2024-02-27 08:23 | Outpatient (BNVA) | payer OTHER, SELFPAY | PROVIDERS: PCP Internal Medicine; Visit Provider Internal Medicine | DX: E11.9 Type 2 diabetes mellitus without complications (principal); Z79.4 Long term (current) use of insulin | CPT/HCPCS: 82947; 83036 ==

== ENCOUNTER 2024-03-30 08:25 | Outpatient (AMB) | payer OTHER, SELFPAY ==
--- NOTE | 2024-03-30 08:28 | MHC.OFFVIS ---
Vital Signs 03/30/24 08:30 Height 5 ft 3 in Weight 220 lb BMI 39.0 Handedness Right Intake Visit Reasons: PO-Rt SF CRPP 11/11/23 Intake Note: Bautista is a 33 year old right hand dominant male who presents today for a follow up visit s/p right Small Finger CRPP, DOS: 11/11/[address] Quintana. K-wires removed: 12/11/23. Patient reports his ROM feels the same as last visit and has not changed. His right hand small finger feels stiff. He says when he puts on his splint and does his stretches his finger straightens out for a short amount amount of time but once he stops is goes back to being bent inward. Denies numbness and tingling. Allergies levofloxacin [From Levaquin] Adverse Reaction (Verified 03/30/24 08:30) Swelling, drooling quetiapine [From Seroquel] Adverse Reaction (Verified 03/30/24 08:30) Swelling HPI HPI PO-Rt SF CRPP 11/11/23: Details: Patient is a 33-year-old male who presents for jrpii-st-jzkgin check status post small finger CRPP, DOS 11/11/2023. Today, the patient reports that he does feel that the range of motion in his right small finger has improved slightly since last visit, and states that when he performs his exercises regularly, he does notice that he is able to straighten the right small finger, but the patient states that if he goes more than 1 day without performing his exercises he feels that the right small finger returns to its postoperative baseline. Patient reports that he was discharged from occupational therapy. The patient reports that this does not cause him any pain, although he is bothered by the appearance of his right small finger. Patient denies any numbness or tingling in the right hand. No other acute complaints or concerns at this time. [facility] Medical History Uncontrolled type 2 diabetes mellitus with hyperglycemia Uncontrolled type 1 diabetes mellitus with hyperglycemia, without long-term current use of insulin Surgical History History of lung surgery Family History Mother Arthritis Other Family history of diabetes mellitus Social History Alcohol intake: current Alcohol intake frequency: does not drink Patient Tobacco Use Status: Never used Tobacco Second Hand Smoke Exposure: No Substance Use Type: Marijuana Current occupational status: employed Current occupation: [employer] [place], right hand dominant Physical Exam Vital Signs: BMI result Body Mass Index 39.0 Const General: no acute distress and alert Orientation/consciousness: patient oriented x3 Neuro General: patient oriented x3 Extrem Other: Evaluation of Right Upper Extremity: The patient is alert, oriented, and in no acute distress Neuro: Median, Ulnar, Radial nerves motor and sensory intact and sensation is normal to the tips of all digits Vascular: Cap refill brisk ROM: He can bring his fingers closed to a fist He can actively extend his thumb, index, middle, and ring fingers fully at the MCP & PIP joints He can actively extend his small finger MCP joint, and also bring it into slight hyperextension He has an ~30 degree active extensor lag of the small finger PIP joint Passively his small finger can be brought almost into full extension He continues to have some tightness in the volar plate Psych Appearance: grossly normal Affect: normal affect Attitude: cooperative Assessment & Plan Assessment & Plan (1) Stiffness of finger joint of right hand: Code(s): M25.641 - Stiffness of right hand, not elsewhere classified Category: Medical (2) Controlled type 2 diabetes mellitus: Code(s): E11.9 - Type 2 diabetes mellitus without complications Category: Medical Qualifiers: Diabetes mellitus senior care insulin use: with senior care use Diabetes mellitus complication status: without complication Qualified Code(s): E11.9 - Type 2 diabetes mellitus without complications; Z79.4 - FPC (current) use of insulin Plan Assessment & Plan: 1. Right small finger proximal phalanx base fracture, S/P CRPP DOI: 10/30/23 DOS: 11/11/23 Good FDS & FDP tendon function K-wires removed: 12/11/23 2. Right small finger stiffness & lacking about 45 degrees of active PIP joint extension The patient appears to be doing well post-operatively His fracture has gone on to heal well. He has had some improvement in the small finger MCP extension, and in the range of motion of the ring finger MCP and PIP joints We worked on range of motion exercises today in clinic. He should continue working on ROM exercises at home, with a focus on extension of the small finger PIP joint volar plate Patient will follow-up with Dr. Quintana for [id number]-[id number] check and discussion of any further treatment options if indicated, sooner with any acute concerns Scribe Plan - Not visible on output: Scribed for Makayla Quintana MD by Blayne Gilliland, pediatrician/medical doctor, on [ ] at [ ], EST. Coding Level of Care Code Est Pt Level 3 (61277) Diagnoses Stiffness of finger joint of right hand M25.641 Controlled type 2 diabetes mellitus without complication, with long-term current use of insulin E11.9; Z79.4 Diabetes mellitus superintendent container terminal insulin use: with superintendent container terminal use Diabetes mellitus complication status: without complication
[2024-03-30 08:30] VITALS: BMI 39.0
== END 2024-03-30 08:49 | disposition home or self-care (01) ==
PROVIDERS: PCP Internal Medicine
DX: M25.641 Stiffness of right hand, not elsewhere classified (principal); E11.9 Type 2 diabetes mellitus without complications; Z79.4 Long term (current) use of insulin
CPT/HCPCS: 99213

== ENCOUNTER 2024-04-08 13:10 | Outpatient (REF) | payer OTHER, SELFPAY | END 2024-04-08 13:11 | disposition home or self-care (01) | LOC: HO.HOSX 13:10 | PROVIDERS: Visit Provider Orthopaedic Surgery | DX: M79.641 Pain in right hand (principal) | CPT/HCPCS: 73130 ==

== ENCOUNTER 2024-04-08 13:14 | Outpatient (AMB) | payer OTHER, SELFPAY ==
[2024-04-08 14:16] VITALS: BMI 39.0
--- NOTE | 2024-04-08 14:16 | MHC.OFFVIS ---
Vital Signs 04/08/24 14:16 Height 5 ft 3 in Weight 220 lb BMI 39.0 Intake Visit Reasons: PO-Rt SF CRPP 11/11/23 Intake Note: Bautista is a 33 year old right hand dominant male who presents today for a ROM check s/p right Small Finger CRPP, DOS: 11/11/[address] Quintana. Patient reports he continues to have difficulty extending his right small finger at the PIP joint. He has completed OT. Allergies levofloxacin [From Levaquin] Adverse Reaction (Verified 04/08/24 14:20) Swelling, drooling quetiapine [From Seroquel] Adverse Reaction (Verified 04/08/24 14:20) Swelling HPI HPI PO-Rt SF CRPP 11/11/23: Details: Bautista is a 33 year old right hand dominant Diabetic man who returns S/P right small finger proximal phalanx CRPP, DOS: 11/11/23. He is here for a ROM check. He continues to have difficulty with & is struggling to fully extend his small finger, particularly at the PIP joint. He is able to make a fist. He continues to perform ROM exercises at home and says this has not been helpful. He was discharged from OT due to visit non-compliance on 03/12/24. His most recent HgA1c was 6.8% on 11/27/23. He smokes Marijuana occasionally. 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 He says he has dogs and drives a stick shift, which he is worried will be difficult. He was cleared to return to work on light duty with a 2lb weight limit on 12/11/23 [facility] Medical History Uncontrolled type 2 diabetes mellitus with hyperglycemia Uncontrolled type 1 diabetes mellitus with hyperglycemia, without long-term current use of insulin Surgical History History of lung surgery Family History Mother Arthritis Other Family history of diabetes mellitus Social History Alcohol intake: current Alcohol intake frequency: does not drink Patient Tobacco Use Status: Never used Tobacco Second Hand Smoke Exposure: No Substance Use Type: Marijuana Current occupational status: employed Current occupation: [employer] [place], right hand dominant Physical Exam Vital Signs: BMI result Body Mass Index 39.0 Const General: no acute distress and alert Orientation/consciousness: patient oriented x3 Neuro General: patient oriented x3 Extrem Other: Evaluation of Right Upper Extremity: The patient is alert, oriented, and in no acute distress Neuro: Median, Ulnar, Radial nerves motor and sensory intact and sensation is normal to the tips of all digits Vascular: Cap refill brisk ROM: He can bring his fingers closed to a fist He can actively extend his thumb, index, middle, and ring fingers fully at the MCP & PIP joints He can actively extend his small finger MCP joint, and also bring it into slight hyperextension He has an ~45 degree active extensor lag of the small finger PIP joint Passively his small finger can be brought almost into full extension He continues to have some tightness in the volar plate Radiographs: 3 views of the right hand, with attention to the small finger, were taken and viewed by me today in clinic. They show a healed small finger proximal phalanx fracture with satisfactory fracture alignment Psych Appearance: grossly normal Affect: normal affect Attitude: cooperative Assessment & Plan Assessment & Plan (1) Central slip extensor tendon injury (boutonniere): Code(s): M20.029 - Boutonniere deformity of unspecified finger(s) Category: Medical (2) Controlled type 2 diabetes mellitus: Code(s): E11.9 - Type 2 diabetes mellitus without complications Category: Medical Qualifiers: Diabetes mellitus complication status: without complication Diabetes mellitus care home insulin use: with terminal supervisor use Qualified Code(s): E11.9 - Type 2 diabetes mellitus without complications; Z79.4 - nursing home (current) use of insulin Plan Assessment & Plan: 1. Right small finger central slip injury Likely secondary to his fall, DOI: 10/30/23 With an ~45 degree extensor lag at the PIP joint I educated him about this condition I discussed operative and non-operative treatment options The patient would like to proceed with non-operative treatment at this time He was fitted for a finger splint until he is seen by OT hand therapy I referred him to OT hand therapy to have TWO custom thermoplastic splint made to hold his small finger PIP joint in full extension, and allow for MCP & DIP joint motion I discuss the nature and importance of / splinting and extension for 6 weeks. I am hopeful that this will help reduce his extensor lag, and that we can do this in such a way that he does not miss more work. Following this he would need 6-8 hours a day of extension splinting. He does understands possible if this does not work that he may need operative treatment. 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 He will follow up in 6 weeks to see how he is doing. If he has managed to keep his finger splinted in extension at all times we may proceed to 6 weeks of 8 hours daily splinting. Otherwise we may again consider operative treatment 2. Right small finger proximal phalanx base fracture, S/P CRPP DOI: 10/30/23 DOS: 11/11/23 Good FDS & FDP tendon function K-wires removed: 12/11/23 This went on to heal well. Scribed for Makayla Quintana MD by Blayne Gilliland, behavioral medical director, on 04/08/24 at 2:25 PM EST. Orders: Orders XR hand RT min 3V Today M79.641 - Pain in right hand OT Evaluation and Treatment Today M20.029 - Boutonniere deformity of unspecified finger(s) Scribe Plan - Not visible on output: Scribed for Makayla Quintana MD by Blayne Gilliland behavioral medical director, on [ ] at [ ], EST. Coding Level of Care Code Est Pt Level 4 (50474) Diagnoses Central slip extensor tendon injury (boutonniere) M20.029 Controlled type 2 diabetes mellitus without complication, with long-term current use of insulin E11.9; Z79.4 Diabetes mellitus complication status: without complication Diabetes mellitus care home insulin use: with terminal supervisor use
== END 2024-04-08 14:42 | disposition home or self-care (01) ==
PROVIDERS: PCP Internal Medicine; Visit Provider Orthopaedic Surgery
DX: M20.029 Boutonniere deformity of unspecified finger(s) (principal); E11.9 Type 2 diabetes mellitus without complications; Z79.4 Long term (current) use of insulin
CPT/HCPCS: 99214

== ENCOUNTER 2024-04-22 13:11 | Outpatient (AMB) | payer OTHER, SELFPAY ==
[2024-04-22 13:50] VITALS: BMI 39.0
--- NOTE | 2024-04-22 13:50 | MHC.OFFVIS ---
Vital Signs 04/22/24 13:50 Height 5 ft 3 in Weight 220 lb BMI 39.0 Intake Visit Reasons: O/V RT SF proximal fx,S/P CRPP DOS: 11/11/23 Intake Note: Bautista is a 33 year old right hand dominant male who presents today for a ROM check s/p right Small Finger CRPP, DOS: 11/11/[address] Quintana. Patient reports he is limited ROM and has stiffness in his small finger. Patient has bought in finger splint he was goiven in O.T which states did not workmto keep his finger in extension. Allergies levofloxacin [From Levaquin] Adverse Reaction (Verified 04/22/24 13:50) Swelling, drooling quetiapine [From Seroquel] Adverse Reaction (Verified 04/22/24 13:50) Swelling HPI HPI O/V RT SF proximal fx,S/P CRPP DOS: 11/11/23: Details: Bautista is a 33 year old right hand dominant Diabetic man who returns S/P right small finger proximal phalanx CRPP, DOS: 11/11/23. He was also noted after discontinuing his cast that he had a significant extensor lag at the PIP joint of his small finger. OT hand therapy provided him with an extension splint to help improve his PIP flexion contracture and tightness of the volar plate. He has been wearing this for 8 hours a day, at night, and feels like it has helped some with the tightness on the volar side the PIP joint. However, he still has an extensor lag. He was discharged from OT due to visit non-compliance on 03/12/24. His most recent HgA1c was 6.8% on 11/27/23. He smokes Marijuana occasionally. 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 He says he has dogs and drives a stick shift, which he is worried will be difficult. 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 [facility] Medical History Uncontrolled type 2 diabetes mellitus with hyperglycemia Uncontrolled type 1 diabetes mellitus with hyperglycemia, without long-term current use of insulin Surgical History History of lung surgery Family History Mother Arthritis Other Family history of diabetes mellitus Social History Alcohol intake: current Alcohol intake frequency: does not drink Patient Tobacco Use Status: Never used Tobacco Second Hand Smoke Exposure: No Substance Use Type: Marijuana Current occupational status: employed Current occupation: [employer] [place], right hand dominant Review of Systems Const All systems reviewed & are unremarkable except as noted in HPI and below Physical Exam Vital Signs: BMI result Body Mass Index 39.0 Const General: no acute distress and alert Orientation/consciousness: patient oriented x3 Neuro General: patient oriented x3 Extrem Other: Evaluation of Right Upper Extremity: The patient is alert, oriented, and in no acute distress Neuro: Median, Ulnar, Radial nerves motor and sensory intact Vascular: Cap refill brisk ROM: He can bring his fingers closed to a fist He can actively extend his thumb, index, middle, and ring fingers fully at the MCP & PIP joints He can actively extend his small finger MCP joint, and also bring it into slight hyperextension He has an ~40 degree active extensor lag of the small finger PIP joint Passively his small finger can be brought almost into full extension He continues to have some tightness in the volar plate, though this appears to be improving with the nighttime splinting provided by OT. No hyper extension at the D IP joint/no boutonniere Radiographs three views of the right hand from 04/08/2024 were again reviewed. They show no fracture about the PIP joint of the right small finger. The proximal phalanx base fracture appears to have healed in satisfactory alignment. Psych Appearance: grossly normal Affect: normal affect Attitude: cooperative Assessment & Plan Assessment & Plan (1) Central slip extensor tendon injury (boutonniere): Code(s): M20.029 - Boutonniere deformity of unspecified finger(s) Category: Medical (2) Controlled type 2 diabetes mellitus: Code(s): E11.9 - Type 2 diabetes mellitus without complications Category: Medical Qualifiers: Diabetes mellitus complication status: without complication Diabetes mellitus senior living insulin use: with ferry terminal supervisor use Qualified Code(s): E11.9 - Type 2 diabetes mellitus without complications; Z79.4 - manager intermediate (current) use of insulin (3) 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 Right small finger PIP extension lag 2. Right small finger PIP flexion contracture At this point it is somewhat difficult to ascertain whether this is secondary to volar plate tightness and secondary weakness of the extensor mechanism, versus possible non laceration related rupture or stretching of the central slip. I educated him about this condition I discussed operative and non-operative treatment options We would both like to try and treat this non operatively. He has been wearing a custom nighttime splint made for him by OT hand therapy. This has likely been helpful in correcting his flexion contracture, and stretching the volar plate. He is going to continue to do this for a few more weeks while he finishes up his fall classes. Beginning after [place] I would like for him to change to 24/ splinting of the small finger PIP joint in extension, potentially for 6 weeks. I would like for OT to make him a volar splint that will allow for flexion at both the MCP and D IP joints but that will hold the PIP joint in full extension. If he can have 2 of the splints then he could change the splint after showering. He is going to be seen by OT on 04/28/2024. I am hopeful that they can provide this new splint for him to start wearing after . Any questions, and they can tiger text me or call. My plan would be to then check him at 4 weeks to see how well this is working to alleviate his extensor lag. If it is working then he would continue for 2 more weeks. At that time we would then switch to nighttime splinting for an additional 4 weeks. He does understands possible if this does not work that he may need operative treatment. 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 He will follow up in 6 weeks to see how he is doing. If he has managed to keep his finger splinted in extension at all times we may proceed to 6 weeks of 8 hours daily splinting. Otherwise we may again consider operative treatment 3. Right small finger proximal phalanx base fracture, S/P CRPP DOI: 10/30/23 DOS: 11/11/23 Good FDS & FDP tendon function K-wires removed: 12/11/23 This went on to heal well. Scribed for Makayla Quintana MD by Blayne Gilliland, medical technologist hematology, on 04/22/24 at 2:25 PM EST. 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
== END 2024-04-22 14:39 | disposition home or self-care (01) ==
PROVIDERS: PCP Internal Medicine; Visit Provider Orthopaedic Surgery
DX: M20.029 Boutonniere deformity of unspecified finger(s) (principal); E11.9 Type 2 diabetes mellitus without complications; Z79.4 Long term (current) use of insulin; M24.541 Contracture, right hand
CPT/HCPCS: 99214

== ENCOUNTER → 2024-04-22 13:11 | Outpatient (BNVA) | payer OTHER, SELFPAY | PROVIDERS: PCP Internal Medicine; Visit Provider Orthopaedic Surgery ==

== ENCOUNTER 2024-04-28 14:30 | Outpatient (RCR) | payer OTHER, SELFPAY ==
--- NOTE | 2024-04-29 14:43 | MHC.OT.EP ---
[address] [phone] Occupational Therapy Plan of Care Patient Name: Bautista Wiggins Date of Evaluation: 04/28/24 Diagnosis: Pt is a 33 yr. old R hand dominant male who had a CRPP surgery on 11/11/23. Pt attended OT therapy and was making great progress. He was d/charged in February of 2024 due to non compliance (pt's last visit was 01/27). He saw the MD on 04/08/2024 for a follow up and was referred to skilled OT Therapy at that time for fabrication of 2 orthoses. Pt did not follow up w/ OT to have the orthoses fabricated. Pt had another follow up w/ Dr. Quintana (04/22/24) who referred him again to OT therapy for fabrication of 2 orthoses in order to correct a central slip injury; pt is to be splinted for 24 hrs. for the next 6 weeks and will follow up w/ the MD accordingly. He presents today w/ a flexion contracture of 30/ but passively the PIP J can be brought to 0. Pt would benefit from PIP J extension splinting (to 0) and adhering to the wear schedule as provided by Dr. Quintana in order to improve the functional use of his R hand for participation in ADLs Pain Location: Pain Score: Pain Scale Used: Aggravating Factors: Alleviating Factors: Assessment: Pt is a 33 yr. old R hand dominant male who had a CRPP surgery on 11/11/23. Pt attended OT therapy and was making great progress. He was d/charged in February of 2024 due to non compliance (pt's last visit was 01/27). He saw the MD on 04/08/2024 for a follow up and was referred to skilled OT Therapy at that time for fabrication of 2 orthoses. Pt did not follow up w/ OT to have the orthoses fabricated. Pt had another follow up w/ Dr. Quintana (04/22/24) who referred him again to OT therapy for fabrication of 2 orthoses in order to correct a central slip injury; pt is to be splinted for 24 hrs. for the next 6 weeks and will follow up w/ the MD accordingly. He presents today w/ a flexion contracture of 30/ but passively the PIP J can be brought to 0. Pt would benefit from PIP J extension splinting (to 0) and adhering to the wear schedule as provided by Dr. Quintana in order to improve the functional use of his R hand for participation in ADLs Frequency and Duration: The patient will be seen Short Term Goals: SEE BELOW Trauma Director Goals: Pt. will be complaint w/ orthoses wear Pt will have 0 extension of his PIP J Treatment Plan: Therapeutic Exercise Splinting Patient Education Edema Control Electronically Signed By: Josiane Piper OTR/L Please Sign and return to therapist. Thank you once again for your referral.
== END 2024-04-29 14:50 | disposition home or self-care (01) ==
LOC: HO.OT 14:30
PROVIDERS: PCP Internal Medicine; Visit Provider Orthopaedic Surgery
DX: M20.021 Boutonniere deformity of right finger(s) (principal)
CPT/HCPCS: 97165; 97760

== ENCOUNTER 2024-05-18 15:13 | Outpatient (REF) | payer OTHER, SELFPAY ==
[2024-05-18 15:44] LABS: MANUAL DIFF FLAG NO
[2024-05-18 16:12] LABS: Basophils Absolute Auto 0.1 X10*3/uL (0.0-0.2); Basophils Percent Auto 0.5 % (0-2); Eosinophils Absolute Auto 0.1 X10*3/uL (0.0-0.4); Eosinophils Percent Auto 0.7 % (0-4); Hematocrit 43.8 % (42.0-52.0); Hemoglobin 14.6 g/dl (14.0-18.0); Imm Gran Abs Auto 0.04 X10*3/uL (0.00-0.03); Imm Gran Pct Auto 0.4 % (0.0-0.4); Lymphocytes Absolute Auto 1.9 X10*3/uL (1.2-4.9); Lymphocytes Percent Auto 18.5 % (20-40); Mean Corpuscular HGB Conc 33.3 g/dl (31.0-36.0); Mean Corpuscular Hemoglobin 28.3 pg (27.0-33.0); Mean Corpuscular Volume 84.9 fL (80.0-98.0); Mean Platelet Volume 10.9 fL (9.4-12.4); Monocytes Absolute Auto 0.5 X10*3/uL (0.1-1.2); Monocytes Percent Auto 5.1 % (2-11); Neutrophils Absolute Auto 7.6 x10*3/uL (2.0-8.3); Neutrophils Percent Auto 74.8 % (45-73); Platelet Count 271 X10*3/uL (160-400); Red Blood Count 5.16 X10*6/uL (4.60-5.80); Red Cell Distribution Width 13.1 % (11.0-16.0); White Blood Count 10.1 X10*3/uL (4.8-10.8)
[2024-05-18 16:37] LABS: Alanine Aminotransferase 24 U/L (0-40); Alkaline Phosphatase 86 U/L (39-117); Anion Gap 10 (12-20); Aspartate Amino Transferase 23 U/L (5-37); Bilirubin Total 0.5 mg/dL (0.0-1.0); Blood Urea Nitrogen 13 mg/dL (9-16); Calcium 8.5 mg/dL (8.4-10.2); Carbon Dioxide 24 mmol/L (22-29); Chloride 109 mmol/L (96-108); Cholesterol 132 mg/dL (<200); Estimated Glomerular Filt Rate > 60; Glucose Random 126 mg/dL (60-115); HDL Cholesterol 29 mg/dL (>40); LDL Cholesterol Calculated 79 mg/dL (<100); Potassium 3.9 mmol/L (3.3-5.1); Sodium 139 mmol/L (135-145); Total Protein 7.6 g/dL (6.5-8.0); Triglycerides 122 mg/dL (<150)
[2024-05-18 16:58] LABS: Creatinine Urine 197.21 mg/dL
[2024-05-19 03:55] LABS: HBS Num1 339.35 mIU/mL (0-7.99); ~Hepatitis B Surface Antibody REACTIVE (Nonreactive)
[2024-05-19 13:48] LABS: Rubella IgG Antibody 1.87 Index; Rubeola IgG (Measles) >300.00 AU/mL; Varicella IgG Antibody 5.66 S/CO
[2024-05-21 11:07] LABS: TS Negative Control Passed; TS Panel A 0; TS Panel B 0; TS Positive Control Passed; TSpotTB Negative (Negative)
== END 2024-05-18 15:14 | disposition home or self-care (01) ==
LOC: HO.LAB 15:13
PROVIDERS: PCP Internal Medicine; Visit Provider Internal Medicine
DX: Z00.01 Encounter for general adult medical examination with abnormal findings (principal); E11.9 Type 2 diabetes mellitus without complications; E78.00 Pure hypercholesterolemia, unspecified; I10 Essential (primary) hypertension
CPT/HCPCS: 36415; 80053; 80061; 82043; 82570; 85025; 86481; 86706; 86735; 86762; 86765; 86787

== ENCOUNTER 2024-05-28 08:55 | Outpatient (AMB) | payer OTHER, SELFPAY ==
--- NOTE | 2024-05-28 08:56 | MHC.OFFVIS ---
Vital Signs 05/28/24 08:57 Height 5 ft 3 in Weight 222 lb 10.67 oz BMI 39.4 BP 122/82 Blood Pressure Location Rt brachial Position Sitting Pulse 72 Pulse Source Pulse Oximeter Intake Visit Reasons: DM/Left vm Intake Note: Patient presents today for a follow-up on Type 1 Diabetes Mellitus: Last Diabetic eye exam was on: 06/2023 Last Podiatry Exam: Does not see a Student Liaison Officer Most recent HbA1c: 6.8%, 05/28/2024 Random Glucose- 186 mg/dL, Today Concrete Pavement Installer Required: No Accompanied by: Self / Same As Patient Allergies levofloxacin [From Levaquin] Adverse Reaction (Verified 04/22/24 13:50) Swelling, drooling quetiapine [From Seroquel] Adverse Reaction (Verified 04/22/24 13:50) Swelling HPI Comments Details: The patient is a 33 year old male with a past medical history of type 2 diabetes presenting for follow up. Diagnosed in 2021 in DKA Continues to well on iLet pump and the results have been remarkable. A1C is stable at 6.8%. Reviewed CGM today. 90% target 10% high. He seen residential appliance repair technician. Current regimen: humalog via iLET pump. On ARB, statin. Previously on short and long acting insulin preparations. Tried Mounjaro - had GI side effects. Stopped trulicity. No known microvascular, macrovascular complications. (-)alb/cr, LDL<100 Notes UTD eye exam Labs: Anti-LOREN 65 Ab were negative. C-peptide response was adequate ROS CONSTITUTIONAL: Denies weight loss, fever and chills. HEENT: Denies changes in vision and hearing. RESPIRATORY: Denies SOB and cough. CV: Denies palpitations and CP GI: Denies abdominal pain, nausea, vomiting and diarrhea. : Denies dysuria and urinary frequency. MSK: Denies new myalgia and joint pain. SKIN: Denies rash and pruritus. NEUROLOGICAL: Denies headache PSYCHIATRIC: Denies recent changes in mood. PHYSICAL EXAM: GENERAL: Alert and oriented x 3. NAD EYES: EOMI. Anicteric. HENT: Moist mucous membranes. No scleral icterus. No cervical lymphadenopathy. LUNGS: Clear to auscultation bilaterally. CARDIOVASCULAR: Regular rate and rhythm. No murmur. No JVD. ABDOMEN: Soft, non-tender +bs EXTREMITIES: No edema. Non-tender. SKIN: No rashes or lesions. Warm. NEUROLOGIC: No focal neurological deficits. CN II-XII grossly intact. Normal monofilament. Normal vibratory exam. +DP pulses bilaterally PSYCHIATRIC: Cooperative. Appropriate mood and affect [facility] Medical History Uncontrolled type 2 diabetes mellitus with hyperglycemia Uncontrolled type 1 diabetes mellitus with hyperglycemia, without long-term current use of insulin Surgical History History of lung surgery Family History Mother Arthritis Other Family history of diabetes mellitus Social History Alcohol intake: current Alcohol intake frequency: does not drink Patient Tobacco Use Status: Never used Tobacco Second Hand Smoke Exposure: No Substance Use Type: Marijuana Current occupational status: employed Current occupation: [employer] [place], right hand dominant Physical Exam Vital Signs: Last Vital Signs Pulse 72 05/28/24 08:57 BP 122/82 05/28/24 08:57 BMI result Body Mass Index 39.4 Results AMB Hemoglobin A1c AMB Hemoglobin A1c 6.8 % Last Edit by MONI Sy on 05/28/24 09:24 Results Reviewed Results Reviewed: Laboratory Last Values Glucose (Clinic) 186 mg/dL (60-115) H 05/28/24 09:04 Assessment & Plan Assessment & Plan (1) Controlled type 2 diabetes mellitus: Code(s): E11.9 - Type 2 diabetes mellitus without complications Category: Medical Qualifiers: Diabetes mellitus complication status: without complication Diabetes mellitus dope weigh operator insulin use: with residential use Qualified Code(s): E11.9 - Type 2 diabetes mellitus without complications; Z79.4 - chief executive officer (current) use of insulin Plan: controlled on ilet, insulin continue current regimen Follow up in 3 months here, 6 months with PCP rotating. UTD with eye exam. Orders: Orders AMB Hemoglobin A1c Today E10.65 - Type 1 diabetes mellitus with hyperglycemia Medications: Changed From blood sugar diagnostic (FreeStyle Lite Strips) As directed 3 times a day 10 ea E11.9 - Type 2 diabetes mellitus without complications, Z79.4 - retirement (current) use of insulin To FreeStyle Lite Strips (blood sugar diagnostic) As directed 3 times a day 200 ea 3RF NS E11.9 - Type 2 diabetes mellitus without complications, Z79.4 - chief executive officer (current) use of insulin Coding Level of Care Code Est Pt Level 3 (22657) Diagnoses Controlled type 2 diabetes mellitus without complication, with long-term current use of insulin E11.9; Z79.4 Diabetes mellitus complication status: without complication Diabetes mellitus residential insulin use: with dope weigh operator use
[2024-05-28 08:57] VITALS: BP 122/82; PULSE 72; BMI 39.4
[2024-05-28 09:08] LABS: Glucose, Whole Blood 186 mg/dL (60-115)
== END 2024-05-28 09:23 | disposition home or self-care (01) ==
PROVIDERS: PCP Internal Medicine; Visit Provider Internal Medicine
DX: E11.9 Type 2 diabetes mellitus without complications (principal); Z79.4 Long term (current) use of insulin; E10.65 Type 1 diabetes mellitus with hyperglycemia

== ENCOUNTER → 2024-05-28 08:55 | Outpatient (BNVA) | payer OTHER, SELFPAY | PROVIDERS: PCP Internal Medicine; Visit Provider Internal Medicine | DX: E11.9 Type 2 diabetes mellitus without complications (principal); Z79.4 Long term (current) use of insulin | CPT/HCPCS: 82947; 83036 ==

== ENCOUNTER 2024-08-26 09:46 | Outpatient (REF) | payer OTHER, SELFPAY ==
--- NOTE | ~2024-08-26 | XR_ITS ---
EXAMINATION: XR HAND 3 OR MORE VIEWS RIGHT HISTORY: M79.641 - Pain in right hand COMPARISON: Comparison is made with the prior examination dated 04/08/2024. FINDINGS: Three views of the right hand are submitted. Osseous mineralization is normal. The previously seen fracture of the base of the proximal phalanx of the 5th finger has healed. There is no acute fracture or dislocation. The joint spaces are preserved. The soft tissues are unremarkable. XR/XR hand RT min 3V IMPRESSION: The previously seen fracture at the base of the proximal phalanx of the 5th finger has healed. No acute abnormality is identified. Electronically signed by: Roderick Durand MD 08/26/2024 12:03 PM EDT
== END 2024-08-26 09:47 | disposition home or self-care (01) ==
LOC: HO.HOSX 09:46
PROVIDERS: Visit Provider Orthopaedic Surgery
DX: M79.641 Pain in right hand (principal)
CPT/HCPCS: 73130

== ENCOUNTER 2024-08-26 10:56 | Outpatient (AMB) | payer OTHER, SELFPAY ==
--- NOTE | 2024-08-26 11:15 | A.OFFVIS_ITS ---
Vital Signs 08/26/24 11:16 Height 5 ft 3 in Weight 222 lb BMI 39.3 Intake Visit Reasons: O/Vs/p right Small Finger CRPP, DOS: Intake Note: Bautista is a 33 year old right hand dominant male who presents today for a ROM check s/p right Small Finger CRPP, DOS: 11/11/[address] Quintana. States his finger has not straighten out since using the finger splint. States used his finger splint about 3 weeks and a day and then he woke up one day with out his splint. Allergies levofloxacin [From Levaquin] Adverse Reaction (Verified 08/26/24 11:18) Swelling, drooling quetiapine [From Seroquel] Adverse Reaction (Verified 08/26/24 11:18) Swelling HPI HPI O/Vs/p right Small Finger CRPP, DOS: : Details: Bautista is a 33 year old right hand dominant Diabetic man who returns to again discuss his right small finger boutonniere deformity. He was last seen in April and was sent to OT for 247 splinting of the PIP joint and active D IP flexion. He says that he wore the splint for about 3 weeks and then he lost it. He is interested in trying to treat this again. He is S/P right small finger proximal phalanx CRPP, DOS: 11/11/23. He was discharged from OT due to visit non-compliance on 03/12/24. His most recent HgA1c was 6.8% on 05/28/24 He smokes Marijuana occasionally. 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 He says he has dogs and drives a stick shift, which he is worried will be difficult. 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 [facility] Medical History Uncontrolled type 2 diabetes mellitus with hyperglycemia Uncontrolled type 1 diabetes mellitus with hyperglycemia, without long-term current use of insulin Surgical History History of lung surgery Family History Mother Arthritis Other Family history of diabetes mellitus Social History Alcohol intake: current Alcohol intake frequency: does not drink Patient Tobacco Use Status: Never used Tobacco Second Hand Smoke Exposure: No Substance Use Type: Marijuana Current occupational status: employed Current occupation: [employer] [place], right hand dominant Physical Exam Vital Signs: BMI result Body Mass Index 39.3 Const General: no acute distress and alert Orientation/consciousness: patient oriented x3 Neuro General: patient oriented x3 Extrem Other: Evaluation of Right Upper Extremity: The patient is alert, oriented, and in no acute distress Neuro: Median, Ulnar, Radial nerves motor and sensory intact Vascular: Cap refill brisk ROM: He can bring his fingers closed to a fist He has an ~40 degree active extensor lag of the small finger PIP joint Passively his small finger can be brought to ~10 degrees from full extension at the PIP joint Mild hyperextension at the DIP joint Radiographs 3 views of the right hand were taken and viewed by me today in clinic. They show no fracture about the PIP joint of the right small finger. The proximal phalanx base fracture appears to have healed in satisfactory alignment. Psych Appearance: grossly normal Affect: normal affect Attitude: cooperative Assessment & Plan Assessment & Plan (1) Central slip extensor tendon injury (boutonniere): Code(s): M20.029 - Boutonniere deformity of unspecified finger(s) Category: Medical (2) Controlled type 2 diabetes mellitus: Code(s): E11.9 - Type 2 diabetes mellitus without complications Category: Medical Qualifiers: Diabetes mellitus complication status: without complication Diabetes mellitus terminal superintendent insulin use: with snf use Qualified Code(s): E11.9 - Type 2 diabetes mellitus without complications; Z79.4 - terminal superintendent (current) use of insulin (3) 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 Right small finger PIP extension lag 2. Right small finger PIP flexion contracture At this point it is somewhat difficult to ascertain whether this is secondary to volar plate tightness and secondary weakness of the extensor mechanism, versus possible non laceration related rupture or stretching of the central slip. I educated him about this condition I discussed operative and non-operative treatment options We would both like to try and treat this non operatively. I again ordered OT hand therapy to work on stretching and reducing his flexion contracture. They will fashion 2 new a custom volar splint that will allow for flexion at both the MCP and DIP joints but that will hold the PIP joint in full extension, 10/12, for the next 8 weeks. He does understands possible if this does not work that he may need operative treatment, which would involve pinning the PIP joint in full extension. 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 He will follow up in 8 weeks to see how he is doing. No radiographs. 3. Right small finger proximal phalanx base fracture, S/P CRPP DOI: 10/30/23 DOS: 11/11/23 Good FDS & FDP tendon function K-wires removed: 12/11/23 This went on to heal well. Scribed for Makayla Quintana MD by Blayne Gilliland, medical biller coder, on 08/26/24 at 11:30 AM EST. Orders: Orders OT Evaluation and Treatment Today E11.9 - Type 2 diabetes mellitus without complications, M20.029 - Boutonniere deformity of unspecified finger(s), M24.541 - Contracture, right hand, Z79.4 - terminal superintendent (current) use of insulin XR hand RT min 3V Today M79.641 - Pain in right hand Coding Level of Care Code Est Pt Level 4 (96371) Diagnoses Central slip extensor tendon injury (boutonniere) M20.029 Controlled type 2 diabetes mellitus without complication, with long-term current use of insulin E11.9; Z79.4 Diabetes mellitus complication status: without complication Diabetes mellitus terminal superintendent insulin use: with terminal superintendent use 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
[2024-08-26 11:16] VITALS: BMI 39.3
== END 2024-08-26 11:48 | disposition home or self-care (01) ==
LOC: HO.HOS 10:57
PROVIDERS: PCP Internal Medicine; Visit Provider Orthopaedic Surgery
DX: M24.541 Contracture, right hand (principal); M20.021 Boutonniere deformity of right finger(s); E11.9 Type 2 diabetes mellitus without complications; Z79.4 Long term (current) use of insulin
CPT/HCPCS: 29125; 99214

== ENCOUNTER → 2024-08-26 11:00 | Outpatient (BNV) | payer OTHER, SELFPAY | PROVIDERS: Visit Provider Radiology Diagnostic Radiology | DX: M79.641 Pain in right hand (principal) | CPT/HCPCS: 73130 ==

== ENCOUNTER 2024-10-21 15:00 | Outpatient (AMB) | payer OTHER, SELFPAY ==
--- NOTE | 2024-10-21 15:01 | A.OFFVIS_ITS ---
Vital Signs 10/21/24 15:02 Height 5 ft 3 in Weight 221 lb 1.978 oz BMI 39.2 BP 120/80 Blood Pressure Location Rt brachial Position Sitting Pulse 93 Pulse Source Pulse Oximeter Pulse Oximetry (%) 96 Oxygen Delivery Method Room Air Intake Visit Reasons: T2DM Intake Note: Patient presents today for a follow-up on Type 1 Diabetes Mellitus: Last Diabetic eye exam was on: 06/2023 Last Podiatry Exam: Does not see a Director Of Strategic Sales Most recent HbA1c: DUE, 10/21/2024 Random Glucose- 118 mg/dL, Today Allergies levofloxacin [From Levaquin] Adverse Reaction (Verified 10/21/24 15:01) Swelling, drooling quetiapine [From Seroquel] Adverse Reaction (Verified 10/21/24 15:01) Swelling Medication List - Last Reconciled 10/21/24 by Kate Hdez MD acetone (urine) test (Ketostix strips) As directed alcohol swabs (Alcohol Prep Pads) pad topical atorvastatin 40 mg PO DAILY Contour Meter (blood-glucose meter) four times daily NS Contour Next Test Strips (blood sugar diagnostic) four times daily NS Dexcom G7 Sensor (blood-glucose sensor) DIRECTED CHANGE EVERY 10 DAYS NS FreeStyle Lite Strips (blood sugar diagnostic) As directed 3 times a day NS glucagon 3 mg/actuation (Baqsimi) 3 mg intranasal ONCE insulin infusion set-cartridge (iLET Infusion Kit-Inset 23 combo pack) As directed insulin lispro (Humalog U-100 Insulin) infuse up to 80 units via insulin pump subcutaneously 3 times a day; lancets (FreeStyle Lancets) As directed 3 times a day losartan 50 mg PO DAILY Microlet Lancet (lancets) four times daily NS pen needle, diabetic (BD Ultra-Fine Mini Pen Needle) As directed pen needle, diabetic (BD Stephanie 2nd Gen Pen Needle) As directed subcutaneous insulin pump (iLet Insulin Pump) As directed HPI Comments Details: The patient is a 33 year old male with a past medical history of type 2 diabetes presenting for follow up. Diagnosed in 2021 in DKA Continues to well on iLet pump and the results have been remarkable. Last A1C was stable-patient has had no interval issues. He is due for A1C but also LDL, urine so he will go today. Just started new sensor. Reviewed CGM today. . He seen natural resources extension educator. Current regimen: humalog via iLET pump. On ARB, statin. Previously on short and long acting insulin preparations. Tried Mounjaro - had GI side effects. Stopped trulicity. No known microvascular, macrovascular complications. (-)alb/cr, LDL<100 Notes UTD eye exam Labs: Anti-LOREN 65 Ab were negative. C-peptide response was adequate ROS CONSTITUTIONAL: Denies weight loss, fever and chills. HEENT: Denies changes in vision and hearing. RESPIRATORY: Denies SOB and cough. CV: Denies palpitations and CP GI: Denies abdominal pain, nausea, vomiting and diarrhea. : Denies dysuria and urinary frequency. MSK: Denies new myalgia and joint pain. SKIN: Denies rash and pruritus. NEUROLOGICAL: Denies headache PSYCHIATRIC: Denies recent changes in mood. PHYSICAL EXAM: GENERAL: Alert and oriented x 3. NAD EYES: EOMI. Anicteric. HENT: Moist mucous membranes. No scleral icterus. No cervical lymphadenopathy. LUNGS: Clear to auscultation bilaterally. CARDIOVASCULAR: Regular rate and rhythm. No murmur. No JVD. ABDOMEN: Soft, non-tender +bs EXTREMITIES: No edema. Non-tender. SKIN: No rashes or lesions. Warm. NEUROLOGIC: No focal neurological deficits. CN II-XII grossly intact. Normal monofilament. Normal vibratory exam. +DP pulses bilaterally PSYCHIATRIC: Cooperative. Appropriate mood and affect [facility] Medical History Uncontrolled type 2 diabetes mellitus with hyperglycemia Uncontrolled type 1 diabetes mellitus with hyperglycemia, without long-term current use of insulin Surgical History History of lung surgery Family History Mother Arthritis Other Family history of diabetes mellitus Social History Alcohol intake: current Alcohol intake frequency: does not drink Patient Tobacco Use Status: Never used Tobacco Second Hand Smoke Exposure: No Substance Use Type: Marijuana Current occupational status: employed Current occupation: [employer], right hand dominant Physical Exam Vital Signs: Last Vital Signs Pulse 93 10/21/24 15:02 BP 120/80 10/21/24 15:02 Pulse Ox 96 10/21/24 15:02 Oxygen Delivery Method Room Air 10/21/24 15:02 BMI result Body Mass Index 39.2 Assessment & Plan Assessment & Plan (1) Controlled type 2 diabetes mellitus: Code(s): E11.9 - Type 2 diabetes mellitus without complications Category: Medical Qualifiers: Diabetes mellitus long term acute care registered nurse insulin use: with fpc use Diabetes mellitus complication status: without complication Qualified Code(s): E11.9 - Type 2 diabetes mellitus without complications; Z79.4 - exterminator helper termite (current) use of insulin (2) Long-term insulin use: Code(s): Z79.4 - exterminator helper termite (current) use of insulin Category: Medical Plan Controlled diabetes, continues to do well on ilet, dexcom Labs pending If stable may follow up in 6 months Eye exam is UTD Orders: Orders Hepatitis B Surface Ab Qnt Today Z01.84 - Encounter for antibody response examination LDL Cholesterol Direct Today Z79.4 - exterminator helper termite (current) use of insulin Coding Level of Care Code Est Pt Level 4 (89948) Diagnoses Controlled type 2 diabetes mellitus without complication, with long-term current use of insulin E11.9; Z79.4 Diabetes mellitus fpc insulin use: with fpc use Diabetes mellitus complication status: without complication Long-term insulin use Z79.4
[2024-10-21 15:02] VITALS: BP 120/80; PULSE 93; O2SAT 96; BMI 39.2
[2024-10-21 15:12] LABS: Glucose, Whole Blood 118 mg/dL (60-115)
== END 2024-10-21 15:23 | disposition home or self-care (01) ==
LOC: HO.ENCR 15:00
PROVIDERS: PCP Internal Medicine; Visit Provider Internal Medicine
DX: E11.9 Type 2 diabetes mellitus without complications (principal); Z79.4 Long term (current) use of insulin

== ENCOUNTER → 2024-10-21 15:00 | Outpatient (BNVA) | payer OTHER, SELFPAY | PROVIDERS: PCP Internal Medicine; Visit Provider Internal Medicine | DX: E11.9 Type 2 diabetes mellitus without complications (principal); Z96.41 Presence of insulin pump (external) (internal); Z79.4 Long term (current) use of insulin | CPT/HCPCS: 82947 ==

== ENCOUNTER 2024-11-04 10:51 | Outpatient (AMB) | payer OTHER, SELFPAY ==
--- NOTE | 2024-11-04 10:55 | A.OFFVIS_ITS ---
Vital Signs 11/04/24 10:56 Height 5 ft 3 in Weight 221 lb BMI 39.1 Intake Visit Reasons: OV- Rt Small Finger CRPP, DOS: 11/10/-w/o XR Intake Note: Bautista is a 33 year old right hand dominant male who presents today for a ROM check s/p right Small Finger CRPP, DOS: 11/11/[address] Quintana. At his last visit he was sent to attend O.T. and get a new brace. He is aware that if this does not work that he may need operative treatment, which would involve pinning the PIP joint in full extension. 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 States he has been using his finger splint and has not bend at his PIP joint. STates he feels even with his splint on he is still able to bend at his PIP joint which he tries to avoid. Allergies levofloxacin (From Levaquin) Adverse Reaction (Verified 11/04/24 11:02) Swelling, drooling quetiapine (From Seroquel) Adverse Reaction (Verified 11/04/24 11:02) Swelling HPI HPI OV- Rt Small Finger CRPP, DOS: 11/10/-w/o XR: Details: Bautista is a 34 year old right hand dominant Diabetic man who returns to again discuss his right small finger boutonniere deformity. He was last seen & sent to OT for 10/12 splinting of the PIP joint and active DIP flexion. He is S/P right small finger proximal phalanx CRPP, DOS: 11/11/23. He says he has been wearing his splint as instructed these past 8 weeks, but he feels this is somewhat loose and he is still able to bend at the PIP joint, which he tries to avoid. He has been doing his best to avoid any PIP joint bending. He feels the only improvement he has made with wearing his splint is in active DIP flexion and extension His primary difficulty is with writing or typing activities while wearing the splint, which is impacting his school performance. His most recent HgA1c was 6.8% on 05/28/24 He smokes Marijuana occasionally. 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 He says he had to withdraw from the summer classes he was attending as he was not able to use the mouse & keyboard with his finger splint on. [facility] Medical History Uncontrolled type 2 diabetes mellitus with hyperglycemia Uncontrolled type 1 diabetes mellitus with hyperglycemia, without long-term current use of insulin Surgical History History of lung surgery Family History Mother Arthritis Other Family history of diabetes mellitus Social History Alcohol intake: current Alcohol intake frequency: does not drink Patient Tobacco Use Status: Never used Tobacco Second Hand Smoke Exposure: No Substance Use Type: Marijuana Current occupational status: employed Current occupation: [employer], right hand dominant Physical Exam Vital Signs: BMI result Body Mass Index 39.1 Const General: no acute distress and alert Orientation/consciousness: patient oriented x3 Neuro General: patient oriented x3 Extrem Other: Evaluation of Right Upper Extremity: The patient is alert, oriented, and in no acute distress Neuro: Median, Ulnar, Radial nerves motor and sensory intact Vascular: Cap refill brisk ROM: He can bring all of his fingers closed to a fist He no longer has a small finger boutonniere deformity. 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 Right small finger PIP extension lag ~25-30 degrees, improved from prior 2. Right small finger PIP flexion contracture, originally as part of a boutonniere deformity Improved At this point it is somewhat difficult to ascertain whether this is secondary to volar plate tightness and secondary weakness of the extensor mechanism, versus possible non laceration related rupture or stretching of the central slip. I educated him about this condition I discussed operative and non-operative treatment options He reports having been wearing his custom finger splint 10/12 for the last 2 months. He has been stretching and reducing his flexion contracture with exercises at home, and He is now able to place his hand flat on the table and actively flex the D IP joint with the PIP joint held in extension.. 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 The risks and benefits of operative treatment were discussed with the patient and the patient wishes to proceed with surgery. These risks include, but are not limited to risk of damage to blood vessels, nerves, tendons, infection, recurrence, incomplete relief of preoperative symptoms, persistent pain, possible need for further surgery and the risks associated with regional blocks and anesthesia. The plan is to take the patient to the operating room on 12/07/24 for the following procedures: 1. Right small finger pinning of PIP joint in extension, under general 2. Right small finger exploration & possible repair vs reconstruction of central slip, under general He understands that he will have a pin across the PIP joint for about 4 5 weeks. All of the preoperative paperwork including the consent was reviewed today. All the patient's questions were answered. The patient understands that they will be contacted by our space scheduler soon to schedule this procedure He denies blood thinners, asthma, heart, lung, kidney issues He is a Diabetic, his most recent HgA1c was 6.8% on 05/28/24. He will need an updated HgA1c that is <8.1% in order to proceed with surgery, and they expressed understanding 3. Right small finger proximal phalanx base fracture, S/P CRPP DOI: 10/30/23 DOS: 11/11/23 Good FDS & FDP tendon function K-wires removed: 12/11/23 This went on to heal well. Please note that greater than 30 minutes was spent with this patient going over the history, evaluating the patient and radiographs, formulating possible treatment options, discussing them with the patient, and documenting the visit. Scribed for Makayla Quintana MD by Blayne Gilliland, certified court/medical interpreter, on 11/04/24 at 11:15 AM EST. 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
[2024-11-04 10:56] VITALS: BMI 39.1
== END 2024-11-04 11:39 | disposition home or self-care (01) ==
LOC: HO.HOS 10:52
PROVIDERS: PCP Internal Medicine; Visit Provider Orthopaedic Surgery
DX: M20.021 Boutonniere deformity of right finger(s) (principal); M24.541 Contracture, right hand; E11.9 Type 2 diabetes mellitus without complications; Z79.4 Long term (current) use of insulin
CPT/HCPCS: 99214

== ENCOUNTER 2024-11-16 15:01 | Outpatient (REF) | payer OTHER, SELFPAY ==
[2024-11-16 16:32] LABS: Estimated Average Glucose 146 mg/dL; Hemoglobin A1c % 6.7 % (<6.0); Total Hemoglobin (HGBA1C) 3841.5296 umol/L
[2024-11-16 16:46] LABS: Creatinine Urine 133.28 mg/dL; Microalbum/Creatinine Ratio Ur 7.5 ug/mg cr (<30)
[2024-11-16 16:50] LABS: Alanine Aminotransferase 21 U/L (0-40); Albumin Level 4.2 g/dL (3.5-5.0); Alkaline Phosphatase 83 U/L (39-117); Anion Gap 12 (12-20); Aspartate Amino Transferase 21 U/L (5-37); Bilirubin Total 0.6 mg/dL (0.0-1.0); Blood Urea Nitrogen 13 mg/dL (9-16); Calcium 8.6 mg/dL (8.4-10.2); Carbon Dioxide 27 mmol/L (22-29); Chloride 106 mmol/L (96-108); Estimated Glomerular Filt Rate > 60; Glucose Random 95 mg/dL (60-115); Potassium 3.8 mmol/L (3.3-5.1); Sodium 141 mmol/L (135-145); Total Protein 7.5 g/dL (6.5-8.0)
[2024-11-17 06:29] LABS: Hepatitis B Surface Ab Qnt >1000 mIU/mL (> OR = 10)
[2024-11-17 09:29] LABS: LDL Cholesterol Direct 105 mg/dL (<100)
[2024-11-19 11:58] LABS: TS Negative Control Passed; TS Panel A 0; TS Panel B 0; TS Positive Control Passed; TSpotTB Negative (Negative)
== END 2024-11-16 15:02 | disposition home or self-care (01) ==
LOC: HO.LAB 15:01
PROVIDERS: Absent Provider Internal Medicine; PCP Internal Medicine; Visit Provider Internal Medicine
DX: Z01.84 Encounter for antibody response examination (principal); Z79.4 Long term (current) use of insulin; E11.9 Type 2 diabetes mellitus without complications; Z11.1 Encounter for screening for respiratory tuberculosis
CPT/HCPCS: 36415; 80053; 82043; 82570; 83036; 83721; 86317; 86481

== ENCOUNTER 2024-12-07 07:58 | Day surgery (SDC) | payer OTHER, SELFPAY ==
[2024-12-03 13:43] VITALS: BMI 39.1
--- NOTE | 2024-12-03 14:00 | HO.ANESPROP2 ---
Documented by User: Kayla Neal NP 12/03/24 14:05 HPI - Anesthesia Eval Consult details Narrative: 34yo M for Right Small finger Closed Reduction Perc Pinning,possible repair or Reconstruction of Central Slip s/p ~ same 10/2023 with GA-LMA 5 Lung Ca s/p LLL-ectomy 08/2023 cardiac w/u by [facility] for atypical CP. 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 (Acute) Central slip extensor tendon injury (boutonniere) (Acute) Stiffness of finger joint of right hand (Acute) Stiffness of finger joint (Acute) Long-term insulin use (Acute) Controlled type 2 diabetes mellitus (Acute) Fracture of proximal phalanx of digit of right hand (Acute) Atypical chest pain (Acute) Uncontrolled type 2 diabetes mellitus with hyperglycemia (Acute) Uncontrolled type 1 diabetes mellitus with hyperglycemia, without long-term current use of insulin (Acute) Past Medical History Medical History (Updated 12/03/24 @ 13:55 by Ирина Taylor RN) Carcinoid tumor of left lung Elevated cholesterol Controlled type 2 diabetes mellitus Family History Family History Mother Arthritis Other Family history of diabetes mellitus Family history of problems with anesthesia: No Surgical History Surgical History (Updated 12/03/24 @ 13:55 by Ирина Taylor RN) Hx of hand surgery History of lung surgery History of Problems with Anesthesia: No Social History Social History Alcohol intake: current Alcohol intake frequency: does not drink Patient Tobacco Use Status: Never used Tobacco Second Hand Smoke Exposure: No Substance Use Type: Marijuana Have you been hit, kicked, punched, or otherwise hurt by someone within the past year? If so, by whom?: No Are you DNR?: No Advance Directives: No Advance Directives Information Provided: Yes Current occupational status: employed Current occupation: [employer] [facility] [employer], right hand dominant Meds Allergies Allergy/AdvReac Type Severity Reaction Status Date / Time levofloxacin (From Levaquin) AdvReac Swelling, Verified 11/04/24 11:02 drooling quetiapine (From Seroquel) AdvReac Swelling Verified 11/04/24 11:02 Home Medications ?Medication ?Instructions ?Recorded ?Confirmed ?Last Taken ?Type alcohol swabs (Alcohol Prep Pads) pad topical 10/05/21 09/04/23 Unknown History pen needle, diabetic 31 gauge x #50 ea 10/05/21 05/02/22 Unknown History 3/16 (BD Ultra-Fine Mini Pen Needle) lancets 28 gauge (FreeStyle #100 ea 05/02/22 05/02/22 Unknown History Lancets) pen needle, diabetic 32 gauge x #50 ea 05/02/22 05/02/22 Unknown History (BD Stephanie 2nd Gen Pen Needle) atorvastatin 40 mg tablet 40 mg PO DAILY 07/24/23 12/03/24 Unknown History losartan 50 mg tablet 50 mg PO DAILY 07/24/23 12/03/24 Unknown History subcutaneous insulin pump (iLet #1 ea 11/26/23 Unknown History Insulin Pump) Exam Height,Weight and Vital Signs: Height 5 ft 3 in Weight 100.244 kg Pertinent Lab Results Pertinent Lab Results: Laboratory Tests 05/18/24 11/16/24 15:35 15:20 WBC 10.1 Hgb 14.6 Hct 43.8 Plt Count 271 Sodium 141 Potassium 3.8 Chloride 106 Carbon Dioxide 27 BUN 13 Creatinine 0.88 Narrative Narrative: EKG 08/2023 normal sinus rhythm with inferior Q-waves ECHO 08/2023 Conclusions: - 1. Technically limited study 2. Normal LV ejection fraction 55-60% next 3. Cardiac valvular Dopplers within normal limits Exercise Stress 08/2023 Protocol: YURIY Max HR: 160 BPM 85% of Pred: 187 BPM Max BP: 150/080 mmHG Max Work Load: 9.9 METS Exercise stress test exercise 7 min 55 sec of Yuriy protocol achieving 85% MPHR, with mild SOB, without chest discomfort, without arrhythmias, with normotensive resposne to exercise, without EKG changes. Breathing resolved with rest. Test reviewed with Dr. Nava Assessment and Plan Assessment Anesthesia Assessment: Chart Reviewed Final Anesthetic Review Family History of Problems with Anesthesia: No History of Problems with Anesthesia: No Documented by User: Marcos Resendez MD 12/07/24 09:11 [facility] Past Medical History Medical History (Updated 12/03/24 @ 13:55 by Ирина Taylor, SAVANAH) Carcinoid tumor of left lung Elevated cholesterol Controlled type 2 diabetes mellitus Family History Family History Mother Arthritis Other Family history of diabetes mellitus Surgical History Surgical History (Updated 12/03/24 @ 13:55 by Ирина Taylor RN) Hx of hand surgery History of lung surgery Social History Social History Alcohol intake: current Alcohol intake frequency: does not drink Patient Tobacco Use Status: Never used Tobacco Second Hand Smoke Exposure: No Substance Use Type: Marijuana Have you been hit, kicked, punched, or otherwise hurt by someone within the past year? If so, by whom?: No Are you DNR?: No Advance Directives: No Advance Directives Information Provided: Yes Current occupational status: employed Current occupation: [employer], right hand dominant Meds Allergies Allergy/AdvReac Type Severity Reaction Status Date / Time levofloxacin (From Levaquin) AdvReac Swelling, Verified 11/04/24 11:02 drooling quetiapine (From Seroquel) AdvReac Swelling Verified 11/04/24 11:02 Home Medications ?Medication ?Instructions ?Recorded ?Confirmed ?Last Taken ?Type alcohol swabs (Alcohol Prep Pads) pad topical 10/05/21 09/04/23 Unknown History pen needle, diabetic 31 gauge x #50 ea 10/05/21 05/02/22 Unknown History 08/02 (BD Ultra-Fine Mini Pen Needle) lancets 28 gauge (FreeStyle #100 ea 05/02/22 05/02/22 Unknown History Lancets) pen needle, diabetic 32 gauge x #50 ea 05/02/22 05/02/22 Unknown History (BD Stephanie 2nd Gen Pen Needle) atorvastatin 40 mg tablet 40 mg PO DAILY 07/24/23 12/03/24 Unknown History losartan 50 mg tablet 50 mg PO DAILY 07/24/23 12/03/24 Unknown History subcutaneous insulin pump (iLet #1 ea 11/26/23 Unknown History Insulin Pump) Exam Airway Mallampati Class: III TM Dist: <=3cm Neck ROM: Full Loose/Missing/Broken Teeth: No Heart: RRR Lungs: CTA Assessment and Plan Assessment Anesthesia Assessment: Anesthesia Plan Discussed Final Anesthetic Review NPO: Yes ASA Class: III Final Preanesthetic Review: No Changes in Pt Med Stat, Meds/Allgs Chart Reviewed, Consent Obtained/Reviewed and Anes Risks/Benef Reviewed Patient Risk: Intermediate Procedure Risk: Low Anesthetic Plan Anesthetic Plan: GA Disposition: Standard PACU
[2024-12-07] VITALS (7 sets, daily range): BP systolic 119–138; BP diastolic 74–88; PULSE 57–78; RESP 18–24; TEMP 36.4–36.9; O2SAT 93–100; BMI 17.7
--- NOTE | ~2024-12-07 | FL_ITS ---
EXAMINATION: FL GUIDANCE ONLY HISTORY: finger pinning COMPARISON: Correlation is made with plain films of the right hand dated 08/26/2024. TECHNIQUE: Fluoroscopy time: 25.28 seconds. Cumulative Dose: 0.4283 mGy. DAP: 0.0259 mGym2 Images: 2. FINDINGS: Fluoroscopic spot films of the right 5th finger demonstrate a K wire across the PIP joint. FL/FL guidance in OR IMPRESSION: Fluoroscopy during procedure. Please see procedure report for additional information. Electronically signed by: Roderikc Durand MD 12/08/2024 07:01 AM EDT
[2024-12-07] MEDS: Lactated Ringers 1,000 ML 100 ML IVCONT (08:27)
--- NOTE | 2024-12-07 09:06 | HO.ANESPROP2 ---
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 (Acute) Central slip extensor tendon injury (boutonniere) (Acute) Stiffness of finger joint of right hand (Acute) Stiffness of finger joint (Acute) Long-term insulin use (Acute) Controlled type 2 diabetes mellitus (Acute) Fracture of proximal phalanx of digit of right hand (Acute) Atypical chest pain (Acute) Uncontrolled type 2 diabetes mellitus with hyperglycemia (Acute) Uncontrolled type 1 diabetes mellitus with hyperglycemia, without long-term current use of insulin (Acute) Past Medical History Medical History (Updated 12/03/24 @ 13:55 by Ирина Taylor RN) Carcinoid tumor of left lung Elevated cholesterol Controlled type 2 diabetes mellitus Family History Family History Mother Arthritis Other Family history of diabetes mellitus Family history of problems with anesthesia: No Surgical History Surgical History (Updated 12/03/24 @ 13:55 by Ирина Taylor RN) Hx of hand surgery History of lung surgery History of Problems with Anesthesia: No Social History Social History Alcohol intake: current Alcohol intake frequency: does not drink Patient Tobacco Use Status: Never used Tobacco Second Hand Smoke Exposure: No Substance Use Type: Marijuana Have you been hit, kicked, punched, or otherwise hurt by someone within the past year? If so, by whom?: No Are you DNR?: No Advance Directives: No Advance Directives Information Provided: Yes Current occupational status: employed Current occupation: [employer], right hand dominant Meds Allergies Allergy/AdvReac Type Severity Reaction Status Date / Time levofloxacin (From Levaquin) AdvReac Swelling, Verified 11/04/24 11:02 drooling quetiapine (From Seroquel) AdvReac Swelling Verified 11/04/24 11:02 Active Medications: Current Medications Lactated Ringer's (Lr) 1,000 mls @ 100 mls/hr IVCONT .Q10H MINOR Last Admin: 12/07/24 08:27 Dose: 100 mls/hr Home Medications ?Medication ?Instructions ?Recorded ?Confirmed ?Last Taken ?Type alcohol swabs (Alcohol Prep Pads) pad topical 10/05/21 09/04/23 Unknown History pen needle, diabetic 31 gauge x #50 ea 10/05/21 05/02/22 Unknown History 08/02 (BD Ultra-Fine Mini Pen Needle) lancets 28 gauge (FreeStyle #100 ea 05/02/22 05/02/22 Unknown History Lancets) pen needle, diabetic 32 gauge x #50 ea 05/02/22 05/02/22 Unknown History (BD Stephanie 2nd Gen Pen Needle) atorvastatin 40 mg tablet 40 mg PO DAILY 07/24/23 12/03/24 Unknown History losartan 50 mg tablet 50 mg PO DAILY 07/24/23 12/03/24 Unknown History subcutaneous insulin pump (iLet #1 ea 11/26/23 Unknown History Insulin Pump) Exam Height,Weight and Vital Signs: Height 5 ft 3 in Weight 100 lb 3.2 oz Last Vital Signs Temp 98.5 F 12/07/24 08:16 Pulse 78 12/07/24 08:16 Resp 20 12/07/24 08:16 BP 138/88 12/07/24 08:16 Pulse Ox 96 12/07/24 08:16 O2 Del Method Room Air 12/07/24 08:16 Assessment and Plan Final Anesthetic Review Family History of Problems with Anesthesia: No History of Problems with Anesthesia: No
--- NOTE | 2024-12-07 10:12 | MHC.SHP ---
Pre-Procedural Eval Section A - 24 Hr Update-Section A only Date of Service: 12/07/24 The patient is an INPATIENT: No Changes since office visit: No Cold of Flu in the past 2 weeks, No New Medical Problems, No Changes in Medication and No Patient answered all questions The patient has been examined within 24 hours of the surgical procedure. The History & Physical has been completed within 30 days and I have reviewed it.: Yes Section B - Complete if H&P > 30 days Chief Complaint: Boutonniere deformity of unspecified finger(s) Allergies: Allergies Allergy/AdvReac Type Severity Reaction Status Date / Time levofloxacin (From Levaquin) AdvReac Swelling, Verified 11/04/24 11:02 drooling quetiapine (From Seroquel) AdvReac Swelling Verified 11/04/24 11:02 Plan I have reviewed the history and physical and performed a pertinent physical examination on my patient. No changes have occurred unless specified. Time Spent With Patient Time: Total time managing care of this patient today ____ minutes.
--- NOTE | 2024-12-07 10:16 | W.PM.OPN ---
Operative Note Operative Note Date of Service: 12/07/24 Narrative: Operative Note Narrative: Preop diagnosis: 1. Right small finger boutonniere deformity Postop diagnosis: Same Procedure: 1. Right small finger closed reduction percutaneous pinning of the PIP joint in extension 2. Right small finger exploration of extensor mechanism and release of adhesions between the extensor mechanism and the dorsal aspect of the proximal phalanx bone. Surgeon: Makayla Quintana MD Communication Analyst: None Anesthesia: General Anesthesia Findings: Adhesions were noted between the extensor mechanism of the right small finger and the dorsal aspect of the small finger proximal phalanx. After the adhesions were released, tension on the extensor mechanism resulted in extension of the PIP and D IP joints. Also, we noted that there was no defect in the central slip extensor tendon. Implants: 0.045 K-wire x1 Tourniquet time: 65 minutes EBL: 5.0 ml Specimen: None Drains: None Complications: None Disposition: Brought to the recovery room in stable condition Plan: Follow-up in 10-14 days for wound check, suture removal and pre clinic radiographs. Remove the K-wire at 2 weeks. Begin OT same day as 1st postop appointment. Patient should have a night splint holding the PIP joint in extension with encouragement for active D IP flexion. Patient should also work on active flexion to a full fist and then extension to full extension with exercises encouraged by OT. Indications: The patient is a 34 year old man who developed a boutonniere deformity of his right small finger following CRPP of his right small finger proximal phalanx fracture. . The risks and benefits of operative treatment, including but not limited to risk of damage to blood vessels, nerves, tendons, infection, recurrence, persistent pain or numbness, incomplete resolution of preoperative symptoms, or need for further surgery were discussed with the patient and they wished to proceed with surgery. Procedure: Once consent was obtained patient was brought back to the operating suite and placed in the operating table in a supine position. . Perioperative antibiotics and anesthesia was administered by the anesthesia team. A tourniquet was applied to the proximal aspect of the right upper extremity and the limb was prepped and draped in a standard surgical fashion. The limb was elevated exsanguinated with Esmarch bandage and the tourniquet inflated to 250 mm of mercury for a total tourniquet time of 65 minutes. I made a dorsal longitudinal incision exposing the extensor mechanism from the PIP joint to the MCP joint. I passed some tenotomy scissors between the distal aspect of the extensor mechanism and the dorsal aspect of the distal proximal phalanx of the small finger. It then became apparent that he had adhesions between the dorsal aspect of the proximal phalanx and the majority of the extensor mechanism. I then went ahead and released adhesions from distal to proximal using both tenotomy scissors and a [place] elevator. I made a 1.5 cm longitudinal incision over the dorsal aspect of the 5th metacarpal to provide access to the EDQ tendon and the EDC tendon to the small finger. I then dissected down to these 2 tendons. I then applied some tension on these tendons to see if we can get extension of the small finger. Once satisfied with this I then applied tension to the extensor mechanism over the proximal phalanx to be assured that we could get extension at the PIP and D IP joints. I did make a longitudinal incision between the central slip and the radial lateral band. This allowed me to better evaluate the central slip tendon, which was found to be intact and without visible defect. I then repaired the incision between the central slip and the lateral band using some 4-0 Vicryl. While I could get the small finger PIP joint into full extension, I felt that the volar plate was still somewhat tight. I therefore elected to pin the PIP joint in extension for a couple of weeks. A closed reduction of the PIP joint of the right small finger was performed, bringing it into full extension.? I then passed a single 0.045 K-wire obliquely across the PIP joint holding it in extension.? Once satisfied with the position of the K-wire under fluoroscopic images it was bent cut short had a pin cap applied. At this point the tourniquet was deflated and hemostasis obtained with a brief period of local pressure and bipolar electrocautery. The wound was copiously irrigated with normal saline. The skin edges were reapproximated with 5-0 nylon suture. An ulnar nerve block was performed infiltrating about the ulnar nerve at the wrist with some 1% lidocaine with epinephrine for postop pain control. A sterile dressing and a volar splint extending from the fingertips of the ring and small fingers to the volar forearm were applied. The patient appears to have tolerated the procedure well and with no complications. All digits were well vascularized conclusion of the case.
== END 2024-12-07 13:28 | disposition home or self-care (01) ==
PROVIDERS: PCP Internal Medicine; Visit Provider Orthopaedic Surgery
PROC: (CPT 26776; principal; 2024-12-07 09:40)
DX: M20.021 Boutonniere deformity of right finger(s) (principal); M67.843 Other specified disorders of tendon, right hand; M24.541 Contracture, right hand; Z98.890 Other specified postprocedural states; E11.9 Type 2 diabetes mellitus without complications; Z79.4 Long term (current) use of insulin; E78.00 Pure hypercholesterolemia, unspecified; Z79.899 Other long term (current) drug therapy; Z88.1 Allergy status to other antibiotic agents; Z88.8 Allergy status to other drugs, medicaments and biological substances
CPT/HCPCS: 26776; 26445; J0131; J0690; J1885; J2003; J2004; J2250; J2405; J2704; J3010

== ENCOUNTER → 2024-12-07 07:58 | Outpatient (BNV) | payer OTHER, SELFPAY | PROVIDERS: PCP Internal Medicine; Visit Provider Orthopaedic Surgery | DX: M20.021 Boutonniere deformity of right finger(s) (principal) | CPT/HCPCS: 26426; 26727 ==

== ENCOUNTER 2024-12-21 09:31 | Outpatient (REF) | payer OTHER, SELFPAY ==
--- NOTE | ~2024-12-21 | XR_ITS ---
EXAMINATION: XR HAND 3 OR MORE VIEWS RIGHT HISTORY: M79.641 - Pain in right hand COMPARISON: Comparison is made with the prior examination dated 08/26/2024. FINDINGS: Three splinted views of the right hand are submitted. The splint obscures fine bony detail. There is no fracture or dislocation. There is been interval placement of a K wire across the PIP joint of the 5th finger. The soft tissues are unremarkable. XR/XR hand RT min 3V IMPRESSION: Interval placement of a K wire across the PIP joint of the 5th finger. Electronically signed by: Roderick Durand MD 12/21/2024 10:18 AM EDT
== END 2024-12-21 09:32 | disposition home or self-care (01) ==
LOC: HO.HOSX 09:31
PROVIDERS: PCP Internal Medicine
DX: Z47.89 Encounter for other orthopedic aftercare (principal); M20.021 Boutonniere deformity of right finger(s); M24.541 Contracture, right hand; M79.641 Pain in right hand
CPT/HCPCS: 73130

== ENCOUNTER → 2024-12-21 09:36 | Outpatient (BNV) | payer OTHER, SELFPAY | PROVIDERS: PCP Internal Medicine; Visit Provider Radiology Diagnostic Radiology | DX: M79.641 Pain in right hand (principal) | CPT/HCPCS: 73130 ==

== ENCOUNTER 2024-12-21 09:54 | Outpatient (AMB) | payer OTHER, SELFPAY ==
[2024-12-21 10:05] VITALS: BMI 17.7
--- NOTE | 2024-12-21 10:05 | A.OFFVIS_ITS ---
Vital Signs 12/21/24 10:05 Height 5 ft 3 in Weight 100 lb BMI 17.7 Intake Visit Reasons: PO:Rt SF CRPP, poss repair/recon of central slip Intake Note: Bautista is a 34 year old right hand dominant male who presents today for their first post-operative visit status post right small finger CRPP and right small finger exploration of extensor mechanism and release of adhesions between the extensor mechanism and the dorsal aspect of the proximal phalanx bone, DOS: 12/07/[address] Quintana. Patient reports he is doing well besides ocassional pain after driving. Sutures removed and steri strips applied. Allergies levofloxacin (From Levaquin) Adverse Reaction (Verified 12/21/24 10:06) Swelling, drooling quetiapine (From Seroquel) Adverse Reaction (Verified 12/21/24 10:06) Swelling HPI HPI PO:Rt SF CRPP, poss repair/recon of central slip: Details: Bautista is a 34 year old right hand dominant male who presents today for their first post-operative visit status post right small finger CRPP and right small finger exploration of extensor mechanism and release of adhesions between the extensor mechanism and the dorsal aspect of the proximal phalanx bone, DOS: 12/07/[address] Quintana. Patient reports he is doing well besides ocassional p ain after driving. Sutures removed and steri strips applied. [facility] Medical History (Updated 12/03/24 @ 13:55 by Ирина Taylor RN) Carcinoid tumor of left lung Elevated cholesterol Controlled type 2 diabetes mellitus Surgical History (Updated 12/03/24 @ 13:55 by Ирина Taylor RN) Hx of hand surgery History of lung surgery Family History Mother Arthritis Other Family history of diabetes mellitus Social History Alcohol intake: current Alcohol intake frequency: does not drink Patient Tobacco Use Status: Never used Tobacco Second Hand Smoke Exposure: No Substance Use Type: Marijuana Current occupational status: employed Current occupation: [employer] [place], right hand dominant Review of Systems Const All systems reviewed & are unremarkable except as noted in HPI and below Physical Exam Vital Signs: BMI result Body Mass Index 17.7 Extrem Other: Patient is alert, oriented, and in no acute distress. Neuro: Normal sensation of the tips of all digits of the right hand at this time Vascular: Cap refill brisk Pain: No tenderness to palpation about incision/pin site of right small finger Some discomfort with range of motion ROM: Patient is able to get close to making a closed fist with the right hand, patient is able to almost extend the PIP joint of the right small finger fully Skin: Well approximated and well healing incision site noted on the dorsal aspect of the right small finger No lacerations or abrasions. General: No ecchymosis, erythema, or evidence of infection. Psych: Appears grossly normal Affect normal Attitude cooperative Results Reviewed Results Reviewed: X-rays obtained in the office today and independently reviewed by me, Felix Chahal PA-C, demonstrate K-wire across the PIP joint of the right small finger holding the PIP and extension in satisfactory clinical alignment. 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 Status post right small finger CRPP and adhesion release of extensor mechanism of right small finger DOS 12/07/2024 Sutures removed, Steri-Strips applied Pin pulled in the office today without issue Patient is provided with finger splint to wear at night to for the PIP joint and extension Patient will follow-up with occupational therapy later today for beginning of early range of motion of the right small finger 2 lb weight limit until follow-up Patient should work on gentle active and passive range of motion while awake Patient understands this is amenable to this plan No submerging the hand for one-week, can wash with soap and water in the sink or shower starting tomorrow if pin site appears well closed, if not sure wait 1 further day Patient is amenable to this plan Follow-up in 2 weeks for reassessment, sooner with any acute concerns Orders: Orders XR hand RT min 3V Today M79.641 - Pain in right hand Coding Level of Care Code Global (12203) Diagnoses Central slip extensor tendon injury (boutonniere) M20.029 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
== END 2024-12-21 11:08 | disposition home or self-care (01) ==
LOC: HO.HOS 09:55
PROVIDERS: PCP Internal Medicine
DX: M20.029 Boutonniere deformity of unspecified finger(s) (principal); M24.541 Contracture, right hand
CPT/HCPCS: 99024

== ENCOUNTER 2025-01-28 14:30 | Outpatient (RCR) | payer OTHER, SELFPAY ==
--- NOTE | 2024-12-23 09:27 | MHC.OT.EP ---
[address] [phone] Occupational Therapy Plan of Care Patient Name: Bautista Wiggins Date of Evaluation: 12/23/24 Diagnosis: Boutonniere Deformity SF Central slip extensor tendon injury Pain Location: Pain Score: Pain Scale Used: Aggravating Factors: Alleviating Factors: Assessment: Pt is a 34 yr old R hand dominant male who originally injured his R SF when he tripped and fell on a curb. He saw ortho a few days later and he was splinted to decrease his boutonniere deformity (central slip injury), they decided to handle the injury conservatively w/ splinting and casting. These unfortunately did not work and pt had surgery 2 weeks ago ; they debrided the finger nd pt had surgery to repair the central slip extensor tendon.. Pt previous to todays appt had his pin removed and his stitches removed; he was given a splint for extension at night per ortho. 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 Thank you once again for your referral.
== END 2025-03-15 11:12 | disposition home or self-care (01) ==
LOC: HO.OT 14:30
PROVIDERS: PCP Internal Medicine; Visit Provider Orthopaedic Surgery
DX: M20.021 Boutonniere deformity of right finger(s) (principal)
CPT/HCPCS: 97110; 97140; 97166; 97760